=== PATIENT | male | born 1950 | race Caucasian/White ===

== ENCOUNTER 2019-09-23 06:00 | Outpatient (CLI) | payer MEDICARE, OTHER, SELFPAY ==
--- NOTE | 2019-09-23 | MR_ITS ---
WS: [id number] MRI LEFT SHOULDER NONCONTRAST TECHNIQUE: Sagittal T2, coronal T1, T2 and proton density imaging. Axial gradient PDE imaging. CLINICAL INFORMATION: CHRONIC PAIN, TENDONITIS OF BOTH SHOULDERS COMPARISON: None. FINDINGS: Moderate degenerative arthritis at the AC joint with moderate downsloping of the acromion. Loss of th e subacromial space with chronic thinning of the supraspinatus. Small amount of subacromial/subdeltoi d fluid. Edema at the AC joint. Near full-thickness tear of the supraspinatus measuring 1.5 cm. This is approximately 1.8 cm from the insertion. Chronic appearing atrophy of the supraspinatus muscle be lly. Tendinopathy in the infraspinatus which is otherwise intact. Normal teres minor. Chronic thinning of the subscapularis tendon with a small intrasubstance tear. Chronic diffuse thinni ng of the subscapularis tendon distally which appears intact. Small amount of fluid in the subcoracoi d bursa. Atrophic biceps tendon in the bicipital groove. Diffuse thinning of the intra-articular belen ps tendon. Chronic appearing diffuse irregularity involving the glenoid labrum. Suspected chronic wilder earing SLAP tear. Degenerative narrowing of the glenohumeral joint. MR/MR shoulder LT wo con* [id number] IMPRESSION: 1. Near full-thickness tear involving the supraspinatus measuring 1.5 cm with diffuse thinning of the tendon distally. Tear is 1.8 cm from insertion. 2. Moderate degenerative arthritis at the AC joint with downsloping of the acr omium and loss of the subacromial space. Edema at the AC joint with a small yue unt of subacromial/subdeltoid fluid.. 3. Chronic thinning of the subscapularis tendon distally with a small intrasub stance tear. 4. Diffuse thinning and atrophy long head of the biceps tendon in the bicipita l groove. Chronic appearing diffuse thinning of the intra-articular portion of the biceps tendon. 5. Degenerative fraying with chronic appearing SLAP tear involving the glenoid labrum.
== END 2019-09-23 06:01 | disposition home or self-care (01) ==
LOC: MRI 09-24 08:22
PROVIDERS: Family Provider Family Medicine; PCP Family Medicine; Visit Provider Specialist
DX: S43.432A Superior glenoid labrum lesion of left shoulder, initial encounter (principal); M77.8 Other enthesopathies, not elsewhere classified; M25.512 Pain in left shoulder; G89.29 Other chronic pain; M19.012 Primary osteoarthritis, left shoulder; M19.011 Primary osteoarthritis, right shoulder; X58.XXXA Exposure to other specified factors, initial encounter
CPT/HCPCS: 73221

== ENCOUNTER → 2019-09-30 09:51 | Outpatient (BNVA) | payer MEDICARE, OTHER, SELFPAY | PROVIDERS: Family Provider Family Medicine; PCP Family Medicine; Referring Provider Family Medicine; Visit Provider Internal Medicine Rheumatology | DX: M35.3 Polymyalgia rheumatica (principal); Z79.899 Other long term (current) drug therapy; M17.11 Unilateral primary osteoarthritis, right knee; M19.041 Primary osteoarthritis, right hand; M19.042 Primary osteoarthritis, left hand; Z79.52 Long term (current) use of systemic steroids | CPT/HCPCS: 99214 ==

== ENCOUNTER → 2019-10-04 10:56 | Outpatient (BNVA) | payer MEDICARE, OTHER, SELFPAY | PROVIDERS: Family Provider Family Medicine; PCP Family Medicine; Referring Provider Specialist; Visit Provider Psychiatry & Neurology Neurology | DX: G56.02 Carpal tunnel syndrome, left upper limb (principal); Z87.891 Personal history of nicotine dependence | CPT/HCPCS: 95886; 95908 ==

== ENCOUNTER 2019-10-29 06:46 | Day surgery (SDC) | payer MEDICARE, OTHER, SELFPAY ==
[2019-10-28 10:44] VITALS: BMI 29.0
[2019-10-29 07:07] VITALS: BP 161/85; PULSE 75; RESP 16; TEMP 36.3; O2SAT 97
--- NOTE | 2019-10-29 07:13 | ANES.PREANE2 ---
Pre-Anesthetic Assessment Pre-Anesthetic Assessment: Height/Weight: Height 1.88 m Weight 102.512 kg Temp Pulse Resp BP Pulse Ox 97.4 F L 75 16 161/85 97 10/29/19 07:07 10/29/19 07:07 10/29/19 07:07 10/29/19 07:07 10/29/19 07:07 Preop Diagnosis: Left carpal tunnel syndrome Proposed Procedure: Operation Date: 10/29/19 08:30 Proposed Procedures p Carpal Tunnel Release 64052 G56.02(Left) - Catie Pritchett MD Last intake: Intake Last Liquid Date 10/29/19 Last Liquid Time 06:45 Last Solid Date 10/28/19 Last Solid Time 19:00 Social: Social History: Alcohol (daily) and Tobacco (quit 2017) Exam: Pre-Anes Outpt Exam: alert, oriented x 3, clear to auscultation bilaterally and regular rate & rhythm Airway: Submandibular: WNL Cervical ROM: WNL MP: 1 Dentition: Other (teeth ok) Pulmonary: Pulmonary: None reported CV/HEM: CV/HEM: CAD and HTN Comments: H/O CABG 2017 : : None reported Hepatic: Hepatic: None reported GI: GI: GERD Metabolic: Metabolic: DM (diet controlled) and Hyperlipidemia Musc/skel: Musc/skel: OA/DJD Neuropsych: Neuropsych: None reported Anesthetic Plan: ASA status: 3 Anesthesia: Anesthesia Evaluation and Regional (specify below) (Stefani valentin) Risk of > 500 ml blood loss (7ml/kg in children): No PFSH Anesthesia PFSH: Medical History (Updated 10/29/19 @ 07:15 by Tomasz Yeboah MD) Accelerated essential hypertension Arthritis of both hands Arthritis of both knees Coronary artery disease FH: CABG (coronary artery bypass surgery) High risk medication use Hypercholesteremia 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
[2019-10-29 07:17] LABS: Glucose Point of Care 104 mg/dL (70-110)
[2019-10-29] MEDS: sodium chloride 0.9% 1,000 ML 30 ML IV (07:18)
--- NOTE | 2019-10-29 08:29 | PM.HPUD ---
H&P update H&P Update: DATE OF SURGERY/PROCEDURE: 10/29/19 DATE H&P PERFORMED: 10/13/19 H&P UPDATE INFORMATION: No changes to prior documentation and H&P is in [facility] EMR on date indicated PREOP DIAGNOSIS: Left carpal tunnel syndrome PRIMARY INDICATION FOR PROCEDURE: Carpal Tunnel Symptoms PLANNED PROCEDURE: Operation Date: 10/29/19 08:30 Proposed Procedures p Carpal Tunnel Release 70286 G56.02(Left) - Catie Pritchett MD Full H&P Medications/Allergies: Current Medications: Current Medications Generic Name Dose Route Start Last Admin Trade Name Freq PRN Reason Stop Dose Admin Sodium Chloride 1,000 mls @ 30 ml s/hr 10/29/19 06:15 10/29/19 07:18 Sodium Chloride 0.9% IV 10/30/19 06:14 30 mls/hr .Q24H JOVI Administration Perinent History: Medical/Surgical History: Medical History (Updated 10/29/19 @ 07:15 by Tomasz Yeboah MD) Accelerated essential hypertension Arthritis of both hands Arthritis of both knees Coronary artery disease FH: CABG (coronary artery bypass surgery) High risk medication use Hypercholesteremia 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
[2019-10-29 09:37] VITALS: BP 157/95; PULSE 67; RESP 16; TEMP 36.1; O2SAT 96
[2019-10-29 09:52] VITALS: BP 147/81; PULSE 64; RESP 16; TEMP 36.6; O2SAT 98
--- NOTE | 2019-10-29 10:04 | PM.OP ---
Operative Report Date of procedure: October 29, 2019 Pre-op Diagnosis: Left carpal tunnel syndrome Post-op diagnosis: same Post-op Findings: Compressed median nerve Procedure Done: Left carpal tunnel release Pathology: none sent Surgeon: Catie Pritchett Anesthesia: Other (Stefani block) Estimated blood loss (mL): 2 Tourniquet time (min): 37 IV fluids (mL): 600 Urine output: 0 cc, no Castaneda Complications: None Condition: stable Disposition: same day Brief History: This 69-year-old gentleman presented with complaints of numbness in the fingers consistent with carpal tunnel syndrome. After discussion, he wished to proceed with carpal tunnel release. Risks and complications were discussed with him and consents were signed. Questions were answered. Procedure: The patient was brought to the operating theater. The patient had a [place] block with MAC. The tourniquet was elevated to 250 mmHg for a total tourniquet time of 37 minutes. The patient was also given Ancef 2 g preoperatively. The arm was then prepped and draped with DuraPrep in usual fashion with the arm draped free. A surgical pause was performed. At the time, the surgical pause, we confirmed the site and side of surgery. We also confirmed the patient's identity, appropriate and timely administration of preoperative antibiotics and preoperative surgical markings. An incision was then made along the thenar crease. The incision crossed the wrist joint in a curvilinear fashion. Dissection continued through skin and soft tissues using a scalpel. The palmaris longus was identified along with the transverse carpal ligament. Each of these was released carefully to avoid injury to the median nerve. We were able to dissect gently into the carpal canal which was noted to be quite tight with significant compression across the median nerve. The nerve was visualized and was an hourglass shape. The canal was subsequently palpated to assure there was no bony encroachment upon the canal. There was a quite thickened fibrous tissue within the canal, and this was opened longitudinally as well. The canal was then palpated distally and proximally to assure that my small finger was passed easily without impingement. Finding this to be so, attention was directed to closure. The wound was irrigated with ropivacaine plain. It was then closed with 3-0 nylon in an interrupted mattress fashion. The skin was further injected with ropivacaine plain. Sterile dressing was then placed consisting of Xeroform gauze, fluffed fluffs, sterile soft roll, a volar splint, and an Michael wrap. The tourniquet was released after 37 minutes. There were no complications. There were no specimens. The procedure was well tolerated. Plan is the patient will be discharged home.
== END 2019-10-29 10:25 | disposition home or self-care (01) ==
PROVIDERS: Family Provider Family Medicine; PCP Family Medicine; Visit Provider Specialist
PROC: (CPT 64721; principal; 2019-10-29 08:30)
DX: G56.02 Carpal tunnel syndrome, left upper limb (principal); I10 Essential (primary) hypertension; I25.10 Atherosclerotic heart disease of native coronary artery without angina pectoris; Z95.1 Presence of aortocoronary bypass graft; E78.00 Pure hypercholesterolemia, unspecified; Z87.891 Personal history of nicotine dependence; K21.9 Gastro-esophageal reflux disease without esophagitis; E11.9 Type 2 diabetes mellitus without complications; Z79.52 Long term (current) use of systemic steroids; M17.10 Unilateral primary osteoarthritis, unspecified knee
CPT/HCPCS: 64721; 12345; 36416; 82962; J0690; J2704; J3490; J7030

== ENCOUNTER → 2019-12-20 09:49 | Outpatient (BNVA) | payer MEDICARE, OTHER, SELFPAY | PROVIDERS: Family Provider Family Medicine; PCP Family Medicine; Visit Provider Internal Medicine Rheumatology | DX: M35.3 Polymyalgia rheumatica (principal); Z79.899 Other long term (current) drug therapy | CPT/HCPCS: 36415; 80076; 82565; 85025; 85651; 86140 ==

== ENCOUNTER → 2019-12-20 09:57 | Outpatient (BNVA) | payer MEDICARE, OTHER, SELFPAY | PROVIDERS: Family Provider Family Medicine; PCP Family Medicine; Visit Provider Internal Medicine Rheumatology | DX: Z79.899 Other long term (current) drug therapy (principal) | CPT/HCPCS: 85025 ==

== ENCOUNTER → 2019-12-20 10:00 | Outpatient (BNVA) | payer MEDICARE, OTHER, SELFPAY | PROVIDERS: Family Provider Family Medicine; PCP Family Medicine; Visit Provider Internal Medicine Rheumatology | DX: Z79.899 Other long term (current) drug therapy (principal) | CPT/HCPCS: 85025 ==

== ENCOUNTER 2020-02-21 07:55 | Outpatient (CLI) | payer MEDICARE, OTHER, SELFPAY ==
--- NOTE | 2020-02-21 08:16 | ECG_ITS ---
NAME OF STUDY: LEXISCAN SESTAMIBI STRESS TEST INDICATION: CAD/FATIGUE, LEXISCAN STRESS TEST ORDERING PHYSICIAN: Brenden CLINICAL INFORMATION: Chest pain INTERPRETATION: 1. The patient was brought to the laboratory where Lexiscan was infused over 20 seconds. The resting blood pressure was 154/82. Maximum blood pressure was 154/82. The resting heart rate was 60 beats per minute. The maximum heart rate is 71 beats per minute. 2. The baseline electrocardiogram reveals sinus rhythm with occasional PACs and a right bundle branch block and possible old anterior wall myocardial infarction 3. With Lexiscan infusion, there were no ST segment changes to suggest ischemia. 4. The patient experienced no symptoms or arrhythmias during the examination. CONCLUSION: 1. Unremarkable Lexiscan infusion. 2. Nuclear imaging to follow. Electronically Signed On 02-22-2020 8:36:37 CDT by Leonid Wilcox M.D. [id number]
--- NOTE | 2020-02-21 08:17 | NMCV_ITS ---
NM karol perf SPECT r/s* [id number] Jose Cooley Age: 69 Gender: M : 1950 Exam Date: 02/21/2020 09:01 Ordering Phys: Leonid Wilcox MD ([email or web address]) Technologist: LUKE Damon Exam Location: [facility] Indications: CAD, fatigue STRESS TEST Please see separate stress test report in [facility] for full findings IMAGE PROTOCOL Rest/Stress 1 Lexiscan Day Radiopharmaceutical Dose (mCi) Administration Site Administered by Rest: Tc-99m 11.0 IV LUKE Almeida Sestamibi Stress:Tc-99m 32.6 IV LUKE Damon Sestamieverett Rest: 21-Feb-2020 60 Discovery 630 Stress: 21-Feb-2020 45 Discovery 630 0.4mg Lexiscan. Images obtained in supine and prone position. SPECT RESULTS Technical Quality: Good Raw Data Analysis: Normal Image Corrections: No attenuation or motion correction applied Summed Stress Score: 3 Summed Rest Score: 0 Summed Difference Score: 3 PERFUSION FINDINGS Small area of patchy decreased tracer uptake suggestive of reversibility noted in basal inferior and apical region of the left ventricle suggestive of small area of ischemia in RCA territory however in the absence of wall motion abnormality it could be artifact. EKG segment will be documented separately, clinical correlation advised. FUNCTIONAL RESULTS (calculated via Gated SPECT) Stress Image LV EF (%): 49 Stress EDV (mL):105 TID: 1.03 Stress ESV (mL):54 Rest Image LV EF (%): 49 FUNCTIONAL FINDINGS: There is normal left ventricular systolic function. IMPRESSIONS Small area of patchy decreased tracer uptake suggestive of reversibility noted in basal inferior and apical region of the left ventricle suspicious for small area of ischemia in RCA territory however in the absence of wall motion abnormality it could be artifact. EKG segment will be documented separately, clinical correlation advised. Kirk Morris MD (Electronically Signed) Final Date: 21 February 2020 13:17 S
[2020-02-21 08:18] VITALS: BMI 29.5
[2020-02-21] MEDS: regadenoson 0.4 Mg/5 ml Syringe IVP (09:40)
[2020-02-21 09:58] VITALS: BP 144/73; PULSE 71
== END 2020-02-21 07:56 | disposition home or self-care (01) ==
PROVIDERS: Family Provider Family Medicine; PCP Family Medicine; Visit Provider Internal Medicine Cardiovascular Disease
DX: I25.10 Atherosclerotic heart disease of native coronary artery without angina pectoris (principal)
CPT/HCPCS: 78452; 93017; A9500; J2785

== ENCOUNTER → 2020-03-02 11:04 | Outpatient (BNVA) | payer MEDICARE, OTHER, SELFPAY | PROVIDERS: Family Provider Family Medicine; PCP Family Medicine; Visit Provider Internal Medicine Rheumatology | DX: M17.11 Unilateral primary osteoarthritis, right knee (principal); Z79.899 Other long term (current) drug therapy | CPT/HCPCS: 36415; 80076; 82565; 85025; 85651; 86140 ==

== ENCOUNTER → 2020-03-28 15:46 | Outpatient (BNVA) | payer MEDICARE, OTHER, SELFPAY | PROVIDERS: Family Provider Family Medicine; PCP Family Medicine; Visit Provider Internal Medicine Rheumatology | DX: M35.3 Polymyalgia rheumatica (principal); M05.9 Rheumatoid arthritis with rheumatoid factor, unspecified; M17.11 Unilateral primary osteoarthritis, right knee; Z71.89 Other specified counseling; Z79.899 Other long term (current) drug therapy | CPT/HCPCS: 99214 ==

== ENCOUNTER 2020-04-16 07:11 | Emergency (ER) | payer MEDICARE, OTHER, SELFPAY ==
[2020-04-16 07:14] VITALS: BP 198/97; PULSE 70; RESP 16; TEMP 36.6; O2SAT 98; BMI 28.1
--- NOTE | 2020-04-16 07:20 | ED_ITS ---
HPI - Extremity Problem General: Chief complaint: Extremity Problem,Nontraumatic Stated complaint: R shoulder/arm pain Time Seen by Provider: 04/16/20 07:13 Source: patient Mode of arrival: ambulatory Limitations: no limitations History of Present Illness: HPI Narrative: Patient is a 69-year-old male who presents to ED today with a complaint of back and right shoulder pain. Patient tells me he was trying to get out of bed this morning and pushed his neck up against his pillow in order to lean forward and states he immediately felt something in his right posterior back. He states the pain seems to be to the right of his thoracic midline and radiates into his right shoulder. Patient does have a history of chronic shoulder pain-has had MRI on this shoulder recently. Patient tells me pain seems to be worse with range of motion of the right shoulder and range of motion of his neck. He is not having any chest pain or difficulty breathing. He states pain feels like a spasm. Reports he has had similar pains previously but nothing this bad. Reports doing a lot of power washing over the past few days. He states he is having some tingling to his R hand MD Complaint: extremity pain Pain Consistency: constant Location: right and upper extremity Exacerbating factors: range of motion Associated symptoms: Reports no associated symptoms; Deny chest pain Review of Systems Eyes: Denies: change in vision ENMT: Denies: throat pain or odynophagia Card: Denies: chest pain, palpitations, lightheadedness or pre-syncope Resp: Denies: dyspnea GI: Denies: abdominal pain Musc: Reports: back pain and extremity pain; Denies: extremity swelling or joint swelling Neuro: Denies: headache(s), weakness in extremities or sensory changes (R hand) PFS ED PFSH: Medical History (Updated 04/16/20 @ 09:12 by BERTHA Tran) Accelerated essential hypertension Arthritis of both hands Arthritis of both knees Beta-dwain intolerance Chronic steroid use Coronary artery disease Diabetes Elevated PSA r/t acute prostatitis. 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 Polymyalgia rheumatica Surgical History (Updated 03/28/20 @ 20:25 by Ayad Marks MD) History of coronary artery bypass graft x 3 Hx of appendectomy Hx of cholecystectomy S/P carpal tunnel release Family History Denies family history of Systemic lupus erythematosus, unspecified Rheumatoid arthritis Diabetes Stroke Social History (Updated 04/16/20 @ 07:20 by Ildefonso David RN) Smoking and tobacco status: former smoker Alcohol intake: current Alcohol intake frequency: 0-2 Drinks per Day Substance/Drug Use: never Adopted: No Caregiver/support person: No Lives independently: No Household members: spouse Marital status: Current occupational status: retired History of recent travel: No Current gender identity: Male Physical Exam Const: COMMON NORMALS: no acute distress, patient oriented x3, no limitations and alert Neck/C-Spine: COMMON NORMALS: full ROM CERVICAL SPINE: Yes cervical ROM normal, No Cervical spine tenderness and No Paracervical muscle tenderness OTHER: pain to R mid-back with full neck flexion Back/Pelvis: THORACIC SPINE/UPPER BACK: No thoracic spinal tenderness LUMBAR SPINE/LOWER BACK: No lumbar spinal tenderness OTHER: pt has TTP between medial scapula border and R thoracic paraspinal musculature BACK IMAGE (MALE): 1. TTP; palpation and neck flexion reproduces pain Extremity: COMMON NORMALS: normal to inspection and full ROM GENERAL: Yes normal exam except as noted Neuro: COMMON NORMALS: patient oriented x3, moves all extremities, no focal motor deficits and no sensory deficits noted SENSORIUM/ORIENTATION: Yes alert MOTOR EXAM: 5/5 motor strength present throughout Skin: COMMON NORMALS: no rashes or lesions noted GENERAL SKIN EXAM: no rashes or lesions noted Course Vital Signs: Vital signs: Vital Signs Temperature 97.9 F 04/16/20 07:14 Pulse Rate 70 04/16/20 07:14 Respiratory Rate 18 04/16/20 08:36 Blood Pressure 198/97 04/16/20 07:14 Pulse Oximetry 98 04/16/20 07:14 MDM - Extremity (Nontraumatic) MDM Narrative: Medical decision making narrative: Patient's history and physical exam is consistent with a musculoskeletal strain. We will treat him with muscle relaxers at home in addition to anti-inflammatories. Patient states he does have some leftover pain medications he may use. 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 Recommend he follow-up with PCP early next week for reevaluation. Return to ED precautions given. Discharge Plan Discharge Patient Disposition: Home Clinical Impression: Strain of right trapezius muscle Qualifiers: Encounter type: initial encounter Qualified Code(s): S46.811A - Strain of other muscles, fascia and tendons at shoulder and upper arm level, right arm, initial encounter Condition: Stable Prescriptions: New Valium 5 mg tablet 5 mg PO Q6H PRN (Reason: muscle spasm) Qty: 20 RF: 0 No Action aspirin [Aspir-81] 81 mg tablet,delayed release (DR/EC) 81 mg PO DAILY RF: 0 potassium chloride 10 mEq tablet extended release 10 meq PO DAILY RF: 0 benazepril 20 mg tablet 40 mg PO DAILY RF: 0 amlodipine 10 mg tablet 10 mg PO ONCE RF: 0 atorvastatin [Lipitor] 40 mg tablet 40 mg PO DAILY RF: 0 fluticasone propionate 50 mcg/actuation spray,suspension 1 spray INTRANASAL Q12H RF: 0 hydrochlorothiazide 25 mg tablet 25 mg PO QAM RF: 0 sildenafil [Viagra] 25 mg tablet 25 mg PO ONCE RF: 0 cholecalciferol (vitamin D3) 25 mcg (1,000 unit) capsule 1,000 unit PO DAILY Qty: 30 RF: 3 omeprazole 40 mg capsule,delayed release(DR/EC) 40 mg PO DAILY Qty: 30 RF: 3 prednisone 2.5 mg tablet See Rx Instructions PO .COMPLEX Qty: 120 RF: 3 Discharge Orders: Discharge Order (Routine); Ordered 04/16/20 Ordered By: Tamika Schneider Referrals: Triston Casiano DO [Primary Care Provider] - Patient Instructions: Muscle Strain (ED) Activity Restrictions/Additional Instructions: As discussed you may take your home pain medications as directed. You may in addition take 600-800 mg of ibuprofen every 6-8 hours OR an Aleve every 12 hours for pain. You may try ice, heat, massage therapy. Please follow-up with primary care next week for reevaluation. He may return to the emergency de partment for any worsening pain or any other concerns you may have. Coding Level of Care Code ED Surveyor Helper Rod for Bobbi Ma Exam Detailed
[2020-04-16] MEDS: ketorolac 30 mg/mL INJ IM (07:40)
[2020-04-16 07:41] VITALS: RESP 18
[2020-04-16] MEDS: morphine 4 mg/mL SDV 1 mL IM (07:41)
[2020-04-16] MEDS: orphenadrine 30 mg/mL Inj 2 mL 60 MG IM (07:42)
--- NOTE | 2020-04-16 07:55 | PC.NURSE ---
Patient reports that his pain is worse and that his right hand is numb
--- NOTE | 2020-04-16 08:18 | PC.NURSE ---
Rounded on patient. Patient reports the pain has eased up. Patient states that he is still having numbness in his right hand. Physician notified about patients symptoms.
[2020-04-16] MEDS: dexamethasone 10 mg/mL INJ 6 MG IM (08:35)
[2020-04-16 08:36] VITALS: RESP 18
[2020-04-16] MEDS: HYDROmorphone 1 mg/mL INJ 1 mL SUBCUT (08:36)
[2020-04-16 09:48] VITALS: BP 161/72; PULSE 52; RESP 16; O2SAT 95
== END 2020-04-16 09:48 | disposition home or self-care (01) ==
PROVIDERS: Emergency Provider Physician Assistant; PCP Family Medicine
DX: S46.811A Strain of other muscles, fascia and tendons at shoulder and upper arm level, right arm, initial encounter (principal); Z79.82 Long term (current) use of aspirin; X50.9XXA Other and unspecified overexertion or strenuous movements or postures, initial encounter; I10 Essential (primary) hypertension; I25.10 Atherosclerotic heart disease of native coronary artery without angina pectoris; E11.9 Type 2 diabetes mellitus without complications; Z95.1 Presence of aortocoronary bypass graft; Z87.891 Personal history of nicotine dependence
CPT/HCPCS: 12345; 96372; 99282; 99283; J1100; J1170; J1885; J2270; J2360

== ENCOUNTER → 2020-05-11 08:35 | Outpatient (BNVA) | payer MEDICARE, OTHER, SELFPAY | PROVIDERS: PCP Family Medicine; Visit Provider Specialist | DX: M79.641 Pain in right hand (principal) | CPT/HCPCS: 73130 ==

== ENCOUNTER 2020-05-20 09:59 | Inpatient (IN) | payer MEDICARE, OTHER, SELFPAY ==
[2020-05-20] VITALS (13 sets, daily range): BP systolic 95–145; BP diastolic 54–95; PULSE 71–93; RESP 3–21; TEMP 36.6–37.2; O2SAT 91–98; BMI 28.1
--- NOTE | 2020-05-20 10:25 | XRR_ITS ---
PROCEDURE INFORMATION: Exam: XR Chest, 1 View Exam date and time: 05/20/2020 10:38 AM Age: 69 years old Clinical indication: Cough TECHNIQUE: Imaging protocol: XR of the chest Views: 1 view. COMPARISON: No relevant prior studies available. FINDINGS: Lungs: No CHF or consolidation. Suboptimal visualization of the left lung base. Pleural space: Unremarkable. No pleural effusion. No pneumothorax. Heart/Mediastinum: Unremarkable. No cardiomegaly. Bones/joints: No acute findings. Sternotomy. XR/XR chest 1V portable [id number] IMPRESSION: No acute findings.
--- NOTE | 2020-05-20 10:26 | ECG_ITS ---
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 Measurements Intervals [place] Rate: 78 P: -12 NV: 126 QRS: 17 QRSD: 138 T: 30 QT: 392 QTc: 447 Interpretive Statements SINUS RHYTHM WITH OCCASIONAL SUPRAVENTRICULAR PREMATURE COMPLEXES RIGHT BUNDLE BRANCH BLOCK [120+ ms QRS DURATION, UPRIGHT V1, 40+ ms S IN I/aVL/V4/V5/V6] No previous ECG available for comparison Electronically Signed On 05-20-2020 13:14:47 CDT by Ludy Lopez M.D. [id number]
--- NOTE | 2020-05-20 10:29 | ED_ITS ---
HPI - General Adult General: Chief complaint: General Medical Stated complaint: MCNEAL/D/FEVER RECENT Time Seen by Provider: 05/20/20 10:18 Source: patient Mode of arrival: ambulatory Limitations: no limitations History of Present Illness: HPI narrative: Jose is a nice 69-year-old male who comes in complaining of generalized weakness, abdominal pain and fatigue. States that symptoms began about an hour last night after mowing. He has a mild headache when he bends over but otherwise he has no headache at rest. He denies any neck pain or stiffness. He denies sore throat, loss of sense of taste or loss of sense of smell. Denies any chest pain. His belly pain is described more as a nauseous sensation. Patient does have dysuria and has had a history of prostrate problems according to him. Patient does state that he takes prednisone daily for arthritis. Patient did have a fever last night of 101.8. At this time he states he otherwise feels okay as long as he is resting. Associated symptoms: Reports malaise and nausea; Deny chest pain, confusion, diaphoresis, dyspnea, rash, palpitations, syncope or vomiting Review of Systems Const: Reports: fever(s), chills, body aches, fatigue and malaise; Denies: diaphoresis Eyes: Denies: change in vision, blurry vision, photophobia, eye discomfort, eye discharge or eye redness ENMT: Denies: throat pain, odynophagia, hoarseness, swelling of lips/tongue, ear or mastoid pain, ear discharge, change in hearing or nasal discharge Card: Denies: chest pain, palpitations, irregular heart rhythm, edema, lightheadedness, syncope, pre-syncope, dyspnea on exertion or orthopnea Resp: Denies: dyspnea, productive cough, non-productive cough, wheezing, hemoptysis or chest congestion GI: Reports: abdominal pain and nausea; Denies: vomiting, hematemesis, coffee ground emesis, heartburn, diarrhea, constipation, GI cramping, hematochezia or melena : Reports: difficulty urinating; Denies: flank pain, dysuria, urinary frequency, urinary urgency or hematuria Musc: Denies: neck pain, back pain, extremity pain, extremity swelling, joint pain, joint swelling, joint redness, joint warmth or joint stiffness Skin/Breast: Denies: rash, pruritus, erythema or skin tenderness Neuro: Denies: numbness in extremities, weakness in extremities, sensory changes, lack of coordination, difficulty walking, dizziness, vertigo, confusion, Slurred speech present or seizure-like activity Edgar/Lymph: Denies: easy bruising, easy bleeding, petechiae, purpura or enlarged lymph nodes All/Imm: Denies: urticaria, throat swelling, tongue swelling, facial swelling or acute wheezing PFSH ED PFSH: Medical History Accelerated essential hypertension Arthritis of both hands Arthritis of both knees Beta-dwain intolerance Chronic steroid use Coronary artery disease Diabetes Elevated PSA r/t acute prostatitis. High risk medication use Hypercholesteremia Immunization counseling Other shelter (current) drug therapy Polymyalgia rheumatica Surgical History History of coronary artery bypass graft x 3 Hx of appendectomy Hx of cholecystectomy S/P carpal tunnel release Family History Denies family history of Systemic lupus erythematosus, unspecified Rheumatoid arthritis Diabetes Stroke Social History Smoking and tobacco status: former smoker Alcohol intake: current Alcohol intake frequency: 0-2 Drinks per Day Adopted: No Caregiver/support person: No Lives independently: No Household members: spouse Marital status: Current occupational status: retired History of recent travel: No Current gender identity: Male Physical Exam Const: COMMON NORMALS: no acute distress, patient oriented x3, no limitations, healthy appearing and well nourished GENERAL APPEARANCE: cooperative, well kempt and well developed HENMT: COMMON NORMALS: normocephalic, atraumatic, external ears normal, EAC's normal and Normal external nose present HEAD & SCALP: normal to inspection, normocephalic and atraumatic FACE & SINUS: normal facial exam and face symmetric NOSE: Normal external nose present and Normal nares present EXTERNAL EAR: Yes external ears normal EXTERNAL AUDITORY CANAL: EAC's normal MOUTH: Normal oral and palatal mucosa present, lip normal and tongue normal Eye: COMMON NORMALS: Equal, round and reactive pupils present and conjunctivae normal GENERAL EYE: appearance normal, both eyes and all related structures ALIGNMENT: Yes alignment normal PERIORBITAL: periorbital findings normal EYELID: eyelids normal CONJUNCTIVA: Yes conjunctivae normal SCLERA: sclerae normal PUPIL: Yes Equal, round and reactive pupils present Neck/C-Spine: COMMON NORMALS: full ROM, no lymphadenopathy, supple, no meningeal signs and no JVD GENERAL: Yes normal visual inspection and Yes trachea midline Chest: COMMONS NORMALS: normal inspection of the chest and normal palpation of entire chest wall Resp: COMMON NORMALS: normal respiratory effort, No retractions, No use of accessory muscles and clear to auscultation bilaterally EFFORT & INSPECTION: Yes able to speak in complete sentences and Yes symmetric chest movement AUSCULTATION: clear to auscultation bilaterally, no crackles, no rales, no rhonchi and no wheezes Cardio: COMMON NORMALS: no JVD, regular rate, regular rhythm, S1 normal heart sound present and S2 normal heart sound present RATE: regular rate RHYTHM: regular rhythm HEART SOUNDS: S1 normal heart sound present, S2 normal heart sound present, no click, no gallops, no murmurs, no rubs and abnormal split S2 GI: COMMON NORMALS: Soft to palpation and No hepatosplenomegaly present PALPATION: Yes Soft to palpation, No Tenderness to palpation present (GI), No Guarding due to palpation present (GI), No Rigid due to palpation, Yes No hepatosplenomegaly present, No Hernia present, No Palpable mass present and No Pulsatile mass present : COMMON NORMALS: Yes no CVA tenderness BLADDER/KIDNEY EXAM: Yes no CVA tenderness Back/Pelvis: COMMON NORMALS: no CVA tenderness, thoracic and lumbar spine normal to inspection, no thoracic nor lumbar tenderness and thoraco-lumbar ROM normal Extremity: COMMON NORMALS: normal to inspection, full ROM, capillary refill normal, no joint enlargement, no clubbing, cyanosis or edema and no calf tenderness Neuro: COMMON NORMALS: patient oriented x3, CN's II-XII intact bilaterally, moves all extremities, no focal motor deficits and no sensory deficits noted MENINGEAL SIGNS: Yes no meningeal signs SPEECH: speech normal Psych: COMMON NORMALS: mental status grossly normal, Normal thought process present, cooperative, normal affect, speech normal and activity/motor behavior normal APPEARANCE: Yes well kempt SPEECH: Yes normal speech THOUGHT PROCESS: Normal thought process present Skin: COMMON NORMALS: no rashes or lesions noted, turgor normal, no jaundice, no petechiae and no mottling GENERAL SKIN EXAM: no rashes or lesions noted and turgor normal Course ED course: 1140 -Case, EKG and labs reviewed with Dr. Tao, he does not believe the EKG meets STEMI criteria. He agrees that the findings are likely secondary to the right bundle branch block. With the patient not having chest pain or shortness of breath he concurs with hydrating, treating for sepsis and following EKGs and cardiac enzymes. Vital Signs: Vital signs: Vital Signs Temperature 98.3 F 05/20/20 10:22 Pulse Rate 77 05/20/20 15:45 Respiratory Rate 17 05/20/20 15:45 Blood Pressure 110/81 05/20/20 15:45 Pulse Oximetry 96 05/20/20 15:45 MDM - General Adult MDM Narrative: Medical decision making narrative: Mr. Cooley is a nice 69-year-old male who comes in complaining generalized weakness and fatigue after working in his yard yesterday. Patient appears to be in acute renal failure and has had some low blood pressures. His lactate is elevated but appears to be responding to septic shock treatment. I did give him 100 mg hydrocortisone empirically secondary his immune suppression with prednisone. Patient is had antibiotics, IV fluids and is feeling better and his blood pressure is back to normal. He is had minimal if any urine output up to this point with approximately 75 to 100 ccs out total. We will continue IV fluids and he will be admitted to the ICU for precautions as he was hypertensive here briefly. Lab Data: Labs: Lab Results 05/20/20 05/20/20 05/20/20 Range/Units 10:35 10:35 10:35 WBC 24.8 H (4.0-10.0) 10^3/ uL RBC 4.49 (4.1-5.3) 10^6/u L Hgb 15.3 (11.7-16.6) g/dL Hct 44.9 (42.0-52.0) % MCV 100.0 H (80-94) fL MCH 34.1 H (28.0-34.0) pg MCHC 34.1 (30.0-36.0) g/dL RDW 13.0 (12.1-15.1) % Plt Count 160 (130-400) 10^3/c mm MPV 10.5 H (7.4-10.4) fL Neut % (Auto) 91.8 % Lymph % (Auto) 1.5 % [place] % (Auto) 2.8 % Eos % (Auto) 0.0 % Baso % (Auto) 0.3 % Neut # (Auto) 22.76 H (1.8-7.7) 10^3/u L Lymph # (Auto) 0.4 L (0.8-4.8) 10^3/u L [place] # (Auto) 0.7 (0.2-0.9) 10^3/u L Eos # (Auto) 0.0 (0.0-0.8) 10^3/u L Baso # (Auto) 0.1 (0.0-0.1) 10^3/u L Nucleated RBC % (a uto) 0 % Nucleated RBCs # 0.0 /100WBC PT (12.1-14.9) SECO NDS INR (0.8-1.2) Sodium 130 L (136-145) mmol/L Potassium 4.2 (3.5-5.1) mmol/L Chloride 90 L (98-107) mmol/L Carbon Dioxide 23 (22-29) mmol/L Anion Gap 21.2 H (5-19) BUN 33 H (8-23) mg/dL Creatinine 3.7 H (0.7-1.2) mg/dL GFR Calculation Not Reportable Glucose 149 H (65-115) mg/dL Calculated Osmolal ity 270 L (285-295) mOsm/k g Lactic Acid 5.0 H* (0.5-2.2) mmol/L Lactic Acid (Sepsi s) (0.5-2.2) mmol/L Calcium 9.6 (8.5-10.5) mg/dL Magnesium 1.6 L (1.7-2.3) mg/dL Total Bilirubin 0.9 (0.15-1.2) mg/dL AST 40 (0-40) U/L ALT 36 (0-41) U/L Alkaline Phosphata se 54 (40-130) IU/L Creatine Kinase 413 H* (39-308) U/L Troponin T Baselin e (0-15) ng/L Troponin T 120 Min [place] (0-15) ng/L Delta Troponin T (0-10) ABS# Total Protein 6.3 L (6.6-8.7) g/dL Albumin 3.8 (3.5-5.2) g/dL Globulin 2.5 (1.3-4.6) g/dL Lipase 40 (13-60) U/L TSH 3.05 (0.27-4.20) uIU/ mL Urine Color (Yellow) Urine Appearance (CLEAR) Urine pH (5-7) Ur Specific Gravit y (1.005-1.030) Urine Protein (Negative) Urine Glucose (UA) (Normal) Urine Ketones (Negative) Urine Blood (Negative) Urine Nitrate (Negative) Urine Bilirubin (NEGATIVE) Urine Urobilinogen (Negative) mg/dL Ur Leukocyte Gayla ase (Negative) Urine RBC (0-2) /hpf Urine WBC (0-5) /hpf Ur Squamous Epith Cells (0-5) Amorphous Sediment Urine Bacteria (NONE) Urine Mucus Serum Ketones Negative (Negative) SARS-CoV-2 Ag (Rap id) (Negative) 05/20/20 05/20/20 05/20/20 Range/Units 10:35 10:35 11:54 WBC (4.0-10.0) 10^3/ uL RBC (4.1-5.3) 10^6/u L Hgb (11.7-16.6) g/dL Hct (42.0-52.0) % MCV (80-94) fL MCH (28.0-34.0) pg MCHC (30.0-36.0) g/dL RDW (12.1-15.1) % Plt Count (130-400) 10^3/c mm MPV (7.4-10.4) fL Neut % (Auto) % Lymph % (Auto) % [place] % (Auto) % Eos % (Auto) % Baso % (Auto) % Neut # (Auto) (1.8-7.7) 10^3/u L Lymph # (Auto) (0.8-4.8) 10^3/u L [place] # (Auto) (0.2-0.9) 10^3/u L Eos # (Auto) (0.0-0.8) 10^3/u L Baso # (Auto) (0.0-0.1) 10^3/u L Nucleated RBC % (a uto) % Nucleated RBCs # /100WBC PT 14.30 (12.1-14.9) SECO NDS INR 1.08 (0.8-1.2) Sodium (136-145) mmol/L Potassium (3.5-5.1) mmol/L Chloride (98-107) mmol/L Carbon Dioxide (22-29) mmol/L Anion Gap (5-19) BUN (8-23) mg/dL Creatinine (0.7-1.2) mg/dL GFR Calculation Glucose (65-115) mg/dL Calculated Osmolal ity (285-295) mOsm/k g Lactic Acid (0.5-2.2) mmol/L Lactic Acid (Sepsi s) (0.5-2.2) mmol/L Calcium (8.5-10.5) mg/dL Magnesium (1.7-2.3) mg/dL Total Bilirubin (0.15-1.2) mg/dL AST (0-40) U/L ALT (0-41) U/L Alkaline Phosphata se (40-130) IU/L Creatine Kinase (39-308) U/L Troponin T Baselin e 124 H* (0-15) ng/L Troponin T 120 Min [place] (0-15) ng/L Delta Troponin T (0-10) ABS# Total Protein (6.6-8.7) g/dL Albumin (3.5-5.2) g/dL Globulin (1.3-4.6) g/dL Lipase (13-60) U/L TSH (0.27-4.20) uIU/ mL Urine Color (Yellow) Urine Appearance (CLEAR) Urine pH (5-7) Ur Specific Gravit y (1.005-1.030) Urine Protein (Negative) Urine Glucose (UA) (Normal) Urine Ketones (Negative) Urine Blood (Negative) Urine Nitrate (Negative) Urine Bilirubin (NEGATIVE) Urine Urobilinogen (Negative) mg/dL Ur Leukocyte Gayla ase (Negative) Urine RBC (0-2) /hpf Urine WBC (0-5) /hpf Ur Squamous Epith Cells (0-5) Amorphous Sediment Urine Bacteria (NONE) Urine Mucus Serum Ketones (Negative) SARS-CoV-2 Ag (Rap id) Negative (Negative) 05/20/20 05/20/20 05/20/20 Range/Units 12:54 12:54 12:55 WBC (4.0-10.0) 10^3/ uL RBC (4.1-5.3) 10^6/u L Hgb (11.7-16.6) g/dL Hct (42.0-52.0) % MCV (80-94) fL MCH (28.0-34.0) pg MCHC (30.0-36.0) g/dL RDW (12.1-15.1) % Plt Count (130-400) 10^3/c mm MPV (7.4-10.4) fL Neut % (Auto) % Lymph % (Auto) % [place] % (Auto) % Eos % (Auto) % Baso % (Auto) % Neut # (Auto) (1.8-7.7) 10^3/u L Lymph # (Auto) (0.8-4.8) 10^3/u L [place] # (Auto) (0.2-0.9) 10^3/u L Eos # (Auto) (0.0-0.8) 10^3/u L Baso # (Auto) (0.0-0.1) 10^3/u L Nucleated RBC % (a uto) % Nucleated RBCs # /100WBC PT (12.1-14.9) SECO NDS INR (0.8-1.2) Sodium (136-145) mmol/L Potassium (3.5-5.1) mmol/L Chloride (98-107) mmol/L Carbon Dioxide (22-29) mmol/L Anion Gap (5-19) BUN (8-23) mg/dL Creatinine (0.7-1.2) mg/dL GFR Calculation Glucose (65-115) mg/dL Calculated Osmolal ity (285-295) mOsm/k g Lactic Acid (0.5-2.2) mmol/L Lactic Acid (Sepsi s) 2.8 H (0.5-2.2) mmol/L Calcium (8.5-10.5) mg/dL Magnesium (1.7-2.3) mg/dL Total Bilirubin (0.15-1.2) mg/dL AST (0-40) U/L ALT (0-41) U/L Alkaline Phosphata se (40-130) IU/L Creatine Kinase (39-308) U/L Troponin T Baselin e (0-15) ng/L Troponin T 120 Min [place] 82.38 H (0-15) ng/L Delta Troponin T -41.62 L (0-10) ABS# Total Protein (6.6-8.7) g/dL Albumin (3.5-5.2) g/dL Globulin (1.3-4.6) g/dL Lipase (13-60) U/L TSH (0.27-4.20) uIU/ mL Urine Color Yellow (Yellow) Urine Appearance Cloudy (CLEAR) Urine pH 5 (5-7) Ur Specific Gravit y 1.020 (1.005-1.030) Urine Protein 3+ H (Negative) Urine Glucose (UA) Norm (Normal) Urine Ketones 1+ H (Negative) Urine Blood 2+ H (Negative) Urine Nitrate Negative (Negative) Urine Bilirubin 1+ H (NEGATIVE) Urine Urobilinogen 1 H (Negative) mg/dL Ur Leukocyte Gayla ase 2+ H (Negative) Urine RBC 15-25 H (0-2) /hpf Urine WBC Too numerous to c nt H (0-5) /hpf Ur Squamous Epith Cells 0-4 H (0-5) Amorphous Sediment Not Reportable Urine Bacteria 2+ H (NONE) Urine Mucus 2+ Serum Ketones (Negative) SARS-CoV-2 Ag (Rap id) (Negative) Imaging Data^: CXR: Attestation: I personally reviewed and interpreted this imaging study as follows: My impression: Possible left lower lobe infiltrate CT Abd/Pel: Radiologist's impression: [address] [address] [address] Scan Report Signed Patient: Jose Cooley Unit #: [id number] : 1950 Age/Sex: 69 / M ADM Date: 05/20/20 Loc: ER Room/Bed: Attending Dr: Ordering Provider/Ordering MD: Letha Montemayor DO Date of Service: 05/20/20 Procedure(s): CT abdomen pelvis wo con [id number] Accession Number(s): [id number] Report Number: [id number] PROCEDURE INFORMATION: Exam: CT Abdomen And Pelvis Without Contrast Exam date and time: 05/20/2020 11:47 AM Age: 69 years old Clinical indication: Abdominal pain; Generalized; Additional info: Abdominal pain, weakness, decreased renal function TECHNIQUE: Imaging protocol: Computed tomography of the abdomen and pelvis without contrast. Radiation optimization: All CT scans at this facility use at least one of these dose optimization techniques: automated exposure control; mA and/or kV adjustment per patient size (includes targeted exams where dose is matched to clinical indication); or iterative reconstruction. COMPARISON: US gall bladder [id number] 03/09/2018 2:51 AM RADIATION DOSE METRICS: Total DLP (mGy-cm): 1469.28 FINDINGS: Liver: No mass. Gallbladder and bile ducts: Cholecystectomy. Pancreas: Normal. No ductal dilation. Spleen: Normal. No splenomegaly. Adrenals: Normal. No mass. Kidneys and ureters: Small bilateral renal calculi, no hydronephrosis of either kidney. Multiple simple cysts, largest approximately 7.5 cm. Small left renal hyperdense lesion estimated at 1 cm consistent with hemorrhagic cyst. Indeterminate partially exophytic right lower pole renal lesion estimated at 4 cm. Stomach and bowel: No acute findings. No obstruction. No mucosal thickening. Appendix: No evidence of appendicitis. Intraperitoneal space: Unremarkable. No free air. No significant fluid collection. Vasculature: No abdominal aortic aneurysm. Lymph nodes: No significant adenopathy. Bladder: Unremarkable as visualized. Reproductive: Prostate enlargement. Bones/joints: Lumbar degenerative change, no acute fracture. Soft tissues: Unremarkable. CT/CT abdomen pelvis con [id number] IMPRESSION: Bilateral renal calculi, no hydronephrosis. Indeterminate 4 cm right renal lesion, recommend follow-up multiphasic contrast enhanced CT including delayed images or MRI for further evaluation. Radiation Dose CTDIVOL = (mGy): DLP = 1469.28 (mGy-cm) Dictated By: Aguila Schuster MD Signed By: Aguila Schuster MD Signed Date/Time: 05/20/20 1222 DD/ 1221 EKG Data^: EKG 1: Attestation: I personally reviewed and interpreted this EKG as follows: EKG interpretation date: 05/20/20 EKG interpretation time: 10:49 Interpretation: Normal sinus rhythm at 78 beats a minute, right bundle branch block, normal axis, nonspecific ST and T wave changes. Confirm with Dr. Tao. Computer generated interpretation: Chest X-Ray 05/20/20 10:25 IMPRESSION: No acute findings. Abdomen/Pelvis CT 05/20/20 10:58 IMPRESSION: Bilateral renal calculi, no hydronephrosis. Indeterminate 4 cm right renal lesion, recommend follow-up multiphasic contrast enhanced CT including delayed images or MRI for further evaluation. Radiation Dose CTDIVOL = (mGy): DLP = 1469.28 (mGy-cm) EKG 2: Attestation: I personally reviewed and interpreted this EKG as follows: EKG interpretation date: 05/20/20 EKG interpretation time: 12:36 Interpretation: Normal sinus rhythm at 71 beats a minute, right bundle branch block, intervals, no acute ST or T wave changes. Computer generated interpretation: Chest X-Ray 05/20/20 10:25 IMPRESSION: No acute findings. Abdomen/Pelvis CT 05/20/20 10:58 IMPRESSION: Bilateral renal calculi, no hydronephrosis. Indeterminate 4 cm right renal lesion, recommend follow-up multiphasic contrast enhanced CT including delayed images or MRI for further evaluation. Radiation Dose CTDIVOL = (mGy): DLP = 1469.28 (mGy-cm) Discharge Plan Discharge Patient Disposition: Admitted As Inpatient Admit Provider: Marly Barr Clinical Impression: Acute UTI, Elevation of cardiac enzymes Sepsis Qualifiers: Sepsis type: sepsis due to unspecified organism Sepsis acute organ dysfunction status: with acute organ dysfunction Severe sepsis acute organ dysfunction type: acute renal failure Acute renal failure type: unspecified Severe sepsis shock status: without septic shock Qualified Code(s): A41.9 - Sepsis, unspecified organism Acute renal failure Qualifiers: Acute renal failure type: unspecified Qualified Code(s): N17.9 - Acute kidney failure, unspecified Condition: Stable Referrals: Triston Casiano DO [Primary Care Provider] - Discharge Date/Time: 05/20/20 13:45 Coding Level of Care Code ED [employer] for Chg Fwd Exam Comprehensive
[2020-05-20] MEDS: sodium chloride 0.9% 1,000 ML 999 ML IV ×3 (10:43→13:00)
[2020-05-20] MEDS: hydrocortisone 100 mg/2 mL SDV IVP (10:44)
[2020-05-20] MEDS: ondansetron 2 mg/ML SDV 2 mL 4 MG IVP (10:44)
[2020-05-20 10:50] LABS: Basophils # 0.1 10^3/uL (0.0-0.1); Basophils % 0.3 %; Hematocrit 44.9 % (42.0-52.0); Hemoglobin 15.3 g/dL (11.7-16.6); Lymphocytes # 0.4 10^3/uL (0.8-4.8); Lymphocytes % 1.5 %; Mean Corpuscular HGB Conc 34.1 g/dL (30.0-36.0); Mean Corpuscular Hemoglobin 34.1 pg (28.0-34.0); Mean Platelet Volume 10.5 fL (7.4-10.4); Monocytes # 0.7 10^3/uL (0.2-0.9); Monocytes % 2.8 %; Neutrophils # 22.76 10^3/uL (1.8-7.7); Neutrophils % 91.8 %; Nucleated Red Blood Cells % 0 %; Platelet Count 160 10^3/cmm (130-400); Red Blood Count 4.49 10^6/uL (4.1-5.3); White Blood Count 24.8 10^3/uL (4.0-10.0)
[2020-05-20 10:55] LABS: INR 1.08 (0.8-1.2)
--- NOTE | 2020-05-20 10:58 | CTR_ITS ---
PROCEDURE INFORMATION: Exam: CT Abdomen And Pelvis Without Contrast Exam date and time: 05/20/2020 11:47 AM Age: 69 years old Clinical indication: Abdominal pain; Generalized; Additional info: Abdominal pain, weakness, decreased renal function TECHNIQUE: Imaging protocol: Computed tomography of the abdomen and pelvis without contrast. Radiation optimization: All CT scans at this facility use at least one of these dose optimization techniques: automated exposure control; mA and/or kV adjustment per patient size (includes targeted exams where dose is matched to clinical indication); or iterative reconstruction. COMPARISON: US gall bladder [id number] 03/09/2018 2:51 AM RADIATION DOSE METRICS: Total DLP (mGy-cm): 1469.28 FINDINGS: Liver: No mass. Gallbladder and bile ducts: Cholecystectomy. Pancreas: Normal. No ductal dilation. Spleen: Normal. No splenomegaly. Adrenals: Normal. No mass. Kidneys and ureters: Small bilateral renal calculi, no hydronephrosis of either kidney. Multiple simple cysts, largest approximately 7.5 cm. Small left renal hyperdense lesion estimated at 1 cm consistent with hemorrhagic cyst. Indeterminate partially exophytic right lower pole renal lesion estimated at 4 cm. Stomach and bowel: No acute findings. No obstruction. No mucosal thickening. Appendix: No evidence of appendicitis. Intraperitoneal space: Unremarkable. No free air. No significant fluid collection. Vasculature: No abdominal aortic aneurysm. Lymph nodes: No significant adenopathy. Bladder: Unremarkable as visualized. Reproductive: Prostate enlargement. Bones/joints: Lumbar degenerative change, no acute fracture. Soft tissues: Unremarkable. CT/CT abdomen pelvis wo con [id number] IMPRESSION: Bilateral renal calculi, no hydronephrosis. Indeterminate 4 cm right renal lesion, recommend follow-up multiphasic contrast enhanced CT including delayed images or MRI for further evaluation. Radiation Dose CTDIVOL = (mGy): DLP = 1469.28 (mGy-cm)
[2020-05-20 11:02] LABS: Ketone (Acetest) Serum Negative (Negative)
[2020-05-20 11:17] LABS: Alanine Aminotransferase 36 U/L (0-41); Albumin Level 3.8 g/dL (3.5-5.2); Alkaline Phosphatase 54 IU/L (40-130); Anion Gap 21.2 (5-19); Aspartate Amino Transferase 40 U/L (0-40); Blood Urea Nitrogen 33 mg/dL (8-23); Calcium 9.6 mg/dL (8.5-10.5); Carbon Dioxide 23 mmol/L (22-29); Chloride 90 mmol/L (98-107); Globulin 2.5 g/dL (1.3-4.6); Glucose 149 mg/dL (65-115); Lipase 40 U/L (13-60); Magnesium 1.6 mg/dL (1.7-2.3); Osmolality Calculated 270 mOsm/kg (285-295); Potassium 4.2 mmol/L (3.5-5.1); Sodium 130 mmol/L (136-145); Thyroid Stimulating Hormone 3.05 uIU/mL (0.27-4.20); Total Bilirubin 0.9 mg/dL (0.15-1.2); Total Protein 6.3 g/dL (6.6-8.7)
[2020-05-20 11:18] LABS: Troponin(5th) Baseline 124 ng/L (0-15)
[2020-05-20 11:19] LABS: Creatine Phosphokinase 413 U/L (39-308)
--- NOTE | 2020-05-20 11:58 | PC.NURSE ---
Patient updated on POC, rapid COVID obtained. Patient educated on labs and orders to placed catheter. NO needs address. Transported to CT
[2020-05-20 12:00] LABS: Reflex Lactate Order REFLEX LACTIC ORDERD
--- NOTE | 2020-05-20 12:26 | ECG_ITS ---
[facility] Test Date: 2020-05-20 Pat Name: Jose Cooley Department: Room: Gender: Male Certified Ophthalmic Technician: : 1950 Requested By: Letha Warner Order Number: [id number] Zaragoza MD: Ludy Lopez M.D. Measurements Intervals [place] Rate: 71 P: 51 ME: 162 QRS: 27 QRSD: 143 T: 37 QT: 414 QTc: 450 Interpretive Statements SINUS RHYTHM WITH SINUS ARRHYTHMIA RIGHT BUNDLE BRANCH BLOCK [120+ ms QRS DURATION, UPRIGHT V1, 40+ ms S IN I/aVL/V4/V5/V6] Compared to ECG 05/20/2020 10:49:46 No significant changes Electronically Signed On 05-22-2020 8:33:23 CDT by Ludy Lopez M.D. [id number]
[2020-05-20 12:54] LABS: SARS Covid-2 Antigen Negative (Negative)
[2020-05-20] MEDS: piperacillin-tazobactam 3.375 GM in sodium chloride 0.9% (plus) 50 ML IV (13:02)
[2020-05-20 13:29] LABS: Blood Urine 2+ (Negative); Glucose Urine UA Norm (Normal); Ketones Urine 1+ (Negative); Nitrate Urine Negative (Negative); Protein Urine 3+ (Negative); Urine Appearance Cloudy (CLEAR); Urine Color Yellow (Yellow); pH Urine 5 (5-7)
[2020-05-20 13:30] LABS: Bilirubin Urine 1+ (NEGATIVE); Leukocyte Esterase Urine 2+ (Negative); RBC Urine 15-25 /hpf (0-2); Urobilinogen Urine 1 mg/dL (Negative)
[2020-05-20 13:31] LABS: Add Urine Culture? Yes; Bacteria Urine 2+; Mucus Urine 2+; Squamous Epithelial Cell Urine 0-4 (0-5); WBC Urine TOO NUMEROUS TO CNT /hpf (0-5)
[2020-05-20 13:37] LABS: Lactic Acid level (Lactate) 2.8 mmol/L (0.5-2.2)
[2020-05-20 13:38] LABS: Troponin 5 2HR 82.38 ng/L (0-15)
[2020-05-20] MEDS: sodium chloride 0.9% 1,000 ML 150 ML IV ×3 (13:57→21:12)
[2020-05-20] MEDS: cefTRIAXone 1,000 MG in sodium chloride 0.9% (plus) 50 ML 100 MG IV (13:58)
--- NOTE | 2020-05-20 15:11 | PM.HP ---
Providers/Chief Complaint Admitting Physician: Marly Barr MD Primary Care Provider: Triston Casiano DO Chief Complaint: MCNEAL/D/FEVER RECENT History of Present Illness Jose Cooley is a 69 year old male with PMHx noted below presents with complaints of generally feeling unwell, generalized weakness, dizziness, dysuria, fever/chills since yesterday. He spent some time outside mowing the lawn for approximately 2 hours during which time he felt fine then later in the afternoon started to feel unwell. This continued throughout the night and on checking his temperature he had a fever of 101.8F. He felt quite weak, dizzy particularly when he did attempt to stand up or sit up, had noted dysuria, minimal appetite and has had little in the way of oral intake. As of this morning he has had difficulty urinating. He denies having any cough, chest pain, shortness of breath, sick contacts, rash, recent fall. Prior to the onset of his symptoms he was otherwise in his usual state of health. Denies exposure to any known COVID-19 individuals. Somewhat ill-appearing on his arrival to the ER, noted to be somewhat confused though during my assessment in the ER he was able to give me a good history. Work-up so far shows leukocytosis with a white count of 24.3, hemoglobin of 15.3, hyponatremia with a sodium of 130, BUN of 33, creatinine of 3.7, anion gap of 21.2, lactate of 5.0 with repeat at 2.8, magnesium of 1.6, CPK of 413, elevated troponins with a delta of 41, urinalysis that is indicative of infection, chest x-ray that is unremarkable, rapid COVID-19 test that is negative, CT scan of the abdomen and pelvis showing bilateral renal cysts. Castaneda catheter has been placed due to concern for urinary retention with minimal urine output though this seems to be improving with IV fluid hydration. He is in the process of receiving the 3 L normal saline sepsis bolus. Vital signs seem to be improving particularly blood pressure with hydration. He is currently afebrile. He will require continued IV fluid hydration, close monitoring of hemodynamic status, treatment of UTI with associated sepsis so need for admission. Will admit to ICU for close monitoring. Review of Systems Const: Reports: fever(s), chills, change in appetite (decreased appetite), fatigue and malaise Eyes: Denies: change in vision ENMT: Reports: dry mouth Card: Denies: chest pain, swelling of feet/ankles, lightheadedness or dyspnea on exertion Resp: Denies: dyspnea, productive cough or non-productive cough GI: Denies: abdominal pain, nausea, vomiting, hematemesis or hematochezia : Reports: difficulty urinating and dysuria Musc: Denies: back pain Skin/Breast: Denies: rash Neuro: Reports: weakness in extremities; Denies: numbness in extremities Psych: Denies: anxiety Medications/Allergies Home Medications Medication Instructions Recorded Confirmed Last Taken Type amlodipine 10 mg tablet 10 mg PO DAILY 09/23/19 05/20/20 10/29/19 06:45 History atorvastatin 40 mg tablet 40 mg PO DAILY 09/23/19 05/20/20 10/28/19 History fluticasone propionate 50 1 spray INTRANASAL Q12H 09/23/19 05/20/20 10/28/19 History mcg/actuation nasal spray,suspension hydrochlorothiazide 25 mg tablet 25 mg PO QAM 09/23/19 05/20/20 10/29/19 06:45 History sildenafil 25 mg tablet 25 mg PO ONCE 09/23/19 05/20/20 Unknown History benazepril 20 mg tablet 40 mg PO DAILY tab 12/13/19 05/20/20 Unknown History potassium chloride 10 mEq 10 meq PO DAILY 12/13/19 05/20/20 Unknown History tablet,extended release aspirin 81 mg tablet,delayed 81 mg PO DAILY 02/03/20 05/20/20 Unknown History release cholecalciferol (vitamin D3) 25 1,000 unit PO DAILY #30 cap 03/28/20 05/20/20 Unknown Rx mcg (1,000 unit) capsule omeprazole 40 mg capsule,delayed 40 mg PO DAILY #30 cap 03/28/20 05/20/20 Unknown Rx release diazepam [Valium] 5 mg PO Q6H PRN #20 tab 04/16/20 05/20/20 Unknown Rx prednisone 10 mg PO DAILY 05/20/20 05/20/20 05/19/20 History Allergies Allergy/AdvReac Type Severity Reaction Status Date / Time No Known Allergies Allergy Verified 05/20/20 10:27 PFSH Acute PFSH: Medical History Accelerated essential hypertension Arthritis of both hands Arthritis of both knees Beta-dwain intolerance Chronic steroid use Coronary artery disease Diabetes Elevated PSA r/t acute prostatitis. 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 Polymyalgia rheumatica Surgical History History of coronary artery bypass graft x 3 Hx of appendectomy Hx of cholecystectomy S/P carpal tunnel release Family History Denies family history of Systemic lupus erythematosus, unspecified Rheumatoid arthritis Diabetes Stroke Social History Smoking and tobacco status: former smoker Alcohol intake: current Alcohol intake frequency: 0-2 Drinks per Day Adopted: No Caregiver/support person: No Lives independently: No Household members: spouse Marital status: Current occupational status: retired History of recent travel: No Current gender identity: Male Vitals/I&O/Wt Last Vital Signs Temp 98.3 F 05/20/20 10:22 Pulse 72 05/20/20 14:07 Resp 17 05/20/20 14:07 BP 108/54 05/20/20 13:43 Pulse Ox 97 05/20/20 14:07 05/20/20 05/20/20 05/20/20 06:59 14:59 22:59 Intake Total 1000 / 1000 Balance 1000 / 1000 Weight last 48 hrs Weight 102.058 kg Physical Exam Const: COMMON NORMALS: no acute distress, patient oriented x3 and alert GENERAL APPEARANCE: cooperative, comfortable and ill appearing ORIENTATION/CONSCIOUSNESS: Yes awake OTHER: -Appears somewhat flushed HENMT: COMMON NORMALS: normocephalic, atraumatic and hearing grossly normal bilaterally HEAD & SCALP: normocephalic and atraumatic MOUTH: moist mucous membranes abnormal Details: parched Eye: COMMON NORMALS: Equal, round and reactive pupils present, EOMs intact bilaterally and conjunctivae normal CONJUNCTIVA: Yes conjunctivae normal PUPIL: Yes Equal, round and reactive pupils present Neck/C-Spine: COMMON NORMALS: full ROM GENERAL: Yes normal visual inspection and Yes trachea midline Resp: COMMON NORMALS: normal respiratory effort, No retractions, No use of accessory muscles and clear to auscultation bilaterally EFFORT & INSPECTION: Yes able to speak in complete sentences, Yes symmetric chest movement and No tachypneic AUSCULTATION: clear to auscultation bilaterally Cardio: COMMON NORMALS: regular rate, regular rhythm, S1 normal heart sound present, S2 normal heart sound present and No murmurs present (Cardio) RATE: regular rate RHYTHM: regular rhythm HEART SOUNDS: S1 normal heart sound present and S2 normal heart sound present GI: COMMON NORMALS: Normal to inspection, nondistended, normoactive bowel sounds present and Soft to palpation INSPECTION: Yes central obesity PALPATION: Yes Soft to palpation, Yes Tenderness to palpation present (GI) Details: RLQ, No Guarding due to palpation present (GI) and No Rigid due to palpation : BLADDER/KIDNEY EXAM: Yes catheter in place Extremity: COMMON NORMALS: normal to inspection, full ROM and no clubbing, cyanosis or edema; negative for no pedal edema Neuro: COMMON NORMALS: patient oriented x3, moves all extremities, no focal motor deficits and no sensory deficits noted Psych: COMMON NORMALS: mental status grossly normal, Normal thought process present, cooperative, normal affect and speech normal SPEECH: Yes normal speech THOUGHT PROCESS: Normal thought process present Skin: COMMON NORMALS: no rashes or lesions noted, no jaundice, no petechiae and no mottling GENERAL SKIN EXAM: no rashes or lesions noted Urinary Catheter Management^: Coude: Cath Placed During This Visit: yes Urinary Catheter Date of Insertion: 05/20/20 Urinary Catheter Time of Insertion: 12:55 Sepsis: Is patient septic: Yes Focused sepsis exam performed: Yes Date exam was performed: 05/20/20 Time exam was performed: 15:30 Data : 05/20/20 10:35 05/20/20 10:35 Micro: Microbiology 05/20/20 11:51 Blood Culture - Preliminary Blood SPECIMEN COLLECTED 05/20/20 10:35 Blood Culture - Preliminary Blood SPECIMEN COLLECTED A&P Assessment and plan (1) Sepsis: -Sepsis as indicated by significant leukocytosis, tachypnea, fever, lactic acidosis with evidence of acute renal failure -Received 3 L normal saline bolus in ER per sepsis protocol -Castaneda catheter placed in ER secondary to concern for urinary retention, continue to monitor urine output -UA indicative of infection, patient symptomatic with noted dysuria -f/u urine and blood cx -CXR unremarkable -CT A/P: bilateral renal cysts -received Zosyn, Ceftriaxone, continue ceftriaxone for now -continue IVF hydration -close monitoring of vital signs -also noted diarrhea, order stool studies -received dose of hydrocortisone in ED as is on chronic prednisone therapy -rapid COVID-19 test negative Status: Acute Qualifiers: Acute renal failure type: unspecified Sepsis acute organ dysfunction status: with acute organ dysfunction Sepsis type: sepsis due to unspecified organism Severe sepsis acute organ dysfunction type: acute renal failure Severe sepsis shock status: without septic shock Qualified Code(s): A41.9 - Sepsis, unspecified organism; R65.20 - Severe sepsis without septic shock; N17.9 - Acute kidney failure, unspecified (2) Acute UTI: -UA indicative of infection, patient symptomatic with noted dysuria -f/u urine and blood cx -continue Ceftriaxone Status: Acute (3) Elevation of cardiac enzymes: -noted elevated troponins, trending down, significant delta -likely type II secondary to demand ischemia from acute infection -telemetry monitoring -order Echo, last one done in 2014 showed EF=68%, G1DD, no RWMA, mild IA -no chest pain, RBBB on ECGs -negative nuclear stress testing in 02/2020 Status: Acute (4) Acute renal failure: -renal impairment noted with elevated Cr -continue to monitor renal function -avoid nephrotoxins, renally dose meds -has Castaneda catheter in place, monitor urine output -renal cyts on imaging -IVF hydration -noted CPK elevation-413 -hold diuretics Status: Acute Qualifiers: Acute renal failure type: unspecified Qualified Code(s): N17.9 - Acute kidney failure, unspecified (5) Coronary artery disease: -s/p CABG x 3 -hold ASA, statin -hold amlodipine due to concern for hypotension Status: Chronic Qualifiers: Associated angina: angina presence unspecified Coronary Disease-Associated Artery/Lesion type: [place] artery [place] vs. transplanted heart: [place] heart Qualified Code(s): I25.10 - Atherosclerotic heart disease of [place] coronary artery without angina pectoris Additional A&P Information -Dyslipidemia; hold statin due to CPK elevation -HTN: hold oral antihypertensives to avoid hypotension, monitor vital signs -hx of polymyalgia rheumatica; on oral steroids, f/u with Dr. Marks -hx of OA; pain control as needed -known RUE numbness, pending EMG -Hypomagnesemia; replaced, repeat in AM -Dehydration, noted increased anion gap, hyponatremia: on IVF -cardiac diet as tolerated -GI ppx with PPI -DVT ppx with heparin -Dispo: home -Code status: FULL code -ICU admission due to sepsis, high risk for decompensation Attestations Medical Necessity Statement*: Jose Cooley's hospital stay will require greater than 2 midnights for management of sepsis secondary to complicated UTI, acute renal failure, dehydration, requiring aggressive IV fluid hydration, IV antibiotics and close monitoring of hemodynamic status. Time Spent in Patient Care: Greater than 35 minutes (>than 50% of time spent in counselling and/or direct pt care on unit). Coding Level of Care Code Acute [employer] for Chg Fwd Exam Comprehensive Diagnoses Sepsis A41.9; R65.20; N17.9 Acute renal failure type: unspecified Sepsis acute organ dysfunction status: with acute organ dysfunction Sepsis type: sepsis due to unspecified organism Severe sepsis acute organ dysfunction type: acute renal failure Severe sepsis shock status: without septic shock Acute UTI N39.0 Elevation of cardiac enzymes R74.8 Acute renal failure N17.9 Acute renal failure type: unspecified Coronary artery disease I25.10 Associated angina: angina presence unspecified Coronary Disease-Associated Artery/Lesion type: [place] artery [place] vs. transplanted heart: [place] heart Sepsis Event Note Evaluation Current stage of sepsis: sepsis Possible source: GI tract/intra-abdominal and genitourinary Focused Exam Vital Signs Temp Pulse Pulse Resp BP BP Pulse Ox 05/20/20 18:00 84 20 H 135/70 96 05/20/20 17:00 98.9 F 83 21 H 145/95 97 05/20/20 16:19 91 21 H 91 05/20/20 15:45 77 17 110/81 96 05/20/20 14:07 72 17 97 05/20/20 13:43 76 16 108/54 94 05/20/20 13:07 82 15 111/64 97 05/20/20 10:22 98.3 F 93 18 95/56 98 Respiratory exam: Present CTAB Cardiovascular exam: Present RRR, S1 and S2 Date exam was performed: 05/20/20 Time exam was performed: 20:01 Bedside Monitoring Fluid responsiveness: Fluid Responsive Date bedside monitoring was performed: 05/20/20 Time bedside monitoring was performed: 20:03 Problem List (1) Sepsis: Status: Acute (2) Acute UTI: Status: Acute (3) Elevation of cardiac enzymes: Status: Acute (4) Acute renal failure: Status: Acute (5) Coronary artery disease: Status: Chronic
--- NOTE | 2020-05-20 16:26 | ECG_ITS ---
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 Measurements Intervals [place] Rate: 80 P: 2 ID: [id number] QRS: 34 QRSD: 142 T: 28 QT: 398 QTc: 459 Interpretive Statements SINUS RHYTHM WITH SINUS ARRHYTHMIA POSSIBLE LEFT ATRIAL ENLARGEMENT [-0.1mV P WAVE IN V1/V2] RIGHT BUNDLE BRANCH BLOCK POSSIBLE LATERAL MYOCARDIAL INFARCTION [30 ms Q WAVE IN I/aVL/V5/V6], PROBABLY OLD Compared to ECG 05/20/2020 12:36:58 Myocardial infarct finding now present Electronically Signed On 05-22-2020 8:30:58 CDT by Ludy Lopez M.D. [id number]
[2020-05-20] MEDS: magnesium sulfate premix 2 GM/50 ML PIGGYBACK IV (16:53)
[2020-05-20] MEDS: heparin 5,000 unit/mL INJ 1 mL 5000 UNIT SUBCUT (16:57)
[2020-05-20] MEDS: acetaminophen 325 mg Tablet 650 MG PO (17:46)
[2020-05-21] VITALS (20 sets, daily range): BP systolic 98–160; BP diastolic 48–101; PULSE 55–95; RESP 12–24; TEMP 36.4–37.1; O2SAT 93–100
[2020-05-21] MEDS: heparin 5,000 unit/mL INJ 1 mL 5000 UNIT SUBCUT ×2 (03:52→16:15)
[2020-05-21] MEDS: sodium chloride 0.9% 1,000 ML 150 ML IV ×2 (03:52→09:38)
[2020-05-21 04:45] LABS: Hemoglobin 12.4 g/dL (11.7-16.6); Mean Corpuscular HGB Conc 33.5 g/dL (30.0-36.0); Mean Corpuscular Hemoglobin 33.5 pg (28.0-34.0); Platelet Count 101 10^3/cmm (130-400); Red Cell Distribution Width 13.1 % (12.1-15.1); White Blood Count 18.9 10^3/uL (4.0-10.0)
[2020-05-21 05:06] LABS: Anion Gap 11.9 (5-19); Blood Urea Nitrogen 36 mg/dL (8-23); Calcium 8.5 mg/dL (8.5-10.5); Carbon Dioxide 24 mmol/L (22-29); Chloride 102 mmol/L (98-107); Creatine Phosphokinase 270 U/L (39-308); Glucose 123 mg/dL (65-115); Osmolality Calculated 277 mOsm/kg (285-295); Potassium 3.9 mmol/L (3.5-5.1); Sodium 134 mmol/L (136-145)
[2020-05-21 06:08] LABS: Slide Review Slide Review Perform
[2020-05-21 06:09] LABS: Absolute Eosinophils 0.1 10^3/cmm (0.0-0.7); Absolute Segmented Neutrophil 10.4 10/cmm (1.6-7.1); Band Neutrophils Absolute 6.6 10^3/cmm (0.0-1.2); Eosinophils 1 %; Lymphocytes 3 %; Monocytes Absolute 0.6 10^3/cmm (0.1-0.6); Segmented Neutrophils 55 %; Total Cells Counted 100 (0-100)
[2020-05-21 06:10] LABS: Platelet Estimate Decreased (Normal); Poikilocytosis Trace; Polychromasia Trace
--- NOTE | 2020-05-21 08:33 | P.PN_ITS ---
Subjective Subjective: Interval history: Improved urine output overnight with 1200 mL output, hemodynamic status more stable, afebrile, noted decreasing leukocytosis with white count down to 18.9, stable hemoglobin, mild thrombocytopenia with a platelet count of 101, improved creatinine from 3.7->2.8. CPK down to 270, magnesium normalized, blood culture and stool studies pending though C. diff icile negative. Overall appears better, clear mentation, easier to engage in conversation. Medications: Reviewed: Yes Medication Review Details: Active Medications Generic Name Dose Route Start Last Admin Trade Name Freq PRN Reason Stop Dose Admin Acetaminophen 650 mg 05/20/20 15:05 05/20/20 17:46 Tylenol PO 650 mg Q6H PRN Administration Mild/Mod Pain Or Temp >/= 101 Diazepam 5 mg 05/20/20 15:41 Valium PO Q6H PRN muscle spasm Fluticasone Propio randolph 1 spray 05/21/20 09:00 Flonase INTRANASAL Q12H JOVI Heparin Sodium (Be ef Lung) 5,000 unit 05/20/20 16:00 05/21/20 03:52 Heparin SUBCUT 5,000 unit Q12H JOVI Administration Ceftriaxone Sodium 1,000 mg/ 50 mls @ 100 mls/ hr 05/21/20 13:00 Sodium Chloride IV Q24H JOVI Protocol Sodium Chloride 1,000 mls @ 150 m ls/hr 05/20/20 15:41 05/21/20 03:52 Sodium Chloride 0.9% IV 150 mls/hr .Q6H40M JOVI Administration Morphine Sulfate 2 mg 05/20/20 15:41 Morphine IVP Q4H PRN SEVERE PAIN Ondansetron HCl 4 mg 05/20/20 15:05 Zofran IVP Q6H PRN NAUSEA AND VOMITI NG Pantoprazole Sodiu m 40 mg 05/21/20 09:00 Protonix PO DAILY JOVI Vitamin D 1,000 unit 05/21/20 09:00 Vitamin D3 PO DAILY [facility] No Known Allergies Allergy (Verified 05/20/20 10:27) Vitals/I&O/Wt Last Vital Signs Temp 97.6 F 05/21/20 04:00 Pulse 60 05/21/20 06:00 Resp 19 H 05/21/20 06:00 BP 129/69 05/21/20 06:00 Pulse Ox 99 05/21/20 06:00 05/20/20 05/21/20 05/21/20 22:59 06:59 14:59 Intake Total 3540 / 4540 1000 / 5540 Output Total 575 / 575 1200 / 1775 Balance 2965 / 3965 -200 / 3765 Weight last 48 hrs Weight 102.058 kg Physical Exam Const: COMMON NORMALS: no acute distress, patient oriented x3 and alert GENERAL APPEARANCE: cooperative and comfortable ORIENTATION/CONSCIOUSNESS: Yes awake HENMT: COMMON NORMALS: normocephalic, atraumatic and hearing grossly normal bilaterally HEAD & SCALP: normocephalic and atraumatic MOUTH: moist mucous membranes abnormal Details: parched Eye: COMMON NORMALS: Equal, round and reactive pupils present, EOMs intact bilaterally and conjunctivae normal CONJUNCTIVA: Yes conjunctivae normal PUPIL: Yes Equal, round and reactive pupils present Neck/C-Spine: COMMON NORMALS: full ROM GENERAL: Yes normal visual inspection and Yes trachea midline Resp: COMMON NORMALS: normal respiratory effort, No retractions, No use of accessory muscles and clear to auscultation bilaterally EFFORT & INSPECTION: Yes able to speak in complete sentences, Yes symmetric chest movement and No ta chypneic AUSCULTATION: clear to auscultation bilaterally Cardio: COMMON NORMALS: regular rate, regular rhythm, S1 normal heart sound present, S2 normal heart sound present and No murmurs present (Cardio) RATE: regular rate RHYTHM: regular rhythm HEART SOUNDS: S1 normal heart sound present and S2 normal heart sound present GI: COMMON NORMALS: Normal to inspection, nondistended, normoactive bowel sounds present and Soft to palpation INSPECTION: Yes central obesity PALPATION: Yes Soft to palpation, No Guarding due to palpation present (GI) and No Rigid due to palpation : BLADDER/KIDNEY EXAM: Yes catheter in place Extremity: COMMON NORMALS: normal to inspection, full ROM and no clubbing, cyanosis or edema; negative for no pedal edema Neuro: COMMON NORMALS: patient oriented x3, moves all extremities, no focal motor deficits and no sensory deficits noted SENSORIUM/ORIENTATION: Yes alert Psych: COMMON NORMALS: mental status grossly normal, Normal thought process present, cooperative, normal affect and speech normal SPEECH: Yes normal speech THOUGHT PROCESS: Normal thought process present Skin: COMMON NORMALS: no rashes or lesions noted, no jaundice, no petechiae and no mottling GENERAL SKIN EXAM: no rashes or lesions noted Urinary Catheter Management^: Coude: Cath Placed During This Visit: yes Reason for Continuing Indwelling Catheter: Accurate Measurement of Urinary Output in Critically Ill Patients Urinary Catheter Date of Insertion: 05/20/20 Urinary Catheter Time of Insertion: 12:55 Data : 05/21/20 04:26 05/21/20 04:26 Micro: Microbiology 05/20/20 20:35 C.difficile Toxin B Gene (PCR) - Final Stool Routine Collection 05/20/20 11:51 Blood Culture - Preliminary Blood SPECIMEN COLLECTED 05/20/20 10:35 Blood Culture - Preliminary Blood SPECIMEN COLLECTED A&P Assessment and plan (1) Sepsis: -Sepsis as indicated by significant leukocytosis, tachypnea, fever, lactic acidosis with evidence of acute renal failure -Received 3 L normal saline bolus in ER per sepsis protocol -Castaneda catheter placed in ER secondary to concern for urinary retention, continue to monitor urine output, improving output with hydration -UA indicative of infection, patient symptomatic with noted dysuria -urine cx: GNRs, pending ID & sensitivity -blood cx: 1/4 bottles positive for GNRs, repeat set ordered -CXR unremarkable -CT A/P: bilateral renal cysts -continue ceftriaxone for now -continue IVF hydration; decrease with improved oral intake -close monitoring of vital signs -also noted diarrhea, stool studies pending, C.difficile negative -received dose of hydrocortisone in ED as is on chronic prednisone therapy; resume oral steroids -rapid COVID-19 test negative Status: Acute Qualifiers: Acute renal failure type: unspecified Sepsis acute organ dysfunction status: with acute organ dysfunction Sepsis type: sepsis due to unspecified organism Severe sepsis acute organ dysfunction type: acute renal failure Severe sepsis shock status: without septic shock Qualified Code(s): A41.9 - Sepsis, unspecified organism; R65.20 - Severe sepsis without septic shock; N17.9 - Acute kidney failure, unspecified (2) Acute UTI: -UA indicative of infection, patient symptomatic with noted dysuria -urine cx: GNRs, pending ID & sensitivity -blood cx: 1/4 bottles positive for GNRs, repeat set ordered -continue Ceftriaxone Status: Acute (3) Elevation of cardiac enzymes: -noted elevated troponins, trending down, significant delta -likely type II secondary to demand ischemia from acute infection -telemetry monitoring -Echo pending, last one done in 2014 showed EF=68%, G1DD, no RWMA, mild IA -no chest pain, RBBB on ECGs -negative nuclear stress testing in 02/2020 Status: Acute (4) Acute renal failure: -renal impairment noted with elevated Cr -continue to monitor renal function; improving with hydration -avoid nephrotoxins, renally dose meds -has Castaneda catheter in place, continue to monitor urine output -renal cyts on imaging -IVF hydration -noted CPK elevation-413 now normalized (270) -continue to hold diuretics, ACEi Status: Acute Qualifiers: Acute renal failure type: unspecified Qualified Code(s): N17.9 - Acute kidney failure, unspecified (5) Coronary artery disease: -s/p CABG x 3 -continue to hold ASA, resume statin -resume amlodipine Status: Chronic Qualifiers: Associated angina: angina presence unspecified Coronary Disease- Associated Artery/Lesion type: [place] artery [place] vs. transplanted heart: [place] heart Qualified Code(s): I25.10 - Atherosclerotic heart disease of [place] coronary artery without angina pectoris Additional A&P Information -Dyslipidemia; resume statin, CPK normalized -HTN: resume amlodipine, continue to hold ACEi due to renal impairment, continue to monitor vital signs -hx of polymyalgia rheumatica; on oral steroids, f/u with Dr. Marks -hx of OA; pain control as needed -known RUE numbness, pending EMG -Hypomagnesemia; replaced, normalized -Dehydration, noted increased anion gap, hyponatremia: on IVF. Improving fluid status and hyponatremia, AG closed -cardiac diet as tolerated -GI ppx with PPI -DVT ppx with heparin -Dispo: home -Code status: FULL code -transfer to floor for continued care Attestations Medical Necessity Statement*: Patient requires hospitalization for continued treatment of complicated UTI with associated sepsis, on IV antibiotics pending culture results, continued hemodynamic status monitoring, continued management of acute renal impairment. Time Spent in Patient Care: 16 - 35 minutes (>than 50% of time spent in counselling and/or direct pt care on unit) . Coding Level of Care Code Acute V[employer] for g Fwd Exam Comprehensive Diagnoses Sepsis A41.9; R65.20; N17.9 Acute renal failure type: unspecified Sepsis acute organ dysfunction status: with acute organ dysfunction Sepsis type: sepsis due to unspecified organism Severe sepsis acute organ dysfunction type: acute renal failure Severe sepsis shock status: without septic shock Acute UTI N39.0 Elevation of cardiac enzymes R74.8 Acute renal failure N17.9 Acute renal failure type: unspecified Coronary artery disease I25.10 Associated angina: angina presence unspecified Coronary Disease-Associated Artery/Lesion type: [place] artery [place] vs. transplanted heart: [place] heart
[2020-05-21] MEDS: fluticasone nasal spray 16gm Btl 1 SPRAY INTRANASAL ×2 (09:37→21:51)
[2020-05-21] MEDS: acetaminophen 325 mg Tablet 650 MG PO ×2 (09:38→16:30)
[2020-05-21] MEDS: cholecalciferol (vitamin D3) 1,000 unit Tablet 1000 UNIT PO (09:38)
[2020-05-21] MEDS: pantoprazole DR 40 mg Tablet PO (09:38)
[2020-05-21] MEDS: predniSONE 10 mg Tablet PO (09:41)
[2020-05-21] MEDS: amlodipine 10 mg Tablet PO (09:41)
--- NOTE | 2020-05-21 09:56 | PC.CHAP ---
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 [] Patient/Family/Request visit [] Outpatient visit [] Follow-up visit [] Physician referral [] Code/Alert [] Routine visit [] Staff referral [] Actively dying [] Patient sleeping [] Family support [] [] Out of room [] Palliative care [] [xx] Receiving care in room [] Pre-surgical visit [] Trauma [] Long length of stay [] ICU visit [] Other: Relational/Emotional Strength [] Patient feels connected with others/family/visitors/staff [] Distress [] Loneliness/isolation [] Abandonment Spirituality of Patient [] Person of Rosalinda [] Attends Druze of their Rosalinda [] Believes in Prayer [] Reads Bible or Denominational materials [] There are Spiritual issues to be addressed Reinforcing Bar Setter Interventions [] Prayer [] Active listening [] Non-anxious presence [] Spiritual/emotional support [] Crisis/trauma care [] Spiritual counseling [] Bereavement support [] Provided bereavement packet [] Provided Bible/devotional materials [] Provided toy/stuffed animal, coloring book to patient or family member [] Provided Communion [] Anointing/[place] [] Salvation [] Completed spiritual assessment [] Other: Impact on Illness or Injury [] Angry [] Fearful [] Anxious [] Often cries [] Exhaustion [] Unable to work [] Unable to attend mu-ism [] Unable to walk/stand [] Unable to read [] Unable to drive [] Unable to eat/drink [] Unable to sleep [] Unable to be with family [] Patient intubated [] Other: Summary Time spent with patient
[2020-05-21] MEDS: cefTRIAXone 1,000 MG in sodium chloride 0.9% (plus) 50 ML 100 MG IV (12:10)
[2020-05-21] MEDS: sodium chloride 0.9% 1,000 ML 100 ML IV (17:47)
[2020-05-21] MEDS: artificial tears Op Soln 15 mL Btl 1 DROP EYE-BOTH (17:47)
--- NOTE | 2020-05-21 18:21 | PC.NURSE ---
PATIENT CHEERFUL AND COOPERATIVE. MORENO DRAINING WELL WITH 2500 OUT THIS SHIFT. PATIENT ATE BETTER WITH AT BEDSIDE. ORAL CARE AND WIPE DOWN PERFORMED DURING SHIFT. FAMILY AWARE OF LABS AND HIS CREATININE BEING ELEVATED STILL. DID WILL WITH PT, 2 LAPS OF UNIT.
--- NOTE | 2020-05-21 19:47 | USCV_ITS ---
Jose Cooley Age: 69 Gender: M : 1950 Exam Date: 05/21/2020 08:38 Ordering Phys: Marly Barr MD Technologist: Rosa Carson Exam Location: [facility] – [place] Indication: NSTEMI BP: 129 / 69 HR: 71 Rhythm: Sinus Technical Quality: Fair MEASUREMENTS (Male / Female) Normal Values 2D ECHO LV Diastolic Diameter PLAX 5.0 cm 4.2 - 5.9 / 3.9 - 5.3 cm LV Systolic Diameter PLAX 3.6 cm LV Chamber Size 3.7 cm IVS Diastolic Thickness 1.2 cm 0.6 - 1.0 / 0.6 - 0.9 cm IVS Systolic Thickness 1.9 cm LVPW Diastolic Thickness 1.1 cm 0.6 - 1.0 / 0.6 - 0.9 cm LVPW Systolic Thickness 1.5 cm RV Chamber Size 2.9 cm LVOT Diameter 2.1 cm LV Ejection Fraction 2D Teich 53.5 % LA Diameter 5.2 cm LA Width 3.0 cm LA Height 5.5 cm RA Width 2.9 cm RA Height 5.0 cm Aorta at Sinotubular Diameter 2.2 cm M-MODE LV Diastolic Diameter MM 5.3 cm 4.2 - 5.9 / 3.9 - 5.3 cm LV Systolic Diameter MM 2.9 cm LV Ejection Fraction MM Teich 76.3 % IVS Diastolic Thickness MM 1.5 cm 0.6 - 1.0 / 0.6 - 0.9 cm IVS Systolic Thickness MM 2.4 cm LVPW Diastolic Thickness MM 1.2 cm 0.6 - 1.0 / 0.6 - 0.9 cm LVPW Systolic Thickness MM 2.0 cm RV Diastolic Diameter MM 4.2 cm Aortic Annulus Diameter 3.7 cm LA Ao Ratio MM 1.4 MV E Point Septal Separation 0.6 cm DOPPLER AV Peak Velocity 110.0 cm/s LVOT Peak Velocity 98.0 cm/s AV Area Cont Eq vti 3.1 cm squared AV Area Cont Eq pk 3.1 cm squared MV Area PHT 3.5 cm squared Mitral E to A Ratio 1.8 MV E' Velocity 20.0 cm/s Mitral E to MV E' Ratio 7.3 Mitral E to LV E' Lateral Ratio 5.3 Mitral E to LV E' Septal Ratio 11.5 TR Peak Velocity 223.0 cm/s TR Peak Gradient 19.9 mmHg TV Peak E Velocity 60.0 cm/s Right Atrial Pressure 3.0 mmHg Pulmonary Artery Systolic Pressu 22.9 mmHg PV Peak Velocity 81.0 cm/s RV Acceleration Time 0.1 s RV Ejection Time 0.3 s RV AcT/ET 0.4 FINDINGS Left Ventricle Normal left ventricular cavity size. Normal left ventricular systolic function. Left ventricular ejection fraction is estimated at 60-65 %. Although no diagnostic regional wall motion abnormality could be identified, this possibility cannot be completely excluded based on the study. Abnormal septal motion consistent with conduction abnormality. Right Ventricle Right ventricle not well visualized. Right Atrium Normal right atrial size. Right atrial pressure estimated at 3 mmHg. Left Atrium Probably upper normal left atrial size. Mitral Valve Mildly thickened mitral valve. Trace mitral valve regurgitation. Aortic Valve Mildly thickened trileaflet aortic valve. No aortic valve stenosis. No aortic valve regurgitation. Tricuspid Valve Structurally normal tricuspid valve. Trace to mild tricuspid valve regurgitation. Pulmonic Valve Structurally normal pulmonic valve. No pulmonary valve stenosis. Moderate pulmonary valve regurgitation. Pericardium No pericardial effusion. Aorta Normal size aortic root and proximal ascending aorta. Normal- sized inferior vena cava. CONCLUSIONS 1. This is a technically difficult study. 2. Normal left ventricular cavity size and systolic function. Left ventricular ejection fraction is estimated at 60-65 %. Although no diagnostic regional wall motion abnormality could be identified, this possibility cannot be completely excluded based on the study. 3. Right atrial pressure estimated at 3 mmHg. 4. Moderate pulmonary valve regurgitation. 5. When compared to previous echocardiogram report dated 03/29/2015, there may not have been any significant change. Frequent ectopy noted throughout the study. Ludy Lopez MD (Electronically Signed) Final Date: 21 May 2020 15:56 S
[2020-05-21] MEDS: atorvastatin 40 mg Tablet PO (21:50)
[2020-05-22] VITALS (7 sets, daily range): BP systolic 128–170; BP diastolic 68–93; PULSE 55–72; RESP 16–19; TEMP 36.3–37.1; O2SAT 93–100
[2020-05-22] MEDS: morphine 4 mg/mL SDV 1 mL 2 MG IVP (01:28)
[2020-05-22] MEDS: heparin 5,000 unit/mL INJ 1 mL 5000 UNIT SUBCUT ×2 (04:43→16:01)
[2020-05-22] MEDS: sodium chloride 0.9% 1,000 ML 100 ML IV (04:43)
[2020-05-22 05:38] LABS: Basophils % 0.1 %; Eosinophils % 0.2 %; Hematocrit 37.2 % (42.0-52.0); Hemoglobin 12.9 g/dL (11.7-16.6); Lymphocytes # 0.3 10^3/uL (0.8-4.8); Lymphocytes % 2.2 %; Mean Corpuscular HGB Conc 34.7 g/dL (30.0-36.0); Mean Corpuscular Hemoglobin 33.8 pg (28.0-34.0); Mean Corpuscular Volume 97.4 fL (80-94); Mean Platelet Volume 11.4 fL (7.4-10.4); Monocytes # 0.5 10^3/uL (0.2-0.9); Monocytes % 3.5 %; Neutrophils # 13.77 10^3/uL (1.8-7.7); Neutrophils % 90.5 %; Nucleated Red Blood Cells % 0 %; Platelet Count 105 10^3/cmm (130-400); Red Blood Count 3.82 10^6/uL (4.1-5.3); Red Cell Distribution Width 12.8 % (12.1-15.1); White Blood Count 15.2 10^3/uL (4.0-10.0)
[2020-05-22 05:59] LABS: Alanine Aminotransferase 29 U/L (0-41); Albumin Level 3.2 g/dL (3.5-5.2); Alkaline Phosphatase 63 IU/L (40-130); Anion Gap 11.4 (5-19); Aspartate Amino Transferase 34 U/L (0-40); Blood Urea Nitrogen 27 mg/dL (8-23); Calcium 9.3 mg/dL (8.5-10.5); Carbon Dioxide 24 mmol/L (22-29); Chloride 101 mmol/L (98-107); Globulin 2.7 g/dL (1.3-4.6); Glucose 131 mg/dL (65-115); Osmolality Calculated 275 mOsm/kg (285-295); Potassium 3.4 mmol/L (3.5-5.1); Sodium 133 mmol/L (136-145); Total Bilirubin 0.3 mg/dL (0.15-1.2); Total Protein 5.9 g/dL (6.6-8.7)
[2020-05-22] MEDS: predniSONE 10 mg Tablet PO (08:19)
[2020-05-22] MEDS: amlodipine 10 mg Tablet PO (08:20)
[2020-05-22] MEDS: fluticasone nasal spray 16gm Btl 1 SPRAY INTRANASAL ×2 (08:20→20:45)
[2020-05-22] MEDS: pantoprazole DR 40 mg Tablet PO (08:20)
[2020-05-22] MEDS: cholecalciferol (vitamin D3) 1,000 unit Tablet 1000 UNIT PO (08:20)
[2020-05-22] MEDS: cefTRIAXone 1,000 MG in sodium chloride 0.9% (plus) 50 ML 100 MG IV (12:17)
--- NOTE | 2020-05-22 18:08 | PM.PN ---
Subjective Subjective: Interval history: No acute event overnight.He has remained aferbrile and hemodynamically stable.WBC Trending down so is Serum creatinine.Passed voiding trail and sarabia catheter has been removed.I.V Fluids discontinued and patient has been encouraged to take po intake.stool studies No Shigella/E.coli (EIEC) DNA Detected.No Shiga Toxin I/II Genes Detected. No Campylobacter DNA Detected.No Salmonella DNA Detected. Clostridioides Difficile PCR No Clostridioides difficile toxin B gene DNA detected. Urine culture:E.Coli:Sensitive to ceftriaxone. Vitals/I&O/Wt Last Vital Signs Temp 97.4 F L 05/22/20 15:40 Pulse 72 05/22/20 15:40 Resp 16 05/22/20 15:40 BP 170/93 05/22/20 15:40 Pulse Ox 100 05/22/20 15:40 05/22/20 05/22/20 05/22/20 06:59 14:59 22:59 Intake Total 1000 / 4115 930 / 930 400 / 1330 Output Total 1900 / 4400 1800 / 1800 600 / 2400 Balance -900 / -285 -870 / -870 -200 / -1070 Physical Exam Const: COMMON NORMALS: patient oriented x3 HENMT: COMMON NORMALS: normocephalic, atraumatic, hearing grossly normal bilaterally and external ears normal HEAD & SCALP: normocephalic and atraumatic EXTERNAL EAR: Yes external ears normal Eye: COMMON NORMALS: no scleral icterus GENERAL EYE: appearance normal, both eyes and all related structures Chest: COMMONS NORMALS: normal inspection of the chest and normal palpation of entire chest wall CHEST: Yes Symmetrical chest wall rise Resp: COMMON NORMALS: normal respiratory effort, No retractions, No use of accessory muscles and clear to auscultation bilaterally EFFORT & INSPECTION: Yes symmetric chest movement AUSCULTATION: clear to auscultation bilaterally Cardio: COMMON NORMALS: regular rate, regular rhythm, S1 normal heart sound present, S2 normal heart sound present, No gallops present (Cardio), No murmurs present (Cardio), No rub (Cardio) and Peripheral pulses 2+ throughout RATE: regular rate RHYTHM: regular rhythm HEART SOUNDS: S1 normal heart sound present and S2 normal heart sound present PERIPHERAL PULSES: Peripheral pulses 2+ throughout GI: COMMON NORMALS: Normal to inspection, nondistended, normoactive bowel sounds present, Soft to palpation, non-tender, No hepatosplenomegaly present and no masses AUSCULTATION: Yes normoactive bowel sounds PALPATION: Yes Soft to palpation and Yes No hepatosplenomegaly present RECTAL EXAM: Yes deferred : COMMON NORMALS: Yes no CVA tenderness BLADDER/KIDNEY EXAM: Yes no CVA tenderness Back/Pelvis: COMMON NORMALS: no CVA tenderness Extremity: COMMON NORMALS: no clubbing, cyanosis or edema and no pedal edema Neuro: COMMON NORMALS: patient oriented x3 Urinary Catheter Management^: Coude: Cath Placed During This Visit: yes, but has since been removed by the nurse Reason for Continuing Indwelling Catheter: Decision to DC Catheter Urinary Catheter Date of Insertion: 05/20/20 Urinary Catheter Time of Insertion: 12:55 Date Urinary Catheter Removed: 05/22/20 Time Urinary Catheter Discontinued: 12:29 Data : 05/22/20 04:58 05/22/20 04:58 Micro: Microbiology 05/21/20 12:03 Blood Culture - Preliminary Blood NEGATIVE TO DATE 05/21/20 11:58 Blood Culture - Preliminary Blood NEGATIVE TO DATE 05/20/20 12:55 Urine Culture - Final Urine,Clean Catch Escherichia coli A&P Assessment and plan (1) Sepsis: Sepsis as indicated by significant leukocytosis, tachypnea, fever, lactic acidosis with evidence of acute renal failure -Received 3 L normal saline bolus in ER per sepsis protocol -Sarabia catheter placed in ER secondary to concern for urinary retention, continue to monitor urine output, improving output with hydration -UA indicative of infection, patient symptomatic with noted dysuria -urine cx: Urine culture:E.Coli:Sensitive to ceftriaxone -blood cx: 09/18 bottles positive for GNRs, repeat set ordered -CXR unremarkable -CT A/P: bilateral renal cysts -continue ceftriaxone for now -close monitoring of vital signs -also noted diarrhea, stool studies pending, C.difficile negative -received dose of hydrocortisone in ED as is on chronic prednisone therapy; resume oral steroids -rapid COVID-19 test negative Status: Acute Qualifiers: Acute renal failure type: unspecified Sepsis acute organ dysfunction status: with acute organ dysfunction Sepsis type: sepsis due to unspecified organism Severe sepsis acute organ dysfunction type: acute renal failure Severe sepsis shock status: without septic shock Qualified Code(s): A41.9 - Sepsis, unspecified organism; R65.20 - Severe sepsis without septic shock; N17.9 - Acute kidney failure, unspecified (2) Acute UTI: Currently on I.V Ceftriaxone. Urine culture:E.Coli:Sensitive to ceftriaxone. -blood cx: 09/18 bottles positive for GNRs, repeat set ordered -continue Ceftriaxone Status: Acute (3) Elevation of cardiac enzymes: Elevation of cardiac enzymes: noted elevated troponins, trending down, significant delta -likely type II secondary to demand ischemia from acute infection -telemetry monitoring -Echo :Normal left ventricular cavity size and systolic function. Left ventricular ejection fraction is estimated at 60-65 %. Although no diagnostic regional wall motion abnormality could be identified, this possibility cannot be completely excluded based on the study.. Right atrial pressure estimated at 3 mmHg. Moderate pulmonary valve regurgitation. -no chest pain, RBBB on ECGs -negative nuclear stress testing in 02/2020 Status: Acute (4) Acute renal failure: Acute renal failure: -renal impairment noted with elevated Cr -continue to monitor renal function; improving with hydration -avoid nephrotoxins, renally dose meds -continue to hold diuretics, ACEi Status: Acute Qualifiers: Acute renal failure type: unspecified Qualified Code(s): N17.9 - Acute kidney failure, unspecified (5) History of coronary artery bypass graft x 3: No acute Intervention Status: Acute Additional A&P Information -HTN: resume amlodipine, continue to hold ACEi due to renal impairment, continue to monitor vital signs -hx of polymyalgia rheumatica; on oral steroids, f/u with Dr. Marks -hx of OA; pain control as needed -known RUE numbness, pending EMG Attestations Medical Necessity Statement*: needs hospital stay for continued sepsis and ARF management. 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
[2020-05-22] MEDS: atorvastatin 40 mg Tablet PO (20:46)
[2020-05-23] VITALS (7 sets, daily range): BP systolic 148–189; BP diastolic 71–97; PULSE 58–64; RESP 16–19; TEMP 36.6–36.9; O2SAT 95–98
[2020-05-23] MEDS: heparin 5,000 unit/mL INJ 1 mL 5000 UNIT SUBCUT ×2 (04:25→15:22)
[2020-05-23 05:09] LABS: Basophils % 0.2 %; Eosinophils % 0.3 %; Hemoglobin 12.3 g/dL (11.7-16.6); Lymphocytes # 0.5 10^3/uL (0.8-4.8); Lymphocytes % 4.3 %; Mean Corpuscular HGB Conc 34.2 g/dL (30.0-36.0); Mean Corpuscular Hemoglobin 33.3 pg (28.0-34.0); Mean Corpuscular Volume 97.6 fL (80-94); Mean Platelet Volume 11.2 fL (7.4-10.4); Monocytes # 0.5 10^3/uL (0.2-0.9); Monocytes % 4.6 %; Neutrophils # 10.26 10^3/uL (1.8-7.7); Neutrophils % 89.9 %; Nucleated Red Blood Cells % 0 %; Platelet Count 109 10^3/cmm (130-400); Red Blood Count 3.69 10^6/uL (4.1-5.3); Red Cell Distribution Width 12.7 % (12.1-15.1); White Blood Count 11.4 10^3/uL (4.0-10.0)
[2020-05-23 05:28] LABS: Anion Gap 11.3 (5-19); Blood Urea Nitrogen 21 mg/dL (8-23); Calcium 9.4 mg/dL (8.5-10.5); Carbon Dioxide 25 mmol/L (22-29); Chloride 103 mmol/L (98-107); Glucose 115 mg/dL (65-115); Osmolality Calculated 280 mOsm/kg (285-295); Potassium 3.3 mmol/L (3.5-5.1); Sodium 136 mmol/L (136-145)
[2020-05-23] MEDS: pantoprazole DR 40 mg Tablet PO (08:25)
[2020-05-23] MEDS: cholecalciferol (vitamin D3) 1,000 unit Tablet 1000 UNIT PO (08:25)
[2020-05-23] MEDS: predniSONE 10 mg Tablet PO (08:25)
[2020-05-23] MEDS: amlodipine 10 mg Tablet PO (08:25)
--- NOTE | 2020-05-23 09:20 | PC.SOCIAL ---
IMM Update Pg. 2 of IMM updated and copy provided to patient.
--- NOTE | 2020-05-23 11:05 | PM.PN ---
Subjective Subjective: Interval history: No acute event overnight.He has remained aferbrile and hemodynamically stable.WBC Trending down so is Serum creatinine.Passed voiding trail and sarabia catheter has been removed.I.V Fluids discontinued and patient has been encouraged to take po intake.stool studies No Shigella/E.coli (EIEC) DNA Detected.No Shiga Toxin I/II Genes Detected. No Campylobacter DNA Detected.No Salmonella DNA Detected. Clostridioides Difficile PCR No Clostridioides difficile toxin B gene DNA detected. Urine culture:E.Coli:Sensitive to ceftriaxone. Medications: Reviewed: Yes Medication Review Details: Active Medications Generic Name Dose Route Start Last Admin Trade Name Freq PRN Reason Stop Dose Admin Acetaminophen 650 mg 05/20/20 15:05 05/20/20 17:46 Tylenol PO 650 mg Q6H PRN Administration Mild/Mod Pain Or Temp >/= 101 Diazepam 5 mg 05/20/20 15:41 Valium PO Q6H PRN muscle spasm Fluticasone Propio randolph 1 spray 05/21/20 09:00 Flonase INTRANASAL Q12H [facility] Heparin Sodium (Be ef Lung) 5,000 unit 05/20/20 16:00 05/21/20 03:52 Heparin SUBCUT 5,000 unit Q12H JOVI Administration Ceftriaxone Sodium 1,000 mg/ 50 mls @ 100 mls/ hr 05/21/20 13:00 Sodium Chloride IV Q24H JOVI Protocol Sodium Chloride 1,000 mls @ 150 m ls/hr 05/20/20 15:41 05/21/20 03:52 Sodium Chloride 0.9% IV 150 mls/hr .Q6H40M JOVI Administration Morphine Sulfate 2 mg 05/20/20 15:41 Morphine IVP Q4H PRN SEVERE PAIN Ondansetron HCl 4 mg 05/20/20 15:05 Zofran IVP Q6H PRN NAUSEA AND VOMITI NG Pantoprazole Sodiu m 40 mg 05/21/20 09:00 Protonix PO DAILY [facility] Vitamin D 1,000 unit 05/21/20 09:00 Vitamin D3 PO DAILY [facility] No Known Allergies Allergy (Verified 05/20/20 10:27) Vitals/I&O/Wt Last Vital Signs Temp 97.8 F 05/23/20 07:23 Pulse 62 05/23/20 07:23 Resp 18 05/23/20 07:23 BP 189/92 05/23/20 07:23 Pulse Ox 98 05/23/20 07:23 05/22/20 05/23/20 05/23/20 22:59 06:59 14:59 Intake Total 800 / 1730 Output Total 600 / 2400 1350 / 3750 Balance 200 / -670 -1350 / -2020 Physical Exam Const: COMMON NORMALS: patient oriented x3 HENMT: COMMON NORMALS: normocephalic, atraumatic, hearing grossly normal bilaterally and external ears normal HEAD & SCALP: normocephalic and atraumatic EXTERNAL EAR: Yes external ears normal Eye: COMMON NORMALS: no scleral icterus GENERAL EYE: appearance normal, both eyes and all related structures Chest: COMMONS NORMALS: normal inspection of the chest and normal palpation of entire chest wall CHEST: Yes Symmetrical chest wall rise Resp: COMMON NORMALS: normal respiratory effort, No retractions, No use of accessory muscles and clear to auscultation bilaterally EFFORT & INSPECTION: Yes symmetric chest movement AUSCULTATION: clear to auscultation bilaterally Cardio: COMMON NORMALS: regular rate, regular rhythm, S1 normal heart sound present, S2 normal heart sound present, No gallops present (Cardio), No murmurs present (Cardio), No rub (Cardio) and Peripheral pulses 2+ throughout RATE: regular rate RHYTHM: regular rhythm HEART SOUNDS: S1 normal heart sound present and S2 normal heart sound present PERIPHERAL PULSES: Peripheral pulses 2+ throughout GI: COMMON NORMALS: Normal to inspection, nondistended, normoactive bowel sounds present, Soft to palpation, non-tender, No hepatosplenomegaly present and no masses AUSCULTATION: Yes normoactive bowel sounds PALPATION: Yes Soft to palpation and Yes No hepatosplenomegaly present RECTAL EXAM: Yes deferred : COMMON NORMALS: Yes no CVA tenderness BLADDER/KIDNEY EXAM: Yes no CVA tenderness Back/Pelvis: COMMON NORMALS: no CVA tenderness Extremity: COMMON NORMALS: no clubbing, cyanosis or edema and no pedal edema Neuro: COMMON NORMALS: patient oriented x3 Urinary Catheter Management^: Coude: Cath Placed During This Visit: yes, but has since been removed by the nurse Reason for Continuing Indwelling Catheter: Decision to DC Catheter Urinary Catheter Date of Insertion: 05/20/20 Urinary Catheter Time of Insertion: 12:55 Date Urinary Catheter Removed: 05/22/20 Time Urinary Catheter Discontinued: 12:29 Data : 05/23/20 04:20 05/23/20 04:20 Micro: Microbiology 05/21/20 12:03 Blood Culture - Preliminary Blood NEGATIVE TO DATE 05/21/20 11:58 Blood Culture - Preliminary Blood NEGATIVE TO DATE 05/20/20 12:55 Urine Culture - Final Urine,Clean Catch Escherichia coli A&P Assessment and plan (1) Sepsis: Sepsis as indicated by significant leukocytosis, tachypnea, fever, lactic acidosis with evidence of acute renal failure -Received 3 L normal saline bolus in ER per sepsis protocol. -UA indicative of infection, patient was symptomatic with noted dysuria -urine cx: Urine culture:E.Coli:Sensitive to ceftriaxone -blood cx: 09/18 bottles positive for GNRs.Repeat Blood culture no growth so far. -CXR unremarkable -CT A/P: bilateral renal cysts -continue ceftriaxone for now -close monitoring of vital signs -also noted diarrhea, stool studies pending, C.difficile negative -received dose of hydrocortisone in ED as is on chronic prednisone therapy; resume oral steroids -rapid COVID-19 test negative Status: Acute Qualifiers: Acute renal failure type: unspecified Sepsis acute organ dysfunction status: with acute organ dysfunction Sepsis type: sepsis due to unspecified organism Severe sepsis acute organ dysfunction type: acute renal failure Severe sepsis shock status: without septic shock Qualified Code(s): A41.9 - Sepsis, unspecified organism; R65.20 - Severe sepsis without septic shock; N17.9 - Acute kidney failure, unspecified (2) Acute UTI: Currently on I.V Ceftriaxone. Urine culture:E.Coli:Sensitive to ceftriaxone Status: Acute (3) Elevation of cardiac enzymes: Elevation of cardiac enzymes: noted elevated troponins, trending down, significant delta -likely type II secondary to demand ischemia from acute infection -telemetry monitoring -Echo :Normal left ventricular cavity size and systolic function. Left ventricular ejection fraction is estimated at 60-65 %. Although no diagnostic regional wall motion abnormality could be identified, this possibility cannot be completely excluded based on the study.. Right atrial pressure estimated at 3 mmHg. Moderate pulmonary valve regurgitation. -no chest pain, RBBB on ECGs -negative nuclear stress testing in 02/2020 Status: Acute (4) Acute renal failure: Acute renal failure: -renal impairment noted with elevated Cr.Currently SCR has trended down to baseline. -continue to monitor renal function; improving with hydration -avoid nephrotoxins, renally dose meds -continue to hold diuretics, ACEi Status: Acute Qualifiers: Acute renal failure type: unspecified Qualified Code(s): N17.9 - Acute kidney failure, unspecified (5) History of coronary artery bypass graft x 3: No acute Intervention Status: Acute Additional A&P Information -HTN: resume amlodipine, continue to hold ACEi due to renal impairment, continue to monitor vital signs -hx of polymyalgia rheumatica; on oral steroids, f/u with Dr. Marks -hx of OA; pain control as needed -known RUE numbness, pending EMG Attestations Medical Necessity Statement*: Patient need management of Sepsis 2/2 to UTI. 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
[2020-05-23] MEDS: lisinopril 20 mg Tablet 40 MG PO (13:08)
[2020-05-23] MEDS: cefTRIAXone 1,000 MG in sodium chloride 0.9% (plus) 50 ML 100 MG IV (13:24)
[2020-05-23] MEDS: sodium chloride 0.9% 1,000 ML 100 ML IV (18:32)
[2020-05-23] MEDS: fluticasone nasal spray 16gm Btl 1 SPRAY INTRANASAL (20:23)
[2020-05-23] MEDS: atorvastatin 40 mg Tablet PO (20:24)
[2020-05-23] MEDS: acetaminophen 325 mg Tablet 650 MG PO (20:34)
[2020-05-23] MEDS: hydroCHLOROthiazide 25 mg Tablet PO (20:38)
[2020-05-24] VITALS: BP 160/81; PULSE 76; RESP 18; TEMP 37.1; O2SAT 96
[2020-05-24 04:00] VITALS: BP 166/82; PULSE 58; RESP 18; TEMP 36.5; O2SAT 97
[2020-05-24] MEDS: sodium chloride 0.9% 1,000 ML 100 ML IV (04:37)
[2020-05-24] MEDS: heparin 5,000 unit/mL INJ 1 mL 5000 UNIT SUBCUT (04:37)
[2020-05-24 06:00] LABS: Basophils % 0.3 %; Eosinophils # 0.1 10^3/uL (0.0-0.8); Eosinophils % 0.8 %; Hematocrit 41.5 % (42.0-52.0); Hemoglobin 14.2 g/dL (11.7-16.6); Mean Corpuscular HGB Conc 34.2 g/dL (30.0-36.0); Mean Corpuscular Hemoglobin 33.3 pg (28.0-34.0); Mean Corpuscular Volume 97.4 fL (80-94); Mean Platelet Volume 11.2 fL (7.4-10.4); Neutrophils % 77.7 %; Nucleated Red Blood Cells % 0 %; Platelet Count 146 10^3/cmm (130-400); Red Blood Count 4.26 10^6/uL (4.1-5.3); Red Cell Distribution Width 12.6 % (12.1-15.1); White Blood Count 10.1 10^3/uL (4.0-10.0)
[2020-05-24 06:30] LABS: Blood Urea Nitrogen 17 mg/dL (8-23); Calcium 9.8 mg/dL (8.5-10.5); Carbon Dioxide 27 mmol/L (22-29); Chloride 100 mmol/L (98-107); Glucose 94 mg/dL (65-115); Osmolality Calculated 282 mOsm/kg (285-295); Sodium 138 mmol/L (136-145)
[2020-05-24 08:00] VITALS: BP 136/80; PULSE 78; RESP 16; TEMP 36.6; O2SAT 97
[2020-05-24] MEDS: fluticasone nasal spray 16gm Btl 1 SPRAY INTRANASAL (08:08)
[2020-05-24] MEDS: amlodipine 10 mg Tablet PO (08:08)
[2020-05-24] MEDS: hydroCHLOROthiazide 25 mg Tablet PO (08:08)
[2020-05-24] MEDS: lisinopril 20 mg Tablet 40 MG PO (08:08)
[2020-05-24] MEDS: pantoprazole DR 40 mg Tablet PO (08:08)
[2020-05-24] MEDS: predniSONE 10 mg Tablet PO (08:08)
[2020-05-24] MEDS: cholecalciferol (vitamin D3) 1,000 unit Tablet 1000 UNIT PO (08:08)
[2020-05-24 08:44] VITALS: PULSE 74; O2SAT 94
--- NOTE | 2020-05-24 10:18 | P.DS_ITS ---
Discharge Providers Date of Admission: 05/20/20 14:15 Date of Discharge: May 24, 2020 Attending Provider at Admission: Marly Barr MD Attending Provider at Discharge: Alexandr Dumont MD Primary Care Provider: Triston Casiano DO Diagnoses at Discharge Discharge Diagnosis (1) Sepsis: Status: Acute Problem details: 1/4 bottles E. coli. Repeat blood culture 05/21-. Discharged on 10 days of antibiotics to complete 14 days total treatment from negative culture. Qualifiers: Acute renal failure type: unspecified Sepsis acute organ dysfunction status: with acute organ dysfunction Sepsis type: sepsis due to unspecified organism Severe sepsis acute organ dysfunction type: acute renal failure Severe sepsis shock status: without septic shock Qualified Code(s): A41.9 - Sepsis, unspecified organism; R65.20 - Severe sepsis without septic shock; N17.9 - Acute kidney failure, unspecified (2) Acute UTI: Status: Acute Problem details: E. coli, pansensitive (3) Elevation of cardiac enzymes: Status: Acute (4) Acute renal failure: Status: Acute Problem details: Resolved Qualifiers: Acute renal failure type: unspecified Qualified Code(s): N17.9 - Acute kidney failure, unspecified (5) History of coronary artery bypass graft x 3: Status: Acute Reason for Visit Reason for Visit: MCNEAL/D/FEVER RECENT Hospital Course Hospital Course: Is a 69-year-old white male who presented to the hospital with generalized weakness, fever. He is found of UTI. Blood culture ultimately demonstrated 1/4 bottles E. coli consistent with his urine infection of E. coli. During his hospital stay he received Rocephin. Repeat blood cultures were negative drawn from May 21 at discharge. He had been afebrile for greater than 48 hours. Secondary to UTI and bacteremia he will be discharged on Flomax as well. Mild decrease in potassium was noted at discharge and supplemented. Physical Exam Narrative: EXAM NARRATIVE: General exam no apparent distress Cardiovascular regular in rhythm without murmur, occasional premature beat Lungs clear Abdomen is soft with positive bowel sounds Extremities no cyanosis clubbing or edema Urinary Catheter Management^: Coude: Cath Placed During This Visit: yes, but has since been removed by the nurse Reason for Continuing Indwelling Catheter: Decision to DC Catheter Urinary Catheter Date of Insertion: 05/20/20 Urinary Catheter Time of Insertion: 12:55 Date Urinary Catheter Removed: 05/22/20 Time Urinary Catheter Discontinued: 12:29 Discharge Data Data Completed and Pending: Completed Studies During Hospitalization Category Date Time Status CT abdomen pelvis wo con [id number] Stat Cat Scan 05/20/20 10:58 Completed XR chest 1V elizabeth ble [id number] Stat Exams 05/20/20 10:25 Completed CV echo complete* [id number] Routine Ultrasound 05/21/20 19:47 Completed Pending at discharge Category Date Time Status BMP [Basic Metabo lic Panel] AM LABS Lab 05/25/20 04:00 Ordered Blood Culture Sta t Lab 05/20/20 11:51 Results Blood Culture Sta t Lab 05/21/20 11:58 Results CBC Auto Diff [Co mplete Blood Count w/Auto] AM LABS Lab 05/25/20 04:00 Ordered Labs from last 24 hours 05/24/20 05/24/20 04:49 04:49 WBC 10.1 H RBC 4.26 Hgb 14.2 Hct 41.5 L MCV 97.4 H MCH 33.3 MCHC 34.2 RDW 12.6 Plt Count 146 MPV 11.2 H Neut % (Auto) 77.7 Lymph % (Auto) 10.0 Atkinson % (Auto) 10.0 Eos % (Auto) 0.8 Baso % (Auto) 0.3 Neut # (Auto) 7.80 H Lymph # (Auto) 1.0 Atkinson # (Auto) 1.0 H Eos # (Auto) 0.1 Baso # (Auto) 0.0 Nucleated RBC % (a uto) 0 Nucleated RBCs # 0.0 Sodium 138 Potassium 3.0 L Chloride 100 Carbon Dioxide 27 Anion Gap 14.0 BUN 17 Creatinine 1.0 GFR Calculation Not Reportable Glucose 94 Calculated Osmolal ity 282 L Calcium 9.8 Vitals: Last Vital Signs Temp 97.8 F 05/24/20 08:00 Pulse 74 05/24/20 08:44 Resp 16 05/24/20 08:00 BP 136/80 05/24/20 08:00 Pulse Ox 94 05/24/20 08:44 Discharge Plan Discharge Patient Disposition: Home Condition: Stable Prescriptions: New cefdinir 300 mg capsule 300 mg PO BID 10 Days Qty: 20 RF: 0 Flomax 0.4 mg capsule 0.4 mg PO DAILY Qty: 30 RF: 0 Continued aspirin [Aspir-81] 81 mg tablet,delayed release (DR/EC) 81 mg PO DAILY RF: 0 potassium chloride 10 mEq tablet extended release 10 meq PO DAILY RF: 0 benazepril 20 mg tablet 40 mg PO DAILY RF: 0 amlodipine 10 mg tablet 10 mg PO DAILY RF: 0 atorvastatin [Lipitor] 40 mg tablet 40 mg PO DAILY RF: 0 fluticasone propionate 50 mcg/actuation spray,suspension 1 spray INTRANASAL Q12H RF: 0 hydrochlorothiazide 25 mg tablet 25 mg PO QAM RF: 0 cholecalciferol (vitamin D3) 25 mcg (1,000 unit) capsule 1,000 unit PO DAILY Qty: 30 RF: 3 omeprazole 40 mg capsule,delayed release(DR/EC) 40 mg PO DAILY Qty: 30 RF: 3 diazepam [Valium] 5 mg tablet 5 mg PO Q6H PRN (Reason: muscle spasm) Qty: 20 RF: 0 prednisone 2.5 mg tablet 10 mg PO DAILY RF: 0 Discontinued sildenafil [Viagra] 25 mg tablet 25 mg PO ONCE RF: 0 Discharge Orders: Discharge Order (Routine); Ordered 05/24/20 Ordered By: Alexandr Dumont Referrals: Asim Vines MD [Physician] - 7-10 days (Dr. Vines's office will call back with appt.) Triston Casiano DO [Primary Care Provider] - 4-7 days Discharge Diet: Cardiac Discharge Activity: Increase activity as tolerated Activity Restrictions/Additional Instructions: Take all medicine as prescribed Follow-up with your primary care provider in neurology Return for any concerns. Discharge Attestations Time Spent in Discharge Care*: greater than 30 min Quality Metrics Clinical Quality Measures During this hospital stay, did patient experience: None Coding Level of Care Code Acute Tester Waste Disposal Leakage for g Fwd Diagnoses Sepsis A41.9; R65.20; N17.9 Acute renal failure type: unspecified Sepsis acute organ dysfunction status: with acute organ dysfunction Sepsis type: sepsis due to unspecified organism Severe sepsis acute organ dysfunction type: acute renal failure Severe sepsis shock status: without septic shock Acute UTI N39.0 Elevation of cardiac enzymes R74.8 Acute renal failure N17.9 Acute renal failure type: unspecified History of coronary artery bypass graft x 3 Z95.1
[2020-05-24 11:02] VITALS: BP 143/83; PULSE 94; RESP 18; TEMP 36.9; O2SAT 95
[2020-05-24] MEDS: potassium chloride ER 10 mEq Tablet 40 MEQ PO (11:07)
[2020-05-24 12:36] VITALS: BP 143/83; PULSE 94; RESP 18; TEMP 36.9; O2SAT 95
--- NOTE | 2020-05-24 12:37 | PC.NURSE ---
Reviewed patient's discharge with patient including follow up doctor appointments and medications which were brought to patient by [facility]. Patient verbalized understanding of discharge instructions and medications. IV removed intact. Patient is A&Ox3. Respirations even and non-labored on room air. Patient wheel chaired to private car.
== END 2020-05-24 12:30 | disposition home or self-care (01) | DRG 872 ==
LOC: ER 14:23 → ICU 14:35 → MEDSURG 05-21 18:40
PROVIDERS: Emergency Medicine; Internal Medicine; Admitting Provider Family Medicine; PCP Family Medicine; Visit Provider Internal Medicine
DX: A41.9 Sepsis, unspecified organism (principal); N39.0 Urinary tract infection, site not specified; E87.2 Acidosis; N17.9 Acute kidney failure, unspecified; I24.8 Other forms of acute ischemic heart disease; E87.1 Hypo-osmolality and hyponatremia; R65.20 Severe sepsis without septic shock; I10 Essential (primary) hypertension; M19.042 Primary osteoarthritis, left hand; M19.041 Primary osteoarthritis, right hand; M17.0 Bilateral primary osteoarthritis of knee; Z79.52 Long term (current) use of systemic steroids; I25.10 Atherosclerotic heart disease of native coronary artery without angina pectoris; E11.9 Type 2 diabetes mellitus without complications; E78.00 Pure hypercholesterolemia, unspecified; Z79.899 Other long term (current) drug therapy; M35.3 Polymyalgia rheumatica; Z95.1 Presence of aortocoronary bypass graft; Z87.891 Personal history of nicotine dependence; E78.5 Hyperlipidemia, unspecified; E83.42 Hypomagnesemia; Z79.82 Long term (current) use of aspirin; I37.1 Nonrheumatic pulmonary valve insufficiency; B96.20 Unspecified Escherichia coli [E. coli] as the cause of diseases classified elsewhere; D69.6 Thrombocytopenia, unspecified; E86.0 Dehydration
CPT/HCPCS: 12345; 36415; 51702; 71045; 74176; 80048; 80053; 81001; 82009; 82550; 83605; 83690; 83735; 84443; 84484; 85007; 85025; 85610; 87040; 87077; 87086; 87186; 87205; 87426; 87493; 87506; 93005; 93306; 96372; 96375; 97161; 97530; 99284; J0696; J1644; J1720; J2270; J2405; J2543; J3475; J7030; J7512

== ENCOUNTER → 2020-06-01 08:18 | Outpatient (BNVA) | payer MEDICARE, OTHER, SELFPAY | PROVIDERS: PCP Family Medicine; Visit Provider Nurse Practitioner Family | DX: N39.0 Urinary tract infection, site not specified (principal) | CPT/HCPCS: 81001 ==

== ENCOUNTER → 2020-06-05 14:59 | Outpatient (BNVA) | payer MEDICARE, OTHER, SELFPAY | PROVIDERS: PCP Family Medicine; Visit Provider Internal Medicine Rheumatology | DX: M35.3 Polymyalgia rheumatica (principal); Z79.899 Other long term (current) drug therapy; M17.11 Unilateral primary osteoarthritis, right knee; G56.02 Carpal tunnel syndrome, left upper limb; Z79.52 Long term (current) use of systemic steroids | CPT/HCPCS: 99214 ==

== ENCOUNTER → 2020-06-19 14:47 | Outpatient (BNVA) | payer MEDICARE, OTHER, SELFPAY | PROVIDERS: PCP Family Medicine; Visit Provider Urology | DX: N39.0 Urinary tract infection, site not specified (principal) | CPT/HCPCS: 80053; 81001 ==

== ENCOUNTER 2020-07-17 12:00 | Outpatient (CLI) | payer MEDICARE, OTHER, SELFPAY | END 2020-07-17 12:01 | disposition home or self-care (01) | LOC: SLEEP 07-20 08:54 | PROVIDERS: PCP Family Medicine; Visit Provider Family Medicine | DX: G47.33 Obstructive sleep apnea (adult) (pediatric) (principal); R53.83 Other fatigue; R42 Dizziness and giddiness | CPT/HCPCS: G0399 ==

== ENCOUNTER → 2020-07-24 09:05 | Outpatient (BNVA) | payer MEDICARE, OTHER, SELFPAY | PROVIDERS: PCP Family Medicine; Visit Provider Urology | DX: R97.20 Elevated prostate specific antigen [PSA] (principal); N40.1 Benign prostatic hyperplasia with lower urinary tract symptoms; N52.9 Male erectile dysfunction, unspecified | CPT/HCPCS: 81003; 84153 ==

== ENCOUNTER → 2020-08-07 09:46 | Outpatient (BNVA) | payer MEDICARE, OTHER, SELFPAY | PROVIDERS: PCP Family Medicine; Referring Provider Specialist; Visit Provider Specialist | DX: R20.0 Anesthesia of skin (principal); R20.2 Paresthesia of skin; G56.01 Carpal tunnel syndrome, right upper limb; Z87.891 Personal history of nicotine dependence | CPT/HCPCS: 95885; 95908; G0463 ==

== ENCOUNTER → 2020-08-29 13:50 | Outpatient (BNVA) | payer MEDICARE, OTHER, SELFPAY | PROVIDERS: PCP Family Medicine; Visit Provider Internal Medicine Rheumatology | DX: Z79.899 Other long term (current) drug therapy (principal) | CPT/HCPCS: 36415; 80076; 82565; 85025; 85651; 86140 ==

== ENCOUNTER → 2020-08-31 10:16 | Outpatient (BNVA) | payer MEDICARE, OTHER, SELFPAY | PROVIDERS: PCP Family Medicine; Visit Provider Nurse Practitioner Family | DX: N39.0 Urinary tract infection, site not specified (principal) | CPT/HCPCS: 81003; 87086 ==

== ENCOUNTER → 2020-09-17 12:17 | Outpatient (BNVA) | payer MEDICARE, OTHER, SELFPAY | PROVIDERS: PCP Family Medicine; Visit Provider Specialist | DX: Z20.828 Contact with and (suspected) exposure to other viral communicable diseases (principal); G56.01 Carpal tunnel syndrome, right upper limb | CPT/HCPCS: 87635 ==

== ENCOUNTER → 2020-09-18 14:07 | Outpatient (BNVA) | payer MEDICARE, OTHER, SELFPAY | PROVIDERS: PCP Family Medicine; Visit Provider Internal Medicine Rheumatology | DX: M35.3 Polymyalgia rheumatica (principal); Z79.899 Other long term (current) drug therapy; Z79.52 Long term (current) use of systemic steroids; M15.9 Polyosteoarthritis, unspecified; G56.01 Carpal tunnel syndrome, right upper limb; Z87.891 Personal history of nicotine dependence | CPT/HCPCS: 99214 ==

== ENCOUNTER 2020-09-22 06:44 | Day surgery (SDC) | payer MEDICARE, OTHER, SELFPAY ==
[2020-09-21 13:47] VITALS: BMI 28.7
--- NOTE | 2020-09-22 06:57 | W.PM.OPSUD ---
Surgery/Procedure H&P Update DATE OF PROCEDURE: September 22, 2020 DATE H&P PERFORMED: 08/30/20 H&P UPDATE INFORMATION: I have reviewed H&P completed within last 30 days, I have examined patient prior to procedure, Changes to prior documentation as noted here (Increase in Methotrexate dose) and H&P is in [facility] E[facility] on date indicated PREOP DIAGNOSIS: Right carpal tunnel syndrome PLANNED PROCEDURE: Operation Date: 09/22/20 08:20 Proposed Procedures p Carpal Tunnel Release 22164 G56.01(Right) - Catie Pritchett MD Related Problem List Diagnoses (1) Right carpal tunnel syndrome:
--- NOTE | 2020-09-22 07:11 | ECG_ITS ---
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 Measurements Intervals [place] Rate: 67 P: 40 MD: 170 QRS: 8 QRSD: 156 T: 9 QT: 450 QTc: 475 Interpretive Statements SINUS RHYTHM WITH OCCASIONAL SUPRAVENTRICULAR PREMATURE COMPLEXES RIGHT BUNDLE BRANCH BLOCK [120+ ms QRS DURATION, UPRIGHT V1, 40+ ms S IN I/aVL/V4/V5/V6] Compared to ECG 05/20/2020 16:30:02 Sinus arrhythmia no longer present Myocardial infarct finding no longer present Electronically Signed On 09-22-2020 17:21:36 TIME STUDY OBSERVER by Tariq Tao M.D. [email or web address] care [email or web address]-[id number]
[2020-09-22 07:15] VITALS: BP 179/97; PULSE 72; RESP 18; TEMP 36.4; O2SAT 98
--- NOTE | 2020-09-22 07:28 | ANES.PREANE2 ---
Pre-Anesthetic Assessment Pre-Anesthetic Assessment: Height/Weight: Height 1.91 m Weight 104.326 kg Temp Pulse Resp BP Pulse Ox 97.5 F L 72 18 179/97 98 09/22/20 07:15 09/22/20 07:15 09/22/20 07:15 09/22/20 07:15 09/22/20 07:15 Preop Diagnosis: Right carpal tunnel syndrome Proposed Procedure: Operation Date: 09/22/20 08:20 Proposed Procedures p Carpal Tunnel Release 18944 G56.01(Right) - Catie Pritchett MD Familial anesthetic complications: None Was Beta Donna taken within 24 hours: N/A Last intake: Intake Last Liquid Date 09/21/20 Last Liquid Time 19:00 Last Solid Date 09/21/20 Last Solid Time 19:00 Social: Social History: Alcohol and No tobacco Comment: 6 oz whiskey daily Exam: Pre-Anes Outpt Exam: alert, oriented x 3, clear to auscultation bilaterally and regular rate & rhythm Additional Exam Findings (including area of procedure): sinus arrhthmia Airway: MP: 3 Dentition: Other (missing) Additional comments: casanova CV/HEM: CV/HEM: CAD and HTN Comments: s/p CABG Sees cardiology, negative stress test 6 months ago Excellent functional status, very active, golf water aerobics Metabolic: Metabolic: Hyperlipidemia Anesthetic Plan: ASA status: 3 Anesthesia: MAC and Regional (specify below) Risk of > 500 ml blood loss (7ml/kg in children): No PFSH Anesthesia PFSH: Medical History (Updated 09/18/20 @ 15:21 by Ayad Marks MD) Accelerated essential hypertension Arthritis of both hands Arthritis of both knees Beta-donna intolerance BPH loc w urin obs/LUTS Chronic steroid use Coronary artery disease Diabetes Elevated PSA r/t acute prostatitis. 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 Polymyalgia rheumatica Surgical History History of coronary artery bypass graft x 3 Hx of appendectomy Hx of cholecystectomy S/P carpal tunnel release Family History Denies family history of Systemic lupus erythematosus, unspecified Rheumatoid arthritis Diabetes Stroke Social History Smoking and tobacco status: former smoker Alcohol intake: current Alcohol intake frequency: 0-2 Drinks per Day Adopted: No Caregiver/support person: No Lives independently: No Household members: spouse Marital status: Current occupational status: retired History of recent travel: No Current gender identity: Male Data Anesthesia Cardiac Studies: No Data to Display
[2020-09-22] MEDS: CELEcoxib 200 mg Capsule 400 MG PO (07:41)
[2020-09-22] MEDS: sodium chloride 0.9% 1,000 ML 30 ML IV (07:58)
--- NOTE | 2020-09-22 09:32 | ANE.PACU2 ---
Inpatient post-anesthesia follow up: Airway intact: Yes Vital signs: Temperature 97.5 F Pulse Rate 72 Respiratory Rate 18 Blood Pressure 179/97 Pulse Oximetry 98 Oxygen Delivery Me thod Room Air Oxygen Flow Rate Fraction of Inspir ed Oxygen Hydration adequate: Yes Nausea and vomiting: No Pain level: 1 Mental status: Baseline
[2020-09-22 09:36] VITALS: BP 124/64; PULSE 57; RESP 18; TEMP 36.4; O2SAT 98
[2020-09-22 09:56] VITALS: BP 118/66; PULSE 52; RESP 18; O2SAT 96
--- NOTE | 2020-09-22 09:58 | P.OP_ITS ---
Operative Report Date of procedure: September 22, 2020 Pre-op Diagnosis: Right carpal tunnel syndrome Post-op diagnosis: same Procedure Done: Right carpal tunnel release Implants: None Pathology: none sent Surgeon: Catie Pritchett Research Test Engine Evaluator: [facility] OR technicians Anesthesia: MAC (With Stefani block) Estimated blood loss (mL): 10 Tourniquet time (min): 36 Tourniquet time: At 250 mmHg IV fluids (mL): 250 Urine output (mL): 0 Urine output: No Castaneda Complications: None Condition: stable Disposition: same day (Then discharge to home) Brief History: This 70-year-old man presented with complaints of severe right carpal tunnel symptoms. He was unresponsive to conservative measures and wished to proceed with surgical intervention. Risks and complications were discussed with him. The surgical procedure was scheduled and questions were answered. Consents were signed. Procedure: The patient was brought to the operating theater. The patient had a Stefani block with MAC. The tourniquet was elevated to 250 mmHg for a total tourniquet time of 26 minutes. The patient was also given Ancef 2 g preoperatively. The arm was then prepped and draped with DuraPrep in usual fashion with the arm draped free. A surgical pause was performed. At the time, the surgical pause, we confirmed the site and side of surgery. We also confirmed the patient's identity, appropriate and timely administration of preoperative antibiotics and preoperative surgical markings. An incision was then made along the thenar crease. The incision crossed the wrist joint in a curvilinear fashion. Dissection continued through skin and soft tissues using a scalpel. The palmaris longus was identified along with the transverse carpal ligament. Each of these was released carefully to avoid injury to the median nerve. We were able to dissect gently into the carpal canal which was noted to be quite tight with significant compression across the median nerve. The nerve was visualized and was an hourglass shape. The canal was subsequently palpated to assure there was no bony encroachment upon the canal. There was a quite thickened fibrous tissue within the canal which was adherent to the nerve, and this was opened longitudinally as well. The canal was then palpated distally and proximally to assure that my small finger was passed easily without impingement. Finding this to be so, attention was directed to closure. The wound was irrigated with ropivacaine plain. It was then closed with 3-0 nylon in an interrupted mattress fashion. Sterile dressing was then placed consisting of Xeroform gauze, fluffed fluffs, sterile soft roll, a volar splint, and an Michael wrap. The tourniquet was released after 36 minutes. There were no complications. There were no specimens. The procedure was well tolerated. Plan is the patient will be discharged home. Associated Problem List Diagnoses (1) Right carpal tunnel syndrome:
[2020-09-22 10:05] VITALS: BP 136/87; PULSE 50; RESP 18; TEMP 36.7; O2SAT 98
== END 2020-09-22 10:22 | disposition home or self-care (01) ==
PROVIDERS: PCP Family Medicine; Visit Provider Specialist
PROC: (CPT 64721; principal; 2020-09-22 08:10)
DX: G56.01 Carpal tunnel syndrome, right upper limb (principal); I25.10 Atherosclerotic heart disease of native coronary artery without angina pectoris; I10 Essential (primary) hypertension; Z95.1 Presence of aortocoronary bypass graft; E78.5 Hyperlipidemia, unspecified; N40.1 Benign prostatic hyperplasia with lower urinary tract symptoms; N13.8 Other obstructive and reflux uropathy; E11.9 Type 2 diabetes mellitus without complications; Z87.891 Personal history of nicotine dependence
CPT/HCPCS: 64721; 12345; 93005; 96365; J0131; J0690; J2704; J3010; J3490; J7030

== ENCOUNTER 2020-10-11 11:51 | Outpatient (RCR) | payer MEDICARE, OTHER, SELFPAY | END 2020-10-15 23:59 | disposition home or self-care (01) | LOC: SOT 11:51 | PROVIDERS: PCP Family Medicine; Referring Provider Specialist; Visit Provider Specialist | DX: Z47.89 Encounter for other orthopedic aftercare (principal) | CPT/HCPCS: 97166 ==

== ENCOUNTER 2020-10-16 06:00 | Outpatient (RCR) | payer MEDICARE, OTHER, SELFPAY | END 2020-11-12 23:59 | disposition home or self-care (01) | LOC: SOT 06:00 | PROVIDERS: PCP Family Medicine; Referring Provider Specialist; Visit Provider Specialist | DX: Z47.89 Encounter for other orthopedic aftercare (principal) | CPT/HCPCS: 73030; 97018; 97035; 97110 ==

== ENCOUNTER 2020-10-18 06:00 | Outpatient (RCR) | payer MEDICARE, OTHER, SELFPAY | END 2020-11-12 23:59 | disposition home or self-care (01) | LOC: SPT 06:00 | PROVIDERS: PCP Family Medicine; Referring Provider Specialist; Visit Provider Specialist | DX: M19.012 Primary osteoarthritis, left shoulder (principal) | CPT/HCPCS: 97110; 97161 ==

== ENCOUNTER → 2020-10-26 07:56 | Outpatient (BNVA) | payer MEDICARE, OTHER, SELFPAY | PROVIDERS: PCP Family Medicine; Visit Provider Urology | DX: N40.1 Benign prostatic hyperplasia with lower urinary tract symptoms (principal); R97.20 Elevated prostate specific antigen [PSA]; N52.1 Erectile dysfunction due to diseases classified elsewhere; I25.10 Atherosclerotic heart disease of native coronary artery without angina pectoris | CPT/HCPCS: 81003 ==

== ENCOUNTER 2020-11-13 06:00 | Outpatient (RCR) | payer MEDICARE, OTHER, SELFPAY | END 2020-12-13 23:59 | disposition home or self-care (01) | LOC: SPT 06:00 | PROVIDERS: PCP Family Medicine; Referring Provider Specialist; Visit Provider Specialist | DX: M25.512 Pain in left shoulder (principal) | CPT/HCPCS: 97110 ==

== ENCOUNTER 2020-11-13 06:00 | Outpatient (RCR) | payer MEDICARE, OTHER, SELFPAY | END 2020-12-13 23:59 | disposition home or self-care (01) | LOC: SOT 06:00 | PROVIDERS: PCP Family Medicine; Referring Provider Specialist; Visit Provider Specialist | DX: M19.012 Primary osteoarthritis, left shoulder (principal) | CPT/HCPCS: 97018; 97035; 97110; 97140; 97530; L3924 ==

== ENCOUNTER → 2020-11-27 13:58 | Outpatient (BNVA) | payer MEDICARE, OTHER, SELFPAY | PROVIDERS: PCP Family Medicine; Visit Provider Specialist | DX: M19.012 Primary osteoarthritis, left shoulder (principal) | CPT/HCPCS: 73030 ==

== ENCOUNTER 2020-12-14 06:00 | Outpatient (RCR) | payer MEDICARE, OTHER, SELFPAY | END 2021-01-12 23:59 | disposition home or self-care (01) | LOC: SPT 06:00 | PROVIDERS: PCP Family Medicine; Referring Provider Specialist; Visit Provider Specialist | DX: M25.512 Pain in left shoulder (principal) | CPT/HCPCS: 97110 ==

== ENCOUNTER 2021-01-13 06:00 | Outpatient (RCR) | payer MEDICARE, OTHER, SELFPAY | END 2021-02-12 23:59 | disposition home or self-care (01) | LOC: SPT 06:00 | PROVIDERS: PCP Family Medicine; Referring Provider Specialist; Visit Provider Specialist | DX: M25.512 Pain in left shoulder (principal) | CPT/HCPCS: 97110 ==

== ENCOUNTER 2021-01-29 16:19 | Outpatient (CLI) | payer MEDICARE, OTHER, SELFPAY | END 2021-01-29 16:20 | disposition home or self-care (01) | LOC: SPT 16:20 | PROVIDERS: PCP Family Medicine; Visit Provider Specialist | DX: Z46.89 Encounter for fitting and adjustment of other specified devices (principal); M17.11 Unilateral primary osteoarthritis, right knee | CPT/HCPCS: 97760; L1812 ==

== ENCOUNTER → 2021-02-08 08:01 | Outpatient (BNVA) | payer MEDICARE, OTHER, SELFPAY | PROVIDERS: PCP Family Medicine; Visit Provider Urology | DX: N40.1 Benign prostatic hyperplasia with lower urinary tract symptoms (principal); N52.9 Male erectile dysfunction, unspecified; N52.1 Erectile dysfunction due to diseases classified elsewhere; R97.20 Elevated prostate specific antigen [PSA] | CPT/HCPCS: 81003 ==

== ENCOUNTER → 2021-05-14 09:17 | Outpatient (BNVA) | payer MEDICARE, OTHER, SELFPAY | PROVIDERS: PCP Family Medicine; Visit Provider Urology | DX: R97.20 Elevated prostate specific antigen [PSA] (principal); N40.1 Benign prostatic hyperplasia with lower urinary tract symptoms; N20.1 Calculus of ureter | CPT/HCPCS: 81003; 84153 ==

== ENCOUNTER → 2021-07-03 15:20 | Outpatient (BNVA) | payer MEDICARE, OTHER, SELFPAY | PROVIDERS: PCP Family Medicine; Visit Provider Nurse Practitioner Family | DX: Z20.822 Contact with and (suspected) exposure to COVID-19 (principal); J06.9 Acute upper respiratory infection, unspecified | CPT/HCPCS: 87635 ==

== ENCOUNTER 2021-10-02 08:42 | Outpatient (CLI) | payer MEDICARE, OTHER, SELFPAY ==
--- NOTE | 2021-10-02 09:04 | XR_ITS ---
WS: [id number] SCREENING DEXA SCAN [employer] CLINICAL INFORMATION: CHRONIC STEROID USE COMPARISON: None. FINDINGS: The L1-L4 bone mineral density measures 2.021 g/cm2. This corresponds to a T score score of 6.7 and Z score of 6.5. Left femoral neck bone mineral density measures 1.320 g/cm2. This corresponds to a T score of 1.5 and Z score of 1.9. Right femoral neck bone mineral density measures 1.356 g/cm2. This corresponds to a T score 1.8of and Z score of 2.1. Mean femoral neck bone mineral density measures 1.338 g/cm2. This corresponds to a T score of 1.6 and Z score of 2.0. XR/XR DEXA axial skeleton* [id number] IMPRESSION: Normal bone mineralization. Patient's FRAX calculated 10 year probability for major osteoporotic fracture i s 7.2 % and osteoporotic hip fracture is 1.8%.
== END 2021-10-02 08:43 | disposition home or self-care (01) ==
PROVIDERS: PCP Family Medicine; Visit Provider Family Medicine
DX: Z79.52 Long term (current) use of systemic steroids (principal); Z01.89 Encounter for other specified special examinations
CPT/HCPCS: 77080

== ENCOUNTER 2021-12-18 06:00 | Outpatient (RCR) | payer MEDICARE, OTHER, SELFPAY | END 2022-01-11 15:24 | disposition home or self-care (01) | LOC: SPT 06:00 | PROVIDERS: PCP Family Medicine; Referring Provider Registered Nurse; Visit Provider Registered Nurse | DX: M47.812 Spondylosis without myelopathy or radiculopathy, cervical region (principal) | CPT/HCPCS: 97110; 97140; 97161 ==

== ENCOUNTER → 2022-01-15 12:39 | Outpatient (BNVA) | payer MEDICARE, OTHER, SELFPAY | PROVIDERS: PCP Family Medicine; Visit Provider Internal Medicine Cardiovascular Disease | DX: I25.10 Atherosclerotic heart disease of native coronary artery without angina pectoris (principal); I10 Essential (primary) hypertension; E78.00 Pure hypercholesterolemia, unspecified; E11.9 Type 2 diabetes mellitus without complications; Z95.1 Presence of aortocoronary bypass graft; F17.290 Nicotine dependence, other tobacco product, uncomplicated | CPT/HCPCS: 99213; 99214 ==

== ENCOUNTER 2022-03-20 15:13 | Outpatient (CLI) | payer MEDICARE, OTHER, SELFPAY | END 2022-03-20 15:14 | disposition home or self-care (01) | LOC: LAB 15:16 | PROVIDERS: PCP Family Medicine; Visit Provider Urology | DX: R97.20 Elevated prostate specific antigen [PSA] (principal) | CPT/HCPCS: 36415; 84153 ==

== ENCOUNTER → 2022-03-21 08:05 | Outpatient (BNVA) | payer MEDICARE, OTHER, SELFPAY | PROVIDERS: PCP Family Medicine; Visit Provider Urology | DX: N40.1 Benign prostatic hyperplasia with lower urinary tract symptoms (principal); R97.20 Elevated prostate specific antigen [PSA]; N52.1 Erectile dysfunction due to diseases classified elsewhere | CPT/HCPCS: 51741; 51798; 81003; 99214 ==

== ENCOUNTER → 2022-07-08 08:26 | Outpatient (BNVA) | payer MEDICARE, OTHER, SELFPAY | PROVIDERS: PCP Family Medicine; Visit Provider Internal Medicine Cardiovascular Disease | DX: I25.10 Atherosclerotic heart disease of native coronary artery without angina pectoris (principal); I10 Essential (primary) hypertension; E78.00 Pure hypercholesterolemia, unspecified; Z95.1 Presence of aortocoronary bypass graft; Z78.9 Other specified health status; E11.9 Type 2 diabetes mellitus without complications; F17.200 Nicotine dependence, unspecified, uncomplicated | CPT/HCPCS: 99214 ==

== ENCOUNTER 2022-07-15 06:00 | Outpatient (RCR) | payer MEDICARE, OTHER, SELFPAY | END 2022-07-15 23:55 | disposition home or self-care (01) | LOC: SPT 06:00 | PROVIDERS: PCP Family Medicine; Visit Provider Student in an Organized Health Care Education/Training Program | DX: M17.11 Unilateral primary osteoarthritis, right knee (principal) | CPT/HCPCS: 97110; 97161 ==

== ENCOUNTER 2022-07-16 06:00 | Outpatient (RCR) | payer MEDICARE, OTHER, SELFPAY | END 2022-08-14 23:59 | disposition home or self-care (01) | LOC: SPT 06:00 | PROVIDERS: PCP Family Medicine; Visit Provider Student in an Organized Health Care Education/Training Program | DX: Z96.651 Presence of right artificial knee joint (principal) | CPT/HCPCS: 97110 ==

== ENCOUNTER 2022-08-15 06:00 | Outpatient (RCR) | payer MEDICARE, OTHER, SELFPAY | END 2022-09-14 23:59 | disposition home or self-care (01) | LOC: SPT 06:00 | PROVIDERS: PCP Family Medicine; Visit Provider Student in an Organized Health Care Education/Training Program | DX: Z96.651 Presence of right artificial knee joint (principal); M25.561 Pain in right knee; M25.661 Stiffness of right knee, not elsewhere classified; R26.89 Other abnormalities of gait and mobility; R53.1 Weakness | CPT/HCPCS: 97110; 97140 ==

== ENCOUNTER → 2022-08-19 11:19 | Outpatient (BNVA) | payer MEDICARE, OTHER, SELFPAY | PROVIDERS: PCP Family Medicine; Visit Provider Internal Medicine Cardiovascular Disease | DX: I10 Essential (primary) hypertension (principal); F17.200 Nicotine dependence, unspecified, uncomplicated; E78.00 Pure hypercholesterolemia, unspecified; I25.10 Atherosclerotic heart disease of native coronary artery without angina pectoris; M35.3 Polymyalgia rheumatica; Z95.1 Presence of aortocoronary bypass graft; Z78.9 Other specified health status; E11.9 Type 2 diabetes mellitus without complications; Z79.84 Long term (current) use of oral hypoglycemic drugs; I45.10 Unspecified right bundle-branch block; M17.0 Bilateral primary osteoarthritis of knee | CPT/HCPCS: 99213 ==

== ENCOUNTER 2022-09-15 06:00 | Outpatient (RCR) | payer MEDICARE, OTHER, SELFPAY | END 2022-09-19 23:59 | disposition home or self-care (01) | LOC: SPT 06:00 | PROVIDERS: PCP Family Medicine; Visit Provider Student in an Organized Health Care Education/Training Program | DX: Z96.651 Presence of right artificial knee joint (principal); M47.26 Other spondylosis with radiculopathy, lumbar region | CPT/HCPCS: 97110 ==

== ENCOUNTER → 2022-09-24 08:01 | Outpatient (BNVA) | payer MEDICARE, OTHER, SELFPAY | PROVIDERS: PCP Family Medicine; Visit Provider Urology | DX: N40.1 Benign prostatic hyperplasia with lower urinary tract symptoms (principal); R97.20 Elevated prostate specific antigen [PSA]; N52.1 Erectile dysfunction due to diseases classified elsewhere | CPT/HCPCS: 51798; 81003; 99214 ==

== ENCOUNTER 2022-10-04 06:00 | Outpatient (RCR) | payer MEDICARE, OTHER, SELFPAY | END 2022-10-15 23:59 | disposition home or self-care (01) | LOC: SPT 06:00 | PROVIDERS: PCP Family Medicine; Visit Provider Physician Assistant | DX: M47.26 Other spondylosis with radiculopathy, lumbar region (principal); Z96.651 Presence of right artificial knee joint | CPT/HCPCS: 97110; 97162 ==

== ENCOUNTER 2022-10-16 06:00 | Outpatient (RCR) | payer MEDICARE, OTHER, SELFPAY | END 2022-10-30 23:59 | disposition home or self-care (01) | LOC: SPT 06:00 | PROVIDERS: PCP Family Medicine; Visit Provider Physician Assistant | DX: Z47.1 Aftercare following joint replacement surgery (principal); Z96.651 Presence of right artificial knee joint | CPT/HCPCS: 97110 ==

== ENCOUNTER 2022-10-25 03:26 | Inpatient (IN) | payer MEDICARE, OTHER, SELFPAY ==
[2022-10-25] VITALS (14 sets, daily range): BP systolic 112–196; BP diastolic 63–99; PULSE 61–105; RESP 17–23; TEMP 36.6–37.6; O2SAT 93–97; BMI 28.8
--- NOTE | 2022-10-25 03:39 | CTR_ITS ---
PROCEDURE INFORMATION: Exam: CT Abdomen And Pelvis With Contrast Exam date and time: 10/25/2022 4:57 AM Age: 72 years old Clinical indication: Fever and nausea; Prior surgery; Surgery type: Cabg. Gb. Appy. Saleem. Patient HX: Fever with nausea and hematuria. TECHNIQUE: Imaging protocol: Computed tomography of the abdomen and pelvis with contrast. Radiation optimization: All CT scans at this facility use at least one of these dose optimization techniques: automated exposure control; mA and/or kV adjustment per patient size (includes targeted exams where dose is matched to clinical indication); or iterative reconstruction. Contrast material: OMNI 350; Contrast volume: 100 ml; Contrast route: INTRAVENOUS (IV); Other protocol: This patient has received 0 known CTs and 0 known cardiac nuclear medicine studies in the 12 months prior to the current study. COMPARISON: CT abdomen pelvis wo con [id number] 05/20/2020 11:54 AM RADIATION DOSE METRICS: Total DLP (mGy-cm): 989.33 FINDINGS: Lungs: Minimal lung base atelectasis or scarring. Heart: The heart is mildly enlarged with CABG. Liver: A few minute hepatic cystic foci are too small to characterize. Hepatic steatosis. No enhancing liver mass is noted. Gallbladder and bile ducts: Absent gallbladder. Pancreas: Unremarkable with no suspicious mass. No ductal dilation. Spleen: The spleen is not enlarged. No suspicious enhancing mass is noted. Adrenal glands: Normal. No mass. Kidneys and ureters: Numerous bilateral renal cysts measure up to about 8.7 cm. Few tiny hemorrhagic left renal cysts as well. No enhancing renal mass or hydronephrosis. Minimal right nephrolithiasis. Stomach and bowel: The colon is moderately fecal filled. Moderate sigmoid diverticulosis. No small bowel obstruction, abscess or free air. A few left-sided small bowel loops measure up to 3.5 cm. Appendix: No evidence of appendicitis. Intraperitoneal space: No abscess or free air. Vasculature: Advanced diffuse vascular calcification noted. Lymph nodes: Scattered small bilateral iliac chain nodes are mildly progressive from 05/20/2020 and measure up to about 1.5 cm. Urinary bladder: Bladder is collapsed with moderate wall thickening. Reproductive: Markedly enlarged prostate. Bones/joints: Right hip arthroplasty. Moderate spine DJD. Severe L3-S1 DDD. Diffuse osteopenia. Soft tissues: Small fat umbilical hernia. CT/CT abdomen pelvis w con* [id number] IMPRESSION: 1. No small bowel obstruction, abscess or free air. 2. Mild small bowel ileus. 3. Markedly enlarged prostate with mild pelvic/iliac chain lymphadenopathy. Advise correlation. 4. Possible cystitis. 5. Fecal filled colon, colonic diverticulosis, numerous bilateral renal cysts, and other chronic findings. COMMENTS: Consistent with the [employer]'s Incidental Findings Committee white paper (J Am Sin Radiol 2018): Any incidental renal lesion less than 1 cm or classified as too small to characterize, or any incidental cystic renal lesion characterized as simple-appearing, is likely benign. No follow-up imaging is recommended for these lesions per consensus recommendations based on imaging criteria.
--- NOTE | 2022-10-25 03:39 | XRR_ITS ---
PROCEDURE INFORMATION: Exam: XR Chest Exam date and time: 10/25/2022 3:53 AM Age: 72 years old Clinical indication: Fever; Prior surgery; Surgery type: Cabg. Gb TECHNIQUE: Imaging protocol: Radiologic exam of the chest. Views: 1 view. COMPARISON: CR XR chest 1V portable [id number] 05/20/2020 10:29 AM FINDINGS: Lungs: Ebrf-rwpanac-fbdx-right lung base atelectasis or scarring. No consolidation. Pleural spaces: No pneumothorax. Heart/Mediastinum: Heart remains enlarged with CABG. Advanced diffuse vascular calcification noted. Bones/joints: Unremarkable. XR/XR chest 1V portable [id number] IMPRESSION: 1. Stable chest. No acute finding. 2. Xngi-oswoxtj-qamh-right lung base atelectasis or scarring again noted.
--- NOTE | 2022-10-25 03:40 | ECG_ITS ---
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 Measurements Intervals [place] Rate: 99 P: 35 VT: 152 QRS: 17 QRSD: 149 T: 27 QT: 360 QTc: 463 Interpretive Statements SINUS RHYTHM WITH OCCASIONAL VENTRICULAR PREMATURE COMPLEXES WITH OCCASIONAL SUPRAVENTRICULAR PREMATURE COMPLExes Right bundle branch block Compared to ECG 09/22/2020 07:26:13 Ventricular premature complex(es) now present Electronically Signed On 10-25-2022 16:19:09 MACHINE WOOD SANDER by Leonid Wilcox M.D. [email or web address] Tårtawalthall county general hospitalImago Scientific Instrumentscleveland clinic.[employer]/store/[id number]
--- NOTE | 2022-10-25 03:41 | W.ED.FEVER ---
HPI - Fever General: Chief Complaint: Fever Stated Complaint: Chills\Fever\Possible UTI Time Seen by Provider: 10/25/22 03:34 Source: patient Mode of arrival: ambulatory Limitations: no limitations History of Present Illness: 72-year-old male states that he has been having fever chills along with nausea and feel like he is about to vomit over the last 2 hours he states is also been having some frequent urination he denies any cough he had some abdominal cramping he denies any worsening improving factors no known sick contacts. Denies any chest pain. Associated symptoms: Reports chills and nausea; Deny chest pain, dysuria or headache(s) Review of Systems Const: Reports: fever(s) and chills Eyes: Denies: blurry vision or eye discomfort ENMT: Denies: throat pain or dental pain Card: Denies: chest pain Resp: Denies: dyspnea GI: Reports: nausea : Denies: dysuria Musc: Denies: neck pain or back pain Skin/Breast: Denies: rash Neuro: Denies: headache(s) Psych: Denies: depression Edgar/Lymph: Denies: easy bruising All/Imm: Denies: urticaria PFSH ED PFSH: Medical History Accelerated essential hypertension Arthritis of both hands Arthritis of both knees Beta-dwain intolerance BPH loc w urin obs/LUTS Chronic steroid use Coronary artery disease Diabetes Elevated PSA Erectile dysfunction High risk medication use HTN (hypertension) Hypercholesteremia Immunization counseling 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 Polymyalgia rheumatica Pulmonary regurgitation RBBB Surgical History History of coronary artery bypass graft x 3 Hx of appendectomy Hx of cholecystectomy S/P carpal tunnel release Family History Denies family history of Systemic lupus erythematosus, unspecified Rheumatoid arthritis Diabetes Stroke Social History Smoking and tobacco status: current some day smoker cigars Alcohol intake: current Alcohol intake frequency: 0-2 Drinks per Day Adopted: Yes Caregiver/support person: No Lives independently: No Household members: spouse Marital status: Current occupational status: retired History of recent travel: No Current gender identity: Male Physical Exam Const: COMMON NORMALS: no acute distress, patient oriented x3 and healthy appearing HENMT: COMMON NORMALS: normocephalic and atraumatic HEAD & SCALP: normocephalic and atraumatic Eye: COMMON NORMALS: Equal, round and reactive pupils present and EOMs intact bilaterally PUPIL: Yes Equal, round and reactive pupils present Neck/C-Spine: COMMON NORMALS: full ROM and supple Chest: COMMONS NORMALS: normal inspection of the chest and normal palpation of entire chest wall Resp: COMMON NORMALS: normal respiratory effort, No retractions, No use of accessory muscles and clear to auscultation bilaterally AUSCULTATION: clear to auscultation bilaterally Cardio: COMMON NORMALS: regular rate, regular rhythm and No murmurs present (Cardio) RATE: regular rate RHYTHM: regular rhythm GI: COMMON NORMALS: Normal to inspection, nondistended, normoactive bowel sounds present, Soft to palpation, non-tender and no masses PALPATION: Yes Soft to palpation Extremity: COMMON NORMALS: normal to inspection and full ROM Neuro: COMMON NORMALS: patient oriented x3, moves all extremities and no focal motor deficits Psych: COMMON NORMALS: mental status grossly normal, Normal thought process present and cooperative THOUGHT PROCESS: Normal thought process present Skin: COMMON NORMALS: no rashes or lesions noted and no wounds GENERAL SKIN EXAM: no rashes or lesions noted Course Vital Signs: Vital signs: Vital Signs Temperature 99.6 F 10/25/22 03:31 Pulse Rate 91 10/25/22 05:00 Respiratory Rate 19 H 10/25/22 05:00 Blood Pressure 160/67 10/25/22 05:00 Pulse Oximetry 95 10/25/22 05:00 Oxygen Delivery Me thod 10/25/22 05:00 MDM - Fever Medical Decision Making Patient presents here with fever along with some dysuria he does have an elevated white count of 21 with a acute cystitis. I did start patient on IV antibiotics and will admit at this time due to his leukocytosis and fever he has been stable while here. Lab Data 10/25/22 03:45 10/25/22 03:45 Radiology Impressions Abdomen/Pelvis CT 10/25/22 03:39 IMPRESSION: 1. No small bowel obstruction, abscess or free air. 2. Mild small bowel ileus. 3. Markedly enlarged prostate with mild pelvic/iliac chain lymphadenopathy. Advise correlation. 4. Possible cystitis. 5. Fecal filled colon, colonic diverticulosis, numerous bilateral renal cysts, and other chronic findings. COMMENTS: Consistent with the [employer]'s Incidental Findings Committee white paper (J Am Sin Radiol 2018): Any incidental renal lesion less than 1 cm or classified as too small to characterize, or any incidental cystic renal lesion characterized as simple-appearing, is likely benign. No follow-up imaging is recommended for these lesions per consensus recommendations based on imaging criteria. Chest X-Ray 10/25/22 03:39 IMPRESSION: 1. Stable chest. No acute finding. 2. Ofac-[id number]-aswh-right lung base atelectasis or scarring again noted. Laboratory Results WBC 21.1 10^3/uL (4.0-10.0) H 10/25/22 03:45 RBC 4.89 10^6/uL (4.1-5.3) 10/25/22 03:45 Hgb 16.0 g/dL (11.7-16.6) 10/25/22 03:45 Hct 46.8 % (42.0-52.0) 10/25/22 03:45 MCV 95.7 fl (80-94) H 10/25/22 03:45 MCH 32.7 pg (28.0-34.0) 10/25/22 03:45 MCHC 34.2 g/dL (30.0-36.0) 10/25/22 03:45 RDW 12.4 % (12.1-15.1) 10/25/22 03:45 Plt Count 235 10^3/cmm (130-400) 10/25/22 03:45 MPV 10.1 fL (7.4-10.4) 10/25/22 03:45 Neut % (Auto) 91.7 % 10/25/22 03:45 Lymph % (Auto) 4.2 % 10/25/22 03:45 Stokes % (Auto) 3.2 % 10/25/22 03:45 Eos % (Auto) 0.2 % 10/25/22 03:45 Baso % (Auto) 0.2 % 10/25/22 03:45 Neut # (Auto) 19.39 10^3/uL (1.8-7.7) H 10/25/22 03:45 Lymph # (Auto) 0.9 10^3/uL (0.8-4.8) 10/25/22 03:45 Stokes # (Auto) 0.7 10^3/uL (0.2-0.9) 10/25/22 03:45 Eos # (Auto) 0.0 10^3/uL (0.0-0.8) 10/25/22 03:45 Baso # (Auto) 0.0 10^3/uL (0.0-0.1) 10/25/22 03:45 Nucleated RBC % (auto) 0 % 10/25/22 03:45 Nucleated RBCs # 0.0 /100WBC 10/25/22 03:45 Sodium 135 mmol/L (136-145) L 10/25/22 03:45 Potassium 3.6 mmol/L (3.5-5.1) 10/25/22 03:45 Chloride 95 mmol/L (98-107) L 10/25/22 03:45 Carbon Dioxide 30 mmol/L (22-29) H 10/25/22 03:45 Anion Gap 13.6 (5-19) 10/25/22 03:45 BUN 14 mg/dL (8-23) 10/25/22 03:45 Creatinine 1.0 mg/dL (0.7-1.2) 10/25/22 03:45 GFR Calculation Not Reportable 10/25/22 03:45 Glucose 111 mg/dL (65-115) 10/25/22 03:45 Calculated Osmolality 281 mOsm/kg (285-295) L 10/25/22 03:45 Lactate 2.2 mmol/L (0.5-2.2) 10/25/22 03:45 Calcium 10.6 mg/dL (8.5-10.5) H 10/25/22 03:45 Total Bilirubin 0.8 mg/dL (0.15-1.2) 10/25/22 03:45 AST 18 U/L (0-40) 10/25/22 03:45 ALT 16 U/L (0-41) 10/25/22 03:45 Alkaline Phosphatase 76 U/L (40-130) 10/25/22 03:45 Total Protein 6.8 g/dL (6.6-8.7) 10/25/22 03:45 Albumin 4.6 g/dL (3.5-5.2) 10/25/22 03:45 Globulin 2.2 g/dL (1.3-4.6) 02 03:45 Lipase 31 U/L (13-60) 10/25/22 03:45 Urine Color Yellow (Yellow) 10/25/22 04:00 Urine Appearance Cloudy (CLEAR) A 10/25/22 04:00 Urine pH 8 (5-7) H 10/25/22 04:00 Ur Specific [place] 1.015 (1.005-1.030) 10/25/22 04:00 Urine Protein 2+ (Negative) H 10/25/22 04:00 Urine Glucose (UA) Norm (Normal) 10/25/22 04:00 Urine Ketones Negative (Negative) 10/25/22 04:00 Urine Blood 3+ (Negative) H 10/25/22 04:00 Urine Nitrate Negative (Negative) 10/25/22 04:00 Urine Bilirubin Neg (Negative) 10/25/22 04:00 Prot Sulfosalicylic Acd Positive (Negative) 10/25/22 04:00 Urine Urobilinogen Norm mg/dL (Negative) 10/25/22 04:00 Ur Leukocyte Esterase 2+ (Negative) H 10/25/22 04:00 Urine RBC 25-40 /hpf (0-2) H 10/25/22 04:00 Urine WBC Too numerous to cnt /hpf (0-5) H 10/25/22 04:00 Ur Squamous Epith Cells 0-4 /hpf (0-5) H 10/25/22 04:00 Amorphous Sediment Not Reportable 10/25/22 04:00 Urine Bacteria 1+ /hpf (NONE) H 10/25/22 04:00 Influenza Type A Ag negative (Negative) 10/25/22 03:41 Influenza Type B Ag negative (Negative) 10/25/22 03:41 SARS-CoV-2 Ag (Rapid) negative (Negative) 10/25/22 03:41 Discharge Plan Discharge Patient Disposition: Admitted As Inpatient Clinical Impression: Acute cystitis Condition: Stable Prescriptions: No Action aspirin [Aspir-81] 81 mg tablet,delayed release (DR/EC) 81 mg PO DAILY Rx Instructions: (PT UNABLE TO VERIFY DUE TO CONFUSION- IS UNSURE OF MEDS) benazepril 20 mg tablet 40 mg PO DAILY amlodipine 10 mg tablet 10 mg PO DAILY Rx Instructions: (PT UNABLE TO VERIFY DUE TO CONFUSION- IS UNSURE OF MEDS) fluticasone propionate 50 mcg/actuation spray,suspension 1 spray INTRANASAL Q12H PRN Rx Instructions: (PT UNABLE TO VERIFY DUE TO CONFUSION- IS UNSURE OF MEDS) tamsulosin 0.4 mg capsule 0.4 mg PO QDAY Qty: 30 12RF tadalafil 20 mg tablet 20 mg PO DAILY PRN (Reason: sexual activity) Qty: 20 12RF Rx Instructions: 1 pill 1 hour before intercourse NO NITROGLYCERIN! atorvastatin 20 mg tablet 20 mg PO DAILY Qty: 90 0RF prednisone 5 mg tablet 5 mg PO DAILY Qty: 90 0RF hydrochlorothiazide 25 mg tablet 25 mg PO DAILY Qty: 90 3RF Referrals: Triston Casiano, [Primary Care Provider] - Patient Instructions: Opioid Safety, Pain Management Coding Level of Care Code ED Certified Social Workers [facility] for [facility]
[2022-10-25 03:52] LABS: Basophils % 0.2 %; Eosinophils % 0.2 %; Hematocrit 46.8 % (42.0-52.0); Lymphocytes # 0.9 10^3/uL (0.8-4.8); Lymphocytes % 4.2 %; Mean Corpuscular HGB Conc 34.2 g/dL (30.0-36.0); Mean Corpuscular Hemoglobin 32.7 pg (28.0-34.0); Mean Corpuscular Volume 95.7 fl (80-94); Mean Platelet Volume 10.1 fL (7.4-10.4); Monocytes # 0.7 10^3/uL (0.2-0.9); Monocytes % 3.2 %; Neutrophils # 19.39 10^3/uL (1.8-7.7); Neutrophils % 91.7 %; Nucleated Red Blood Cells % 0 %; Platelet Count 235 10^3/cmm (130-400); Red Blood Count 4.89 10^6/uL (4.1-5.3); Red Cell Distribution Width 12.4 % (12.1-15.1); White Blood Count 21.1 10^3/uL (4.0-10.0)
[2022-10-25] MEDS: acetaminophen 325 mg Tablet 650 MG PO (03:53)
[2022-10-25] MEDS: ondansetron 2 mg/ML SDV 2 mL 4 MG IVP (03:53)
[2022-10-25] MEDS: sodium chloride 0.9% 1,000 ML 999 ML IV (03:54)
[2022-10-25 04:05] LABS: Influenza A by IFA negative (Negative); Influenza B by IFA negative (Negative); SARS Covid-2 Antigen negative (Negative)
[2022-10-25 04:13] LABS: Lactate (Lactic Acid level) 2.2 mmol/L (0.5-2.2)
[2022-10-25 04:14] LABS: Alanine Aminotransferase 16 U/L (0-41); Albumin Level 4.6 g/dL (3.5-5.2); Alkaline Phosphatase 76 U/L (40-130); Anion Gap 13.6 (5-19); Aspartate Amino Transferase 18 U/L (0-40); Blood Urea Nitrogen 14 mg/dL (8-23); Calcium 10.6 mg/dL (8.5-10.5); Carbon Dioxide 30 mmol/L (22-29); Chloride 95 mmol/L (98-107); Globulin 2.2 g/dL (1.3-4.6); Glucose 111 mg/dL (65-115); Lipase 31 U/L (13-60); Osmolality Calculated 281 mOsm/kg (285-295); Potassium 3.6 mmol/L (3.5-5.1); Sodium 135 mmol/L (136-145); Total Bilirubin 0.8 mg/dL (0.15-1.2); Total Protein 6.8 g/dL (6.6-8.7)
[2022-10-25 04:40] LABS: Add Urine Culture? Yes; Add Urine Microscopic? YES; Bacteria Urine 1+ /hpf; Bilirubin Urine Neg (Negative); Blood Urine 3+ (Negative); Glucose Urine UA Norm (Normal); Ketones Urine Negative (Negative); Leukocyte Esterase Urine 2+ (Negative); Nitrate Urine Negative (Negative); Protein Urine 2+ (Negative); RBC Urine 25-40 /hpf (0-2); Specific Gravity, Urine 1.015 (1.005-1.030); Squamous Epithelial Cell Urine 0-4 /hpf (0-5); Sulfosalicylic Acid Urine Positive (Negative); Urine Appearance Cloudy (CLEAR); Urine Color Yellow (Yellow); Urobilinogen Urine Norm (Negative); WBC Urine TOO NUMEROUS TO CNT /hpf (0-5); pH Urine 8 (5-7)
[2022-10-25] MEDS: cefTRIAXone 1,000 MG in sodium chloride 0.9% (plus) 50 ML 100 MG IV (04:50)
[2022-10-25] MEDS: iohexol 350 mg/mL 500 mL Btl (per mL) IV (05:00)
[2022-10-25] MEDS: morphine 4 mg/mL SDV 1 mL 2 MG IVP (07:09)
--- NOTE | 2022-10-25 08:59 | P.HP_ITS ---
Providers/Chief Complaint Admitting Physician: Alexandr Dumont MD Primary Care Provider: Triston Casiano DO Chief Complaint: Chills\Fever\Possible UTI History of Present Illness Jose Cooley is a 72 year old male with history of prostatitis, CABG x3, hypertension, hypercholesterolemia, BPH, and chronic steroid use who presented to the ER this morning due to sudden onset of chills and nausea. Patient states he has a history of prostatitis that led to sepsis and required a 2-day stay in ICU. He notes that yesterday, he began noticing he had to urinate more than usual, and after going to sleep last night woke up with sudden onset of chills, nausea, dizziness, and a subjective fever. He denies dysuria, but states that upon obtaining urinalysis in the ER he passed a significant amount of blood with noticeable clots. He denies any suprapubic abdominal pain, back pain, or flank pain. He also denies any history of kidney stones. Patient has a surgical history positive for appendectomy, cholecystectomy, and recent surgery to his right knee and hip. He is an everyday drinker of approximately 6 ounces of alcohol. He also smokes a cigar once per day. Patient states he sees Dr. Vines for his history of BPH, and states that his last PSA was within normal limits. He reportedly has a history of diabetes but states his last A1c was 5.8. Review of Systems Narrative: General: Reports subjective fever, chills Skin: Denies color changes, rash Eyes: Denies visual changes HENT: Denies headache, ear pain, rhinorrhea, sore throat Cardiovascular: Denies chest pain, palpitations, syncope, peripheral edema Respiratory: Denies dyspnea, wheezing, cough GI: Reports nausea. Denies abdominal pain, distention, vomiting, bowel changes : Reports frequent urination, hematuria in the ER. Denies dysuria Musculoskeletal: Denies back pain, flank pain Neuro: Reports dizziness. Denies paresthesia, numbness Medications/Allergies Home Medications Medication Instructions Recorded Confirmed Last Taken Type amlodipine 10 mg tablet 10 mg PO DAILY 09/23/19 10/25/22 09/22/20 05:30 History benazepril 20 mg tablet 40 mg PO DAILY 10/26/20 10/25/22 Unknown History tamsulosin 0.4 mg capsule 0.4 mg PO QDAY #30 caps 05/14/21 10/25/22 Unknown Rx fluticasone propionate 50 1 spray intranasal Q12H PRN 07/31/21 10/25/22 Unknown History mcg/actuation nasal Allergy Symptoms spray,suspension prednisone 5 mg tablet 5 mg PO DAILY #90 tabs 09/11/22 10/25/22 Unknown Rx tadalafil 20 mg tablet 20 mg PO DAILY PRN sexual activity 09/24/22 10/25/22 Unknown Rx #20 tabs hydrochlorothiazide 25 mg tablet 25 mg PO DAILY #90 tabs 10/04/22 10/25/22 Unknown Rx aspirin 81 mg tablet,delayed 81 mg PO DAILY 10/25/22 10/25/22 Unknown History release atorvastatin 20 mg tablet 20 mg PO QPM 10/25/22 10/25/22 Unknown History Allergies Allergy/AdvReac Type Severity Reaction Status Date / Time No Known Allergies Allergy Verified 10/25/22 09:01 PFSH Acute PFSH: Medical History Accelerated essential hypertension Arthritis of both hands Arthritis of both knees Beta-dwain intolerance BPH loc w urin obs/LUTS Chronic steroid use Coronary artery disease Diabetes Elevated PSA Erectile dysfunction High risk medication use HTN (hypertension) Hypercholesteremia Immunization counseling 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 Polymyalgia rheumatica Pulmonary regurgitation RBBB Surgical History History of coronary artery bypass graft x 3 Hx of appendectomy Hx of cholecystectomy S/P carpal tunnel release Family History Denies family history of Systemic lupus erythematosus, unspecified Rheumatoid arthritis Diabetes Stroke Social History Smoking and tobacco status: current some day smoker cigars Alcohol intake: current Alcohol intake frequency: 0-2 Drinks per Day Adopted: Yes Caregiver/support person: No Lives independently: No Household members: spouse Marital status: Current occupational status: retired History of recent travel: No Current gender identity: Male Vitals/I&O/Wt Last Vital Signs Temp 97.8 F 10/25/22 08:28 Pulse 97 10/25/22 08:28 Resp 17 10/25/22 08:28 BP 112/64 10/25/22 08:28 Pulse Ox 94 10/25/22 08:28 O2 Del Method 10/25/22 06:28 10/24/22 10/25/22 10/25/22 22:59 06:59 14:59 Intake Total 1050 / 1050 Balance 1050 / 1050 Weight last 48 hrs Weight 102.058 kg Physical Exam Narrative: Constitutional: Well-developed, well-nourished white male appears in no acute distress. Skin: No obvious skin color changes. Normal capillary refill. Eyes: No scleral icterus or injection. HENT: Head is atraumatic and normocephalic. Ear exam deferred. No obvious nasal drainage. No pharyngeal erythema. Cardiovascular: Regular rate and rhythm. Gallop is noted. Respiratory: Lungs are clear to auscultation bilaterally with no acute signs of respiratory distress. GI: Abdomen is nontender to palpation. Mildly obese abdomen but no significant distention. No rebound or guarding. Normal bowel sounds. : No suprapubic tenderness but otherwise exam is deferred. Musculoskeletal: Well-healed surgical scar over the anterior aspect of the right knee. No tenderness of the flanks or paraspinal muscles. Neuro: Alert and oriented x3. No focal neurological deficits. Data 10/25/22 03:45 10/25/22 03:45 Other Labs: Lactate is 2.2, calcium 10.6, LFTs normal Urinalysis with 25-40 reds, too numerous to count whites Influenza and COVID are negative Lipase 31 CT abdomen pelvis demonstrate no obstruction, enlarged prostate, possible cystitis, numerous renal cysts. I reviewed the CT Chest x-ray shows no infiltrate. Chronic changes left lung base per my inter pretation. EKG demonstrates sinus rhythm, normal axis, right bundle branch block, nonspecific ST-T wave changes Micro: Microbiology 10/25/22 04:00 Blood Culture - Preliminary Blood SPECIMEN COLLECTED 10/25/22 04:00 Blood Culture - Preliminary Blood SPECIMEN COLLECTED A&P Assessment and plan (1) Acute cystitis: Patient presents with febrile UTI. White blood cell count was markedly elevated. Mild tachycardia was present on admission Patient had subjective fever at home He has past history of bacteremia with UTI in 2019 with E. coli He is at high risk for bacteremia. Blood cultures and urine cultures have been obtained. We will continue to follow Accurate ins and outs Close follow-up of white blood cell count and kidney function with CBC and BMP in the morning Qualifies for observation currently Note that he is also on chronic steroids, which could mask significant infection and response to it (2) HTN (hypertension): Continue home medications Qualifiers: Hypertension type: essential hypertension Qualified Code(s): I10 - Essential (primary) hypertension (3) Coronary artery disease: Continue statin, aspirin Qualifiers: Coronary Disease-Associated Artery/Lesion type: [place] artery [place] vs. transplanted heart: [place] heart Associated angina: angina presence unspecified Qualified Code(s): I25.10 - Atherosclerotic heart disease of [place] coronary artery without angina pectoris Plan Multiple other medical problems as outlined in past medical history Full code currently Lovenox for DVT prophylaxis Attestations Medical Necessity Statement*: May require less than 2 midnight stay for evaluation and treatment of febrile UTI Diagnoses Acute cystitis N30.00 HTN (hypertension) I10 Hypertension type: essential hypertension Coronary artery disease I25.10 Coronary Disease-Associated Artery/Lesion type: [place] artery [place] vs. transplanted heart: [place] heart Associated angina: angina presence unspecified Time Spent (min) 55
[2022-10-25] MEDS: tamsulosin 0.4 mg Capsule PO (10:37)
--- NOTE | 2022-10-25 11:21 | PC.CHAP ---
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 [] Patient/Family/Request visit [] Outpatient visit [] Follow-up visit [] Physician referral [] Code/Alert [x] Routine visit [] Staff referral [] Actively dying [] Patient sleeping [x] Family support [] [] Out of room [] Palliative care [] [] Receiving care in room [] Pre-surgical visit [] Trauma [] Long length of stay [] ICU visit [] Other: Relational/Emotional Strength [x] Patient feels connected with others/family/visitors/staff [] Distress [] Loneliness/isolation [] Abandonment Spirituality of Patient [x] Person of Rosal[place] [] Attends Church of their [place] [x] Believes in Prayer [] Reads Bible or Catholic materials [] There are Spiritual issues to be addressed Twister Doffer Interventions [x] Prayer [] Active listening [] Non-anxious presence [] Spiritual/emotional support [] Crisis/trauma care [] Spiritual counseling [] Bereavement support [] Provided bereavement packet [] Provided Bible/devotional materials [] Provided toy/stuffed animal, coloring book to patient or family member [] Provided Communion [] Anointing/[place] [] Salvation [x] Completed spiritual assessment [] Other: Impact on Illness or Injury [] Angry [] Fearful [] Anxious [] Often cries [] Exhaustion [] Unable to work [] Unable to attend shinto [] Unable to walk/stand [] Unable to read [] Unable to drive [] Unable to eat/drink [] Unable to sleep [] Unable to be with family [] Patient intubated [] Other: Summary Time spent with patient 15min
[2022-10-25] MEDS: atorvastatin 40 mg Tablet 20 MG PO (17:23)
[2022-10-25] MEDS: oxyCODONE 5 mg IR Tab/Cap PO (19:17)
[2022-10-26] VITALS (7 sets, daily range): BP systolic 111–147; BP diastolic 66–78; PULSE 73–114; RESP 16–24; TEMP 36.4–36.8; O2SAT 93–99
[2022-10-26] MEDS: cefTRIAXone 1,000 MG in sodium chloride 0.9% (plus) 50 ML 100 MG IV (04:45)
[2022-10-26 05:14] LABS: Basophils # 0.1 10^3/uL (0.0-0.1); Basophils % 0.3 %; Eosinophils # 0.1 10^3/uL (0.0-0.8); Eosinophils % 0.3 %; Hematocrit 40.4 % (42.0-52.0); Hemoglobin 13.6 g/dL (11.7-16.6); Lymphocytes # 0.9 10^3/uL (0.8-4.8); Lymphocytes % 5.1 %; Mean Corpuscular HGB Conc 33.7 g/dL (30.0-36.0); Mean Corpuscular Hemoglobin 32.9 pg (28.0-34.0); Mean Corpuscular Volume 97.6 fl (80-94); Mean Platelet Volume 10.4 fL (7.4-10.4); Monocytes # 1.2 10^3/uL (0.2-0.9); Monocytes % 6.5 %; Neutrophils # 15.85 10^3/uL (1.8-7.7); Neutrophils % 87.1 %; Nucleated Red Blood Cells % 0 %; Platelet Count 191 10^3/cmm (130-400); Red Blood Count 4.14 10^6/uL (4.1-5.3); Red Cell Distribution Width 12.7 % (12.1-15.1); White Blood Count 18.2 10^3/uL (4.0-10.0)
[2022-10-26] MEDS: oxyCODONE 5 mg IR Tab/Cap PO (05:38)
[2022-10-26 05:42] LABS: Anion Gap 14.5 (5-19); Blood Urea Nitrogen 14 mg/dL (8-23); Calcium 9.1 mg/dL (8.5-10.5); Carbon Dioxide 25 mmol/L (22-29); Chloride 96 mmol/L (98-107); Glucose 98 mg/dL (65-115); Osmolality Calculated 274 mOsm/kg (285-295); Potassium 3.5 mmol/L (3.5-5.1); Sodium 132 mmol/L (136-145)
[2022-10-26] MEDS: lisinopril 20 mg Tablet 40 MG PO (09:02)
[2022-10-26] MEDS: predniSONE 5 mg Tablet PO (09:03)
[2022-10-26] MEDS: aspirin 81 mg EC Tablet PO (09:03)
[2022-10-26] MEDS: amlodipine 10 mg Tablet PO (09:03)
[2022-10-26] MEDS: tamsulosin 0.4 mg Capsule PO (09:03)
[2022-10-26] MEDS: hydroCHLOROthiazide 25 mg Tablet PO (09:03)
--- NOTE | 2022-10-26 16:15 | P.PN_ITS ---
Subjective Subjective: Hospital course, labs appreciated. On examination today patient walking around in the room with family at bedside. States he is feeling a lot better other than pain in his right hip and knee which are post replacement. Denies any nausea, vomiting, headache. Asking if he can go home. Vitals/I&O/Wt Last Vital Signs Temp 97.9 F 10/26/22 12:00 Pulse 84 10/26/22 12:00 Resp 16 10/26/22 12:00 BP 111/66 10/26/22 12:00 Pulse Ox 94 10/26/22 12:00 O2 Del Method 10/26/22 12:00 10/26/22 10/26/22 10/26/22 06:59 14:59 22:59 Intake Total 840 / 1440 720 / 720 Output Total 825 / 950 700 / 700 Balance 15 / 490 20 / Weight last 48 hrs Weight 102.058 kg Physical Exam Narrative: Constitutional: Well-developed, well-nourished white male appears in no acute distress. Skin: No obvious skin color changes. Normal capillary refill. Eyes: No scleral icterus or injection. HENT: Head is atraumatic and normocephalic. Ear exam deferred. No obvious nasal drainage. No pharyngeal erythema. Cardiovascular: Regular rate and rhythm. Gallop is noted. Respiratory: Lungs are clear to auscultation bilaterally with no acute signs of respiratory distress. GI: Abdomen is nontender to palpation. Mildly obese abdomen but no significant distention. No rebound or guarding. Normal bowel sounds. : No suprapubic tenderness but otherwise exam is deferred. Musculoskeletal: Well-healed surgical scar over the anterior aspect of the right knee. No tenderness of the flanks or paraspinal muscles. Neuro: Alert and oriented x3. No focal neurological deficits. Data 10/26/22 04:57 10/26/22 04:57 Micro: Microbiology 10/25/22 04:00 Urine Culture - Preliminary Urine,Clean Catch Gram Negative Rods 10/25/22 04:00 Blood Culture - Preliminary Blood NEGATIVE TO DATE 10/25/22 04:00 Blood Culture - Preliminary Blood NEGATIVE TO DATE A&P Assessment and plan (1) Acute cystitis: He has past history of bacteremia with UTI/prostatitis in 2019 with ICU a dmission with E. coli He is at high risk for bacteremia. Blood cultures so far negative. Urine culture growing gram-negative rods. Will await complete identification and sensitivities. For now continue with IV ceftriaxone. Patient is agreeable to stay. Keep mean artery pressure 65. Continue with chronic oral steroid with prednisone at 5 mg daily. (2) HTN (hypertension): Continue home medications Qualifiers: Hypertension type: essential hypertension Qualified Code(s): I10 - Essential (primary) hypertension (3) Coronary artery disease: Continue statin, aspirin Qualifiers: Coronary Disease-Associated Artery/Lesion type: [place] artery [place] vs. transplanted heart: [place] heart Associated angina: angina presence unspecified Qualified Code(s): I25.10 - Atherosclerotic heart disease of [place] coronary artery without angina pectoris Plan Multiple other medical problems as outlined in past medical history Full code currently Lovenox for DVT prophylaxis Attestations Medical Necessity Statement*: Requires further hospitalization for management of acute cystitis while urine culture sensitivities and identification is awaited as patient is at a high risk of bacteremia in setting of chronic prostatitis and Moderate Time for a total of 35 minutes, includes reviewing past or interval history, examining/interviewing patient, placing orders, counseling patient/family/other support, updating patient/family/other support, discussing plan of care with staff, communicating with other healthcare providers, documenting encounter and coordinating care Diagnoses Acute cystitis N30.00 HTN (hypertension) I10 Hypertension type: essential hypertension Coronary artery disease I25.10 Coronary Disease-Associated Artery/Lesion type: [place] artery [place] vs. transplanted heart: [place] heart Associated angina: angina presence unspecified
[2022-10-26] MEDS: atorvastatin 40 mg Tablet 20 MG PO (18:12)
[2022-10-27] VITALS (25 sets, daily range): BP systolic 136–192; BP diastolic 68–94; PULSE 66–96; RESP 4–25; TEMP 36.4–38.8; O2SAT 92–98
[2022-10-27] MEDS: acetaminophen 325 mg Tablet 650 MG PO ×2 (01:33→09:37)
[2022-10-27] MEDS: cefTRIAXone 1,000 MG in sodium chloride 0.9% (plus) 50 ML 100 MG IV (04:22)
[2022-10-27 04:39] LABS: Basophils % 0.2 %; Eosinophils # 0.1 10^3/uL (0.0-0.8); Eosinophils % 0.6 %; Hematocrit 37.9 % (42.0-52.0); Hemoglobin 12.8 g/dL (11.7-16.6); Lymphocytes # 0.7 10^3/uL (0.8-4.8); Lymphocytes % 5.3 %; Mean Corpuscular HGB Conc 33.8 g/dL (30.0-36.0); Mean Corpuscular Hemoglobin 32.8 pg (28.0-34.0); Mean Corpuscular Volume 97.2 fl (80-94); Mean Platelet Volume 10.8 fL (7.4-10.4); Monocytes # 0.8 10^3/uL (0.2-0.9); Monocytes % 6.6 %; Neutrophils # 10.97 10^3/uL (1.8-7.7); Neutrophils % 86.8 %; Nucleated Red Blood Cells % 0 %; Platelet Count 185 10^3/cmm (130-400); Red Cell Distribution Width 12.4 % (12.1-15.1); White Blood Count 12.6 10^3/uL (4.0-10.0)
[2022-10-27 05:01] LABS: Alanine Aminotransferase 13 U/L (0-41); Albumin Level 3.4 g/dL (3.5-5.2); Alkaline Phosphatase 68 U/L (40-130); Anion Gap 14.2 (5-19); Aspartate Amino Transferase 15 U/L (0-40); Blood Urea Nitrogen 11 mg/dL (8-23); Calcium 9.1 mg/dL (8.5-10.5); Carbon Dioxide 25 mmol/L (22-29); Chloride 91 mmol/L (98-107); Globulin 2.3 g/dL (1.3-4.6); Glucose 105 mg/dL (65-115); Osmolality Calculated 264 mOsm/kg (285-295); Potassium 3.2 mmol/L (3.5-5.1); Sodium 127 mmol/L (136-145); Total Bilirubin 0.7 mg/dL (0.15-1.2); Total Protein 5.7 g/dL (6.6-8.7)
[2022-10-27] MEDS: hydroCHLOROthiazide 25 mg Tablet PO (09:34)
[2022-10-27] MEDS: amlodipine 10 mg Tablet PO (09:34)
[2022-10-27] MEDS: aspirin 81 mg EC Tablet PO (09:34)
[2022-10-27] MEDS: lisinopril 20 mg Tablet 40 MG PO (09:34)
[2022-10-27] MEDS: tamsulosin 0.4 mg Capsule PO (09:34)
[2022-10-27] MEDS: predniSONE 5 mg Tablet PO (09:35)
--- NOTE | 2022-10-27 09:36 | P.DS_ITS ---
Discharge Providers Date of Admission: 10/26/22 16:38 Date of Discharge: October 27, 2022 Attending Provider at Admission: Dorinda Pimentel MD Attending Provider at Discharge: Girma Roberts MD Primary Care Provider: Triston Casiano DO Diagnoses at Discharge Discharge Diagnosis (1) Acute cystitis: Status: Acute (2) HTN (hypertension): Status: Acute Qualifiers: Hypertension type: essential hypertension Qualified Code(s): I10 - Essential (primary) hypertension (3) Coronary artery disease: Status: Chronic Qualifiers: Coronary Disease-Associated Artery/Lesion type: [place] artery [place] vs. transplanted heart: [place] heart Associated angina: angina presence unspecified Qualified Code(s): I25.10 - Atherosclerotic heart disease of [place] coronary artery without angina pectoris Reason for Visit Reason for Visit: Chills\Fever\Possible UTI Physical Exam Narrative: Constitutional: Well-developed, well-nourished white male appears in no acute distress. Skin: No obvious skin color changes. Normal capillary refill. Eyes: No scleral icterus or injection. HENT: Head is atraumatic and normocephalic. Ear exam deferred. No obvious nasal drainage. No pharyngeal erythema. Cardiovascular: Regular rate and rhythm. Gallop is noted. Respiratory: Lungs are clear to auscultation bilaterally with no acute signs of respiratory distress. GI: Abdomen is nontender to palpation. Mildly obese abdomen but no significant distention. No rebound or guarding. Normal bowel sounds. : No suprapubic tenderness but otherwise exam is deferred. Musculoskeletal: Well-healed surgical scar over the anterior aspect of the right knee. No tenderness of the flanks or paraspinal muscles. Neuro: Alert and oriented x3. No focal neurological deficits. Discharge Data Studies Completed and Pending Completed Studies During Hospitalization Category Date Time Status CT abdomen pelvis w con* [id number] Stat Cat Scan 10/25/22 03:39 Completed XR chest 1V portable [id number] Stat Exams 10/25/22 03:39 Completed Pending at discharge Category Date Time Status Blood Culture Stat Lab 10/25/22 04:00 Results Urine Culture Stat Lab 10/25/22 04:00 Results Radiology Impressions Abdomen/Pelvis CT 10/25/22 03:39 IMPRESSION: 1. No small bowel obstruction, abscess or free air. 2. Mild small bowel ileus. 3. Markedly enlarged prostate with mild pelvic/iliac chain lymphadenopathy. Advise correlation. 4. Possible cystitis. 5. Fecal filled colon, colonic diverticulosis, numerous bilateral renal cysts, and other chronic findings. COMMENTS: Consistent with the [employer]'s Incidental Findings Committee white paper (J Am Sin Radiol 2018): Any incidental renal lesion less than 1 cm or classified as too small to characterize, or any incidental cystic renal lesion characterized as simple-appearing, is likely benign. No follow-up imaging is recommended for these lesions per consensus recommendations based on imaging criteria. Chest X-Ray 10/25/22 03:39 IMPRESSION: 1. Stable chest. No acute finding. 2. Tmix-mhyuclc-yipl-right lung base atelectasis or scarring again noted. Laboratory Results WBC 12.6 10^3/uL (4.0-10.0) H 10/27/22 03:54 RBC 3.90 10^6/uL (4.1-5.3) L 10/27/22 03:54 Hgb 12.8 g/dL (11.7-16.6) 10/27/22 03:54 Hct 37.9 % (42.0-52.0) L 10/27/22 03:54 MCV 97.2 fl (80-94) H 10/27/22 03:54 MCH 32.8 pg (28.0-34.0) 10/27/22 03:54 MCHC 33.8 g/dL (30.0-36.0) 10/27/22 03:54 RDW 12.4 % (12.1-15.1) 10/27/22 03:54 Plt Count 185 10^3/cmm (130-400) 10/27/22 03:54 MPV 10.8 fL (7.4-10.4) H 10/27/22 03:54 Neut % (Auto) 86.8 % 10/27/22 03:54 Lymph % (Auto) 5.3 % 10/27/22 03:54 [place] % (Auto) 6.6 % 10/27/22 03:54 Eos % (Auto) 0.6 % 10/27/22 03:54 Baso % (Auto) 0.2 % 10/27/22 03:54 Neut # (Auto) 10.97 10^3/uL (1.8-7.7) H 10/27/22 03:54 Lymph # (Auto) 0.7 10^3/uL (0.8-4.8) L 10/27/22 03:54 [place] # (Auto) 0.8 10^3/uL (0.2-0.9) 10/27/22 03:54 Eos # (Auto) 0.1 10^3/uL (0.0-0.8) 10/27/22 03:54 Baso # (Auto) 0.0 10^3/uL (0.0-0.1) 10/27/22 03:54 Nucleated RBC % (auto) 0 % 10/27/22 03:54 Nucleated RBCs # 0.0 /100WBC 10/27/22 03:54 Sodium 127 mmol/L (136-145) L 10/27/22 03:54 Potassium 3.2 mmol/L (3.5-5.1) L 10/27/22 03:54 Chloride 91 mmol/L (98-107) L 10/27/22 03:54 Carbon Dioxide 25 mmol/L (22-29) 10/27/22 03:54 Anion Gap 14.2 (5-19) 10/27/22 03:54 BUN 11 mg/dL (8-23) 10/27/22 03:54 Creatinine 0.9 mg/dL (0.7-1.2) 10/27/22 03:54 GFR Calculation Not Reportable 10/27/22 03:54 Glucose 105 mg/dL (65-115) 10/27/22 03:54 Calculated Osmolality 264 mOsm/kg (285-295) L 10/27/22 03:54 Lactate 2.2 mmol/L (0.5-2.2) 10/25/22 03:45 Calcium 9.1 mg/dL (8.5-10.5) 10/27/22 03:54 Total Bilirubin 0.7 mg/dL (0.15-1.2) 10/27/22 03:54 AST 15 U/L (0-40) 10/27/22 03:54 ALT 13 U/L (0-41) 10/27/22 03:54 Alkaline Phosphatase 68 U/L (40-130) 10/27/22 03:54 Total Protein 5.7 g/dL (6.6-8.7) L 10/27/22 03:54 Albumin 3.4 g/dL (3.5-5.2) L 10/27/22 03:54 Globulin 2.3 g/dL (1.3-4.6) 10/27/22 03:54 Lipase 31 U/L (13-60) 10/25/22 03:45 Urine Color Yellow (Yellow) 10/25/22 04:00 Urine Appearance Cloudy (CLEAR) A 10/25/22 04:00 Urine pH 8 (5-7) H 10/25/22 04:00 Ur Specific [place] 1.015 (1.005-1.030) 10/25/22 04:00 Urine Protein 2+ (Negative) H 10/25/22 04:00 Urine Glucose (UA) Norm (Normal) 10/25/22 04:00 Urine Ketones Negative (Negative) 10/25/22 04:00 Urine Blood 3+ (Negative) H 10/25/22 04:00 Urine Nitrate Negative (Negative) 10/25/22 04:00 Urine Bilirubin Neg (Negative) 10/25/22 04:00 Prot Sulfosalicylic Acd Positive (Negative) 10/25/22 04:00 Urine Urobilinogen Norm mg/dL (Negative) 10/25/22 04:00 Ur Leukocyte Esterase 2+ (Negative) H 10/25/22 04:00 Urine RBC 25-40 /hpf (0-2) H 10/25/22 04:00 Urine WBC Too numerous to cnt /hpf (0-5) H 10/25/22 04:00 Ur Squamous Epith Cells 0-4 /hpf (0-5) H 10/25/22 04:00 Amorphous Sediment Not Reportable 10/25/22 04:00 Urine Bacteria 1+ /hpf (NONE) H 10/25/22 04:00 Influenza Type A Ag negative (Negative) 10/25/22 03:41 Influenza Type B Ag negative (Negative) 10/25/22 03:41 SARS-CoV-2 Ag (Rapid) negative (Negative) 10/25/22 03:41 Vitals Last Vital Signs Temp 97.6 F 10/27/22 08:00 Pulse 77 10/27/22 08:00 Resp 17 10/27/22 08:00 BP 156/74 10/27/22 08:00 Pulse Ox 98 10/27/22 08:00 O2 Del Method 10/27/22 00:00 Discharge Plan Discharge Patient Disposition: Home Condition: Stable Prescriptions: New levofloxacin 500 mg tablet 500 mg PO Q24H 7 Days Qty: 7 0RF Continued benazepril 20 mg tablet 40 mg PO DAILY amlodipine 10 mg tablet 10 mg PO DAILY fluticasone propionate 50 mcg/actuation spray,suspension 1 spray INTRANASAL Q12H PRN (Reason: Allergy Symptoms) tamsulosin 0.4 mg capsule 0.4 mg PO QDAY Qty: 30 12RF tadalafil 20 mg tablet 20 mg PO DAILY PRN (Reason: sexual activity) Qty: 20 12RF Rx Instructions: 1 pill 1 hour before intercourse NO NITROGLYCERIN! prednisone 5 mg tablet 5 mg PO DAILY Qty: 90 0RF hydrochlorothiazide 25 mg tablet 25 mg PO DAILY Qty: 90 3RF Aspir-81 81 mg Tablet,Delayed Release (Dr/Ec) 81 mg PO DAILY atorvastatin 20 mg tablet 20 mg PO QPM Discharge Orders: Discharge Order (Routine); Ordered 10/27/22 Ordered By: Girma Roberts Referrals: Triston Casiano DO [Primary Care Provider] - 7-10 days Discharge Diet: Cardiac Discharge Activity: Resume usual activity and Increase activity as tolerated Patient Instructions: Opioid Safety, Pain Management Activity Restrictions/Additional Instructions: Take Levaquin which is the antibiotic for next 7 days. Please follow-up with a primary care provider within next 1 week to 10 days. Discharge Attestations Time Spent in Discharge Care*: greater than 30 min Specific Discharge Activities: educating patient, educating and/or supporting family/caregiver, discussing with pcp/other providers, discussing with watch case polisher/social workers/dc planners, documenting/other paperwork and evaluating patient/reviewing data Status at Discharge: Cognitive status at discharge: cognitively intact , Behavioral status at discharge: cooperative , Functional status at discharge: independent ambulation , Overall status at discharge: patient is back to baseline Quality Metrics Clinical Quality Measures [ No reported AMI, CVA or VTE this stay] Coding Level of Care Code Acute Code for Chg Fwd Diagnoses Acute cystitis N30.00 HTN (hypertension) I10 Hypertension type: essential hypertension Coronary artery disease I25.10 Coronary Disease-Associated Artery/Lesion type: [place] artery [place] vs. transplanted heart: [place] heart Associated angina: angina presence unspecified
--- NOTE | 2022-10-27 09:38 | PC.NURSE ---
Patient shaking and reports being chilled. Temperature check 98.4 Oral. Denies any pain aside from arthritis pain in the knees. Tylenol given for pain. Warm blanket given. Patient denies any further needs at this time.
[2022-10-27 11:00] LABS: Glucose Point of Care 126 mg/dL (70-110)
[2022-10-27] MEDS: potassium chloride ER 20 mEq Tablet 40 MEQ PO (11:34)
[2022-10-27] MEDS: sodium chloride 0.9% 1,000 ML 75 ML IV (11:34)
[2022-10-27] MEDS: magnesium hydroxide 30 mL UDC PO (11:34)
--- NOTE | 2022-10-27 14:39 | PM.PN ---
Subjective Subjective: Patient was supposed to be discharged today but discharge was withheld as on examination seems fairly weak. As per patient he was not able to sleep last night because he was having extreme sweating and chills. No documented fever overnight. Patient also complaining of mild hematuria during the day today. Denies any nausea or vomiting. Otherwise has remained hemodynamically stable. Vitals/I&O/Wt Last Vital Signs Temp 97.6 F 10/27/22 08:00 Pulse 77 10/27/22 08:00 Resp 17 10/27/22 08:00 BP 156/74 10/27/22 08:00 Pulse Ox 98 10/27/22 08:00 O2 Del Method 10/27/22 00:00 10/26/22 10/27/22 10/27/22 22:59 06:59 14:59 Intake Total 530 / 1250 50 / 1300 Output Total 150 / 850 1000 / 1850 Balance 380 / 400 -950 / -550 Physical Exam Narrative: Constitutional: Well-developed, well-nourished white male appears in acute distress because of chills and weakness Skin: No obvious skin color changes. Normal capillary refill. Eyes: No scleral icterus or injection. HENT: Head is atraumatic and normocephalic. Ear exam deferred. No obvious nasal drainage. No pharyngeal erythema. Cardiovascular: Regular rate and rhythm. Gallop is noted. Respiratory: Lungs are clear to auscultation bilaterally with no acute signs of respiratory distress. GI: Abdomen is nontender to palpation. Mildly obese abdomen but no significant distention. No rebound or guarding. Normal bowel sounds. : No suprapubic tenderness but otherwise exam is deferred. Musculoskeletal: Well-healed surgical scar over the anterior aspect of the right knee. No tenderness of the flanks or paraspinal muscles. Neuro: Alert and oriented x3. No focal neurological deficits. Data 10/27/22 03:54 10/27/22 03:54 Micro: Microbiology 10/25/22 04:00 Urine Culture - Final Urine,Clean Catch Escherichia coli A&P Assessment and plan (1) Acute cystitis: He has past history of bacteremia with UTI/prostatitis in 2019 with ICU admission with E. coli He is at high risk for bacteremia. Blood cultures so far negative. Urine cultures growing pansensitive E. coli. For now continue with IV ceftriaxone. Can switch to Levaquin on discharge to finish a 10-day course given history of prostatitis in the past. Keep mean artery pressure 65. Continue with chronic oral steroid with prednisone at 5 mg daily. (2) Hyponatremia: Start on IV hydration with normal saline at 75 cc/h. Hold off on hydrochlorothiazide. Repeat BMP in AM. (3) HTN (hypertension): Continue home medications except hydrochlorothiazide given hyponatremia. Qualifiers: Hypertension type: essential hypertension Qualified Code(s): I10 - Essential (primary) hypertension (4) Coronary artery disease: Continue statin, aspirin Qualifiers: Coronary Disease-Associated Artery/Lesion type: [place] artery [place] vs. transplanted heart: [place] heart Associated angina: angina presence unspecified Qualified Code(s): I25.10 - Atherosclerotic heart disease of [place] coronary artery without angina pectoris (5) Weakness: Plan Multiple other medical problems as outlined in past medical history Full code currently Lovenox for DVT prophylaxis Attestations Medical Necessity Statement*: Requires further hospitalization for management of complicated UTI secondary to E. coli, symptomatic hyponatremia requiring IV fluid resuscitation and Moderate Time for a total of 40 minutes, includes reviewing past or interval history, examining/interviewing patient, placing orders, counseling patient/family/other support, updating patient/family/other support, discussing plan of care with staff, communicating with other healthcare providers, documenting encounter and coordinating care Diagnoses Acute cystitis N30.00 Hyponatremia E87.1 HTN (hypertension) I10 Hypertension type: essential hypertension Coronary artery disease I25.10 Coronary Disease-Associated Artery/Lesion type: [place] artery [place] vs. transplanted heart: [place] heart Associated angina: angina presence unspecified Weakness R53.1
[2022-10-27] MEDS: atorvastatin 40 mg Tablet 20 MG PO (18:07)
[2022-10-27 19:21] LABS: Add Urine Microscopic? YES; Bilirubin Urine Neg (Negative); Blood Urine 2+ (Negative); Glucose Urine UA Norm (Normal); Ketones Urine Negative (Negative); Leukocyte Esterase Urine Trace (Negative); Nitrate Urine Negative (Negative); Protein Urine Neg (Negative); Sulfosalicylic Acid Urine Negative (Negative); Urine Appearance Clear (CLEAR); Urine Color Colorless (Yellow); Urobilinogen Urine Neg (Negative); pH Urine 8 (5-7)
[2022-10-27 19:25] LABS: Add Urine Culture? No; Bacteria Urine TRACE /hpf; Mucus Urine TRACE /hpf; Squamous Epithelial Cell Urine 0-4 /hpf (0-5); WBC Urine 0-4 /hpf (0-5)
[2022-10-27] MEDS: oxyCODONE 5 mg IR Tab/Cap PO (20:06)
[2022-10-28] VITALS (9 sets, daily range): BP systolic 117–158; BP diastolic 69–78; PULSE 66–92; RESP 14–18; TEMP 36.5–37.8; O2SAT 95–98
[2022-10-28] MEDS: acetaminophen 325 mg Tablet 650 MG PO ×2 (00:28→23:53)
[2022-10-28] MEDS: sodium chloride 0.9% 1,000 ML 75 ML IV ×2 (00:32→13:32)
[2022-10-28] MEDS: cefTRIAXone 1,000 MG in sodium chloride 0.9% (plus) 50 ML 100 MG IV (03:35)
[2022-10-28 04:56] LABS: Basophils % 0.5 %; Eosinophils % 0.3 %; Hematocrit 44.3 % (42.0-52.0); Hemoglobin 14.9 g/dL (11.7-16.6); Lymphocytes # 0.7 10^3/uL (0.8-4.8); Lymphocytes % 10.4 %; Mean Corpuscular HGB Conc 33.6 g/dL (30.0-36.0); Mean Corpuscular Hemoglobin 32.5 pg (28.0-34.0); Mean Corpuscular Volume 96.5 fl (80-94); Mean Platelet Volume 10.3 fL (7.4-10.4); Monocytes # 0.5 10^3/uL (0.2-0.9); Monocytes % 7.4 %; Neutrophils # 5.37 10^3/uL (1.8-7.7); Neutrophils % 80.8 %; Nucleated Red Blood Cells % 0 %; Platelet Count 194 10^3/cmm (130-400); Red Blood Count 4.59 10^6/uL (4.1-5.3); Red Cell Distribution Width 12.3 % (12.1-15.1); White Blood Count 6.6 10^3/uL (4.0-10.0)
[2022-10-28 05:19] LABS: Alanine Aminotransferase 16 U/L (0-41); Alkaline Phosphatase 68 U/L (40-130); Anion Gap 14.4 (5-19); Aspartate Amino Transferase 18 U/L (0-40); Blood Urea Nitrogen 8 mg/dL (8-23); Calcium 9.5 mg/dL (8.5-10.5); Carbon Dioxide 26 mmol/L (22-29); Chloride 94 mmol/L (98-107); Globulin 2.8 g/dL (1.3-4.6); Glucose 99 mg/dL (65-115); Osmolality Calculated 270 mOsm/kg (285-295); Potassium 3.4 mmol/L (3.5-5.1); Sodium 131 mmol/L (136-145); Total Bilirubin 0.5 mg/dL (0.15-1.2); Total Protein 6.8 g/dL (6.6-8.7)
[2022-10-28] MEDS: lisinopril 20 mg Tablet 40 MG PO (08:29)
[2022-10-28] MEDS: predniSONE 5 mg Tablet PO (08:31)
[2022-10-28] MEDS: aspirin 81 mg EC Tablet PO (08:31)
[2022-10-28] MEDS: tamsulosin 0.4 mg Capsule PO (08:31)
[2022-10-28] MEDS: amlodipine 10 mg Tablet PO (08:31)
--- NOTE | 2022-10-28 08:48 | PM.DCS ---
Discharge Providers Date of Admission: 10/26/22 16:38 Date of Discharge: October 28, 2022 Attending Provider at Admission: Dorinda Pimentel MD Attending Provider at Discharge: Maya Bond MD Primary Care Provider: Triston Casiano DO Diagnoses at Discharge Discharge Diagnosis (1) Acute cystitis: Status: Acute (2) Hyponatremia: Status: Acute (3) HTN (hypertension): Status: Acute Qualifiers: Hypertension type: essential hypertension Qualified Code(s): I10 - Essential (primary) hypertension (4) Coronary artery disease: Status: Chronic Qualifiers: Coronary Disease-Associated Artery/Lesion type: [place] artery [place] vs. transplanted heart: [place] heart Associated angina: angina presence unspecified Qualified Code(s): I25.10 - Atherosclerotic heart disease of [place] coronary artery without angina pectoris (5) Weakness: Status: Acute Reason for Visit Reason for Visit: Chills\Fever\Possible UTI Discharge Data Studies Completed and Pending Completed Studies During Hospitalization Category Date Time Status CT abdomen pelvis w con* [id number] Stat Cat Scan 10/25/22 03:39 Completed XR chest 1V portable [id number] Stat Exams 10/25/22 03:39 Completed Pending at discharge Category Date Time Status Blood Culture Stat Lab 10/25/22 04:00 Results Radiology Impressions Abdomen/Pelvis CT 10/25/22 03:39 IMPRESSION: 1. No small bowel obstruction, abscess or free air. 2. Mild small bowel ileus. 3. Markedly enlarged prostate with mild pelvic/iliac chain lymphadenopathy. Advise correlation. 4. Possible cystitis. 5. Fecal filled colon, colonic diverticulosis, numerous bilateral renal cysts, and other chronic findings. COMMENTS: Consistent with the [employer]'s Incidental Findings Committee white paper (J Am Sin Radiol 2018): Any incidental renal lesion less than 1 cm or classified as too small to characterize, or any incidental cystic renal lesion characterized as simple-appearing, is likely benign. No follow-up imaging is recommended for these lesions per consensus recommendations based on imaging criteria. Chest X-Ray 10/25/22 03:39 IMPRESSION: 1. Stable chest. No acute finding. 2. Ocnw-spjutto-pnaq-right lung base atelectasis or scarring again noted. Laboratory Results WBC 6.6 10^3/uL (4.0-10.0) 10/28/22 04:24 RBC 4.59 10^6/uL (4.1-5.3) 10/28/22 04:24 Hgb 14.9 g/dL (11.7-16.6) 10/28/22 04:24 Hct 44.3 % (42.0-52.0) 10/28/22 04:24 MCV 96.5 fl (80-94) H 10/28/22 04:24 MCH 32.5 pg (28.0-34.0) 10/28/22 04:24 MCHC 33.6 g/dL (30.0-36.0) 10/28/22 04:24 RDW 12.3 % (12.1-15.1) 10/28/22 04:24 Plt Count 194 10^3/cmm (130-400) 10/28/22 04:24 MPV 10.3 fL (7.4-10.4) 10/28/22 04:24 Neut % (Auto) 80.8 % 10/28/22 04:24 Lymph % (Auto) 10.4 % 10/28/22 04:24 [place] % (Auto) 7.4 % 10/28/22 04:24 Eos % (Auto) 0.3 % 10/28/22 04:24 Baso % (Auto) 0.5 % 10/28/22 04:24 Neut # (Auto) 5.37 10^3/uL (1.8-7.7) 10/28/22 04:24 Lymph # (Auto) 0.7 10^3/uL (0.8-4.8) L 10/28/22 04:24 [place] # (Auto) 0.5 10^3/uL (0.2-0.9) 10/28/22 04:24 Eos # (Auto) 0.0 10^3/uL (0.0-0.8) 10/28/22 04:24 Baso # (Auto) 0.0 10^3/uL (0.0-0.1) 10/28/22 04:24 Nucleated RBC % (auto) 0 % 10/28/22 04:24 Nucleated RBCs # 0.0 /100WBC 10/28/22 04:24 Sodium 131 mmol/L (136-145) L 10/28/22 04:24 Potassium 3.4 mmol/L (3.5-5.1) L 10/28/22 04:24 Chloride 94 mmol/L (98-107) L 10/28/22 04:24 Carbon Dioxide 26 mmol/L (22-29) 10/28/22 04:24 Anion Gap 14.4 (5-19) 10/28/22 04:24 BUN 8 mg/dL (8-23) 10/28/22 04:24 Creatinine 1.0 mg/dL (0.7-1.2) 10/28/22 04:24 GFR Calculation Not Reportable 10/28/22 04:24 Glucose 99 mg/dL (65-115) 10/28/22 04:24 POC Glucose 126 mg/dL (70-110) H 10/27/22 10:35 Calculated Osmolality 270 mOsm/kg (285-295) L 10/28/22 04:24 Lactate 2.2 mmol/L (0.5-2.2) 10/25/22 03:45 Calcium 9.5 mg/dL (8.5-10.5) 10/28/22 04:24 Total Bilirubin 0.5 mg/dL (0.15-1.2) 10/28/22 04:24 AST 18 U/L (0-40) 10/28/22 04:24 ALT 16 U/L (0-41) 10/28/22 04:24 Alkaline Phosphatase 68 U/L (40-130) 10/28/22 04:24 Total Protein 6.8 g/dL (6.6-8.7) 10/28/22 04:24 Albumin 4.0 g/dL (3.5-5.2) 10/28/22 04:24 Globulin 2.8 g/dL (1.3-4.6) 10/28/22 04:24 Lipase 31 U/L (13-60) 10/25/22 03:45 Urine Color Colorless (Yellow) 10/27/22 18:00 Urine Appearance Clear (CLEAR) 10/27/22 18:00 Urine pH 8 (5-7) H 10/27/22 18:00 Ur Specific [place] 1.010 (1.005-1.030) 10/27/22 18:00 Urine Protein Neg (Negative) 10/27/22 18:00 Urine Glucose (UA) Norm (Normal) 10/27/22 18:00 Urine Ketones Negative (Negative) 10/27/22 18:00 Urine Blood 2+ (Negative) H 10/27/22 18:00 Urine Nitrate Negative (Negative) 10/27/22 18:00 Urine Bilirubin Neg (Negative) 10/27/22 18:00 Prot Sulfosalicylic Acd Negative (Negative) 10/27/22 18:00 Urine Urobilinogen Neg mg/dL (Negative) 10/27/22 18:00 Ur Leukocyte Esterase Trace (Negative) H 10/27/22 18:00 Urine RBC 5-10 /hpf (0-2) H 10/27/22 18:00 Urine WBC 0-4 /hpf (0-5) H 10/27/22 18:00 Ur Squamous Epith Cells 0-4 /hpf (0-5) H 10/27/22 18:00 Amorphous Sediment Not Reportable 10/27/22 18:00 Urine Bacteria Trace /hpf (NONE) 10/27/22 18:00 Urine Mucus Trace /hpf 10/27/22 18:00 Influenza Type A Ag negative (Negative) 10/25/22 03:41 Influenza Type B Ag negative (Negative) 10/25/22 03:41 SARS-CoV-2 Ag (Rapid) negative (Negative) 10/25/22 03:41 Vitals Last Vital Signs Temp 98.3 F 10/28/22 08:24 Pulse 92 10/28/22 08:24 Resp 16 10/28/22 08:24 BP 158/69 10/28/22 08:24 Pulse Ox 97 10/28/22 08:24 O2 Del Method 10/28/22 08:24 Discharge Plan Discharge Patient Disposition: Home Condition: Stable Prescriptions: New levofloxacin 500 mg tablet 500 mg PO Q24H 7 Days Qty: 7 0RF Continued benazepril 20 mg tablet 40 mg PO DAILY amlodipine 10 mg tablet 10 mg PO DAILY fluticasone propionate 50 mcg/actuation spray,suspension 1 spray INTRANASAL Q12H PRN (Reason: Allergy Symptoms) tamsulosin 0.4 mg capsule 0.4 mg PO QDAY Qty: 30 12RF tadalafil 20 mg tablet 20 mg PO DAILY PRN (Reason: sexual activity) Qty: 20 12RF Rx Instructions: 1 pill 1 hour before intercourse NO NITROGLYCERIN! prednisone 5 mg tablet 5 mg PO DAILY Qty: 90 0RF hydrochlorothiazide 25 mg tablet 25 mg PO DAILY Qty: 90 3RF aspirin 81 mg Tablet,Delayed Release (Dr/Ec) 81 mg PO DAILY atorvastatin 20 mg tablet 20 mg PO QPM Referrals: Triston Casiano DO [Primary Care Provider] - 7-10 days Discharge Diet: Cardiac Discharge Activity: Resume usual activity and Increase activity as tolerated Patient Instructions: Levofloxacin (By mouth), Urinary Tract Infection in Men (DC), Opioid Safety, Pain Management Activity Restrictions/Additional Instructions: Take Levaquin which is the antibiotic for next 7 days. Please follow-up with a primary care provider within next 1 week to 10 days. Coding Level of Care Code Acute Code for Chg Fwd Diagnoses Acute cystitis N30.00 Hyponatremia E87.1 HTN (hypertension) I10 Hypertension type: essential hypertension Coronary artery disease I25.10 Coronary Disease-Associated Artery/Lesion type: [place] artery [place] vs. transplanted heart: [place] heart Associated angina: angina presence unspecified Weakness R53.1
[2022-10-28] MEDS: potassium chloride ER 20 mEq Tablet 40 MEQ PO (09:15)
[2022-10-28] MEDS: ondansetron 2 mg/ML SDV 2 mL 4 MG IVP (09:23)
--- NOTE | 2022-10-28 11:43 | XRR_ITS ---
PROCEDURE INFORMATION: Exam: XR Chest Exam date and time: 10/28/2022 1:09 PM Age: 72 years old Clinical indication: Shortness of breath; Additional info: Pnue TECHNIQUE: Imaging protocol: Radiologic exam of the chest. Views: 1 view. COMPARISON: CR (CHEST, ) 10/25/2022 3:53 AM FINDINGS: Lungs: Unremarkable. No consolidation. Pleural spaces: Unremarkable. No pleural effusion. No pneumothorax. Heart/Mediastinum: Unremarkable. No cardiomegaly. Bones/joints: Stable sternotomy. Heterotopic bone formation over the right coracoclavicular ligament consistent with previous right AC separation/strain. XR/XR chest 1V portable [id number] IMPRESSION: No acute findings.
--- NOTE | 2022-10-28 13:07 | P.PN_ITS ---
Subjective Subjective: seen this am had a fever 100.0 ovenight and patient and are very concerned. oral temps have been normal however axillary are higher. pt is very bundled up with blankets has been having chills and some diaphoresis as well that he reports. RN present at bedside says he has quite a bit of nasal congestion Vitals/I&O/Wt Last Vital Signs Temp 100.0 F H 10/28/22 10:02 Pulse 92 10/28/22 08:24 Resp 16 10/28/22 08:24 BP 158/69 10/28/22 08:24 Pulse Ox 97 10/28/22 08:24 O2 Del Method 10/28/22 08:24 10/27/22 10/28/22 10/28/22 22:59 06:59 14:59 Intake Total 1550 / 1550 Output Total 1000 / 1000 1100 / 2100 Balance -1000 / -1000 450 / -550 Physical Exam Narrative: Constitutional: Well-developed, well-nourished white male appears in acute distress because of chills and weakness HENT: Head is atraumatic and normocephalic. EOMI Cardiovascular: Regular rate and rhythm. Gallop is noted. Respiratory: Lungs are clear to auscultation bilaterally GI: Abdomen is nontender to palpation. Mildly obese abdomen but no significant distention. No rebound or guarding. Normal bowel sounds. : No suprapubic tenderness but otherwise exam is deferred. Musculoskeletal: Well-healed surgical scar over the anterior aspect of the right knee. No tenderness of the flanks or paraspinal muscles. Neuro: Alert and oriented x3. No focal neurological deficits. Data 10/28/22 04:24 10/28/22 04:24 Micro: Microbiology 10/25/22 04:00 Urine Culture - Final Urine,Clean Catch Escherichia coli A&P Assessment and plan (1) Weakness: (2) Hyponatremia: (3) Acute cystitis: (4) Chronic steroid use: (5) Coronary artery disease: Qualifiers: Coronary Disease-Associated Artery/Lesion type: [place] artery [place] vs. transplanted heart: [place] heart Associated angina: angina presence unspecified Qualified Code(s): I25.10 - Atherosclerotic heart disease of [place] coronary artery without angina pectoris (6) BPH loc w urin obs/LUTS: (7) HTN (hypertension): Qualifiers: Hypertension type: essential hypertension Qualified Code(s): I10 - Essential (primary) hypertension Plan #Acute cystitis #Hyponatremia #Hypertension #History of CAD #Generalized weakness #Nasal congestion with history of sinusitis ? Has a past history of bacteremia with UTI prostatitis in 2019 with ICU admission with E. coli. Patient is at high risk for bacteremia. ? Blood cultures initially obtained in the ER negative so far. Urine culture growing pansensitive E. coli. ? Continue IV ceftriaxone at this time. May switch to Levaquin for 10 days at discharge. ? Patient is immunocompromise status with chronic oral steroid prednisone 5 mg daily. ? Recheck blood cultures today due to patient's complaint of chills, diaphoresis and subjective fevers. ? He is also feeling cold. ? WBC count is trending down. ? Continue normal saline 75 cc/h ? Hold hydrochlorothiazide at this time due to hyponatremia. ? Does have nasal congestion. Chest x-ray did not show any evidence of pneumonia on admission. We will repeat chest x-ray today. ? Continue tamsulosin at this time. Full code Lovenox for DVT prophylaxis Attestations Medical Necessity Statement*: Requires further hospitalization for management of complicated UTI secondary to E. coli, symptomatic hyponatremia requiring IV fluid resuscitation Other Coding Information Focused coding review requested Diagnoses Weakness R53.1 Hyponatremia E87.1 Acute cystitis N30.00 Chronic steroid use Coronary artery disease I25.10 Coronary Disease-Associated Artery/Lesion type: [place] artery [place] vs. transplanted heart: [place] heart Associated angina: angina presence unspecified BPH loc w urin obs/LUTS N40.1 HTN (hypertension) I10 Hypertension type: essential hypertension
[2022-10-28] MEDS: atorvastatin 40 mg Tablet 20 MG PO (17:17)
--- NOTE | 2022-10-28 17:57 | PC.NURSE ---
Urine culture back, currently on antibiotics for UTI/prostitis. Patient did receive chest xray to follow up with previous scans, xray looks good, had a temp early this shift, after removing several blankets oral and axilary temp are now 98.5F. Dr. Bond aware of patients condition
[2022-10-28] MEDS: oxyCODONE 5 mg IR Tab/Cap PO (20:21)
[2022-10-28] MEDS: magnesium hydroxide 30 mL UDC PO (20:21)
[2022-10-29] VITALS: BP 154/84; PULSE 87; RESP 15; TEMP 37.2; O2SAT 94
[2022-10-29] MEDS: sodium chloride 0.9% 1,000 ML 75 ML IV (03:00)
[2022-10-29 03:24] VITALS: BP 155/95; PULSE 73; RESP 16; TEMP 36.8; O2SAT 97
[2022-10-29] MEDS: cefTRIAXone 1,000 MG in sodium chloride 0.9% (plus) 50 ML 100 MG IV (04:33)
[2022-10-29 05:58] LABS: Basophils % 0.3 %; Eosinophils % 0.6 %; Hematocrit 38.9 % (42.0-52.0); Hemoglobin 13.5 g/dL (11.7-16.6); Lymphocytes # 0.6 10^3/uL (0.8-4.8); Lymphocytes % 9.1 %; Mean Corpuscular HGB Conc 34.7 g/dL (30.0-36.0); Mean Corpuscular Hemoglobin 33.3 pg (28.0-34.0); Mean Corpuscular Volume 95.8 fl (80-94); Mean Platelet Volume 9.7 fL (7.4-10.4); Monocytes # 0.9 10^3/uL (0.2-0.9); Monocytes % 13.3 %; Neutrophils # 5.22 10^3/uL (1.8-7.7); Neutrophils % 75.7 %; Nucleated Red Blood Cells % 0 %; Platelet Count 163 10^3/cmm (130-400); Red Blood Count 4.06 10^6/uL (4.1-5.3); Red Cell Distribution Width 12.6 % (12.1-15.1); White Blood Count 6.9 10^3/uL (4.0-10.0)
[2022-10-29 06:00] VITALS: PULSE 67
[2022-10-29 06:35] LABS: Anion Gap 12.3 (5-19); Blood Urea Nitrogen 10 mg/dL (8-23); Calcium 8.8 mg/dL (8.5-10.5); Carbon Dioxide 26 mmol/L (22-29); Chloride 97 mmol/L (98-107); Glucose 99 mg/dL (65-115); Osmolality Calculated 271 mOsm/kg (285-295); Potassium 4.3 mmol/L (3.5-5.1); Sodium 131 mmol/L (136-145)
[2022-10-29 08:00] VITALS: BP 138/73; PULSE 77; RESP 15; O2SAT 94
[2022-10-29] MEDS: aspirin 81 mg EC Tablet PO (10:37)
[2022-10-29] MEDS: predniSONE 5 mg Tablet PO (10:37)
[2022-10-29] MEDS: amlodipine 10 mg Tablet PO (10:37)
[2022-10-29] MEDS: tamsulosin 0.4 mg Capsule PO (10:37)
[2022-10-29] MEDS: lisinopril 20 mg Tablet 40 MG PO (10:37)
[2022-10-29 12:00] VITALS: BP 144/74; PULSE 69; TEMP 37.2; O2SAT 96
--- NOTE | 2022-10-29 12:29 | P.DS_ITS ---
Discharge Providers Date of Admission: 10/26/22 16:38 Date of Discharge: October 29, 2022 Attending Provider at Admission: Dorinda Pimentel MD Attending Provider at Discharge: Maya Bond MD Primary Care Provider: Triston Casiano DO Diagnoses at Discharge Discharge Diagnosis (1) Weakness: Status: Acute (2) Hyponatremia: Status: Acute (3) Acute cystitis: Status: Acute (4) Chronic steroid use: Status: Acute (5) Coronary artery disease: Status: Chronic Qualifiers: Associated angina: angina presence unspecified Coronary Disease- Associated Artery/Lesion type: [place] artery [place] vs. transplanted heart: [place] heart Qualified Code(s): I25.10 - Atherosclerotic heart disease of [place] coronary artery without angina pectoris (6) BPH loc w urin obs/LUTS: Status: Acute (7) HTN (hypertension): Status: Acute Qualifiers: Hypertension type: essential hypertension Qualified Code(s): I10 - Essential (primary) hypertension Reason for Visit Reason for Visit: Chills\Fever\Possible UTI Brief History: As per Dr. Stephane moncada Maldonado Cooley is a 72 year old male with history of prostatitis, CABG x3, hypertension, hypercholesterolemia, BPH, and chronic steroid use who presented to the ER this morning due to sudden onset of chills and nausea.? Patient states he has a history of prostatitis that led to sepsis and required a 2-day stay in ICU.? He notes that yesterday, he began noticing he had to urinate more than usual, and after going to sleep last night woke up with sudden onset of chills, nausea, dizziness, and a subjective fever.? He denies dysuria, but states that upon obtaining urinalysis in the ER he passed a significant amount of blood with noticeable clots.? He denies any suprapubic abdominal pain, back pain, or flank pain.? He also denies any history of kidney stones.? Patient has a surgical history positive for appendectomy, cholecystectomy, and recent surgery to his right knee and hip.? He is an everyday drinker of approximately 6 ounces of a lcohol.? He also smokes a cigar once per day.? Patient states he sees Dr. Vines for his history of BPH, and states that his last PSA was within normal limits.? He reportedly has a history of diabetes but states his last A1c was 5.8. Hospital Course Hospital Course Patient, hyponatremia blood cultures negative so far. Urine culture growing pansensitive E. coli. He was given IV ceftriaxone during hospital stay and switch to Levaquin at discharge. He is on chronic oral steroid 5 mg prednisone daily. Patient did have some nasal congestion and was having chills at one point. Chest x-ray did not show evidence of pneumonia. He remained afebrile for 48 hours prior to discharge and did fine. Discharged home in stable condition to follow-up with his primary care doctor.. He was asked to return to the ER should he have any fever, worsening symptoms. Physical Exam Narrative: Constitutional: Well-developed, well-nourished white male appears in acute distress because of chills and weakness HENT: Head is atraumatic and normocephalic. EOMI Cardiovascular: Regular rate and rhythm. Gallop is noted. Respiratory: Lungs are clear to auscultation bilaterally GI: Abdomen is nontender to palpation. Mildly obese abdomen but no significant distention. No rebound or guarding. Normal bowel sounds. : No suprapubic tenderness but otherwise exam is deferred. Musculoskeletal: Well-healed surgical scar over the anterior aspect of the right knee. No tenderness of the flanks or paraspinal muscles. Neuro: Alert and oriented x3. No focal neurological deficits. Discharge Data Studies Completed and Pending Completed Studies During Hospitalization Category Date Time Status CT abdomen pelvis w con* [id number] Stat Cat Scan 10/25/22 03:39 Completed XR chest 1V portable [id number] Routine Exams 10/28/22 11:43 Completed XR chest 1V portable [id number] Stat Exams 10/25/22 03:39 Completed Pending at discharge Category Date Time Status Blood Culture Stat Lab 10/25/22 04:00 Results Blood Culture Stat Lab 10/28/22 15:09 Results Radiology Impressions Abdomen/Pelvis CT 10/25/22 03:39 IMPRESSION: 1. No small bowel obstruction, abscess or free air. 2. Mild small bowel ileus. 3. Markedly enlarged prostate with mild pelvic/iliac chain lymphadenopathy. Advise correlation. 4. Possible cystitis. 5. Fecal filled colon, colonic diverticulosis, numerous bilateral renal cysts, and other chronic findings. COMMENTS: Consistent with the [employer] [employer]'s Incidental Findings Committee white paper (J Am Sin Radiol 2018): Any incidental renal lesion less than 1 cm or classified as too small to characterize, or any incidental cystic renal lesion characterized as simple-appearing, is likely benign. No follow-up imaging is recommended for these lesions per consensus recommendations based on imaging criteria. Chest X-Ray 10/28/22 11:43 IMPRESSION: No acute findings. Laboratory Results WBC 6.9 10^3/uL (4.0-10.0) 10/29/22 05:48 RBC 4.06 10^6/uL (4.1-5.3) L 10/29/22 05:48 Hgb 13.5 g/dL (11.7-16.6) 10/29/22 05:48 Hct 38.9 % (42.0-52.0) L 10/29/22 05:48 MCV 95.8 fl (80-94) H 10/29/22 05:48 MCH 33.3 pg (28.0-34.0) 10/29/22 05:48 MCHC 34.7 g/dL (30.0-36.0) 10/29/22 05:48 RDW 12.6 % (12.1-15.1) 10/29/22 05:48 Plt Count 163 10^3/cmm (130-400) 10/29/22 05:48 MPV 9.7 fL (7.4-10.4) 10/29/22 05:48 Neut % (Auto) 75.7 % 10/29/22 05:48 Lymph % (Auto) 9.1 % 10/29/22 05:48 [place] % (Auto) 13.3 % 10/29/22 05:48 Eos % (Auto) 0.6 % 10/29/22 05:48 Baso % (Auto) 0.3 % 10/29/22 05:48 Neut # (Auto) 5.22 10^3/uL (1.8-7.7) 10/29/22 05:48 Lymph # (Auto) 0.6 10^3/uL (0.8-4.8) L 10/29/22 05:48 [place] # (Auto) 0.9 10^3/uL (0.2-0.9) 10/29/22 05:48 Eos # (Auto) 0.0 10^3/uL (0.0-0.8) 10/29/22 05:48 Baso # (Auto) 0.0 10^3/uL (0.0-0.1) 10/29/22 05:48 Nucleated RBC % (auto) 0 % 10/29/22 05:48 Nucleated RBCs # 0.0 /100WBC 10/29/22 05:48 Sodium 131 mmol/L (136-145) L 10/29/22 05:48 Potassium 4.3 mmol/L (3.5-5.1) 10/29/22 05:48 Chloride 97 mmol/L (98-107) L 10/29/22 05:48 Carbon Dioxide 26 mmol/L (22-29) 10/29/22 05:48 Anion Gap 12.3 (5-19) 10/29/22 05:48 BUN 10 mg/dL (8-23) 10/29/22 05:48 Creatinine 1.0 mg/dL (0.7-1.2) 10/29/22 05:48 GFR Calculation Not Reportable 10/29/22 05:48 Glucose 99 mg/dL (65-115) 10/29/22 05:48 POC Glucose 126 mg/dL (70-110) H 10/27/22 10:35 Calculated Osmolality 271 mOsm/kg (285-295) L 10/29/22 05:48 Lactate 2.2 mmol/L (0.5-2.2) 10/25/22 03:45 Calcium 8.8 mg/dL (8.5-10.5) 10/29/22 05:48 Total Bilirubin 0.5 mg/dL (0.15-1.2) 10/28/22 04:24 AST 18 U/L (0-40) 10/28/22 04:24 ALT 16 U/L (0-41) 10/28/22 04:24 Alkaline Phosphatase 68 U/L (40-130) 10/28/22 04:24 Total Protein 6.8 g/dL (6.6-8.7) 10/28/22 04:24 Albumin 4.0 g/dL (3.5-5.2) 10/28/22 04:24 Globulin 2.8 g/dL (1.3-4.6) 10/28/22 04:24 Lipase 31 U/L (13-60) 10/25/22 03:45 Urine Color Colorless (Yellow) 10/27/22 18:00 Urine Appearance Clear (CLEAR) 10/27/22 18:00 Urine pH 8 (5-7) H 10/27/22 18:00 Ur Specific [place] 1.010 (1.005-1.030) 10/27/22 18:00 Urine Protein Neg (Negative) 10/27/22 18:00 Urine Glucose (UA) Norm (Normal) 10/27/22 18:00 Urine Ketones Negative (Negative) 10/27/22 18:00 Urine Blood 2+ (Negative) H 10/27/22 18:00 Urine Nitrate Negative (Negative) 10/27/22 18:00 Urine Bilirubin Neg (Negative) 10/27/22 18:00 Prot Sulfosalicylic Acd Negative (Negative) 10/27/22 18:00 Urine Urobilinogen Neg mg/dL (Negative) 10/27/22 18:00 Ur Leukocyte Esterase Trace (Negative) H 10/27/22 18:00 Urine RBC 5-10 /hpf (0-2) H 10/27/22 18:00 Urine WBC 0-4 /hpf (0-5) H 10/27/22 18:00 Ur Squamous Epith Cells 0-4 /hpf (0-5) H 10/27/22 18:00 Amorphous Sediment Not Reportable 10/27/22 18:00 Urine Bacteria Trace /hpf (NONE) 10/27/22 18:00 Urine Mucus Trace /hpf 10/27/22 18:00 Influenza Type A Ag negative (Negative) 10/25/22 03:41 Influenza Type B Ag negative (Negative) 10/25/22 03:41 SARS-CoV-2 Ag (Rapid) negative (Negative) 10/25/22 03:41 Vitals Last Vital Signs Temp 98.3 F 10/29/22 03:24 Pulse 77 10/29/22 08:00 Resp 15 10/29/22 08:00 BP 138/73 10/29/22 08:00 Pulse Ox 94 10/29/22 08:00 O2 Del Method 10/29/22 03:24 Discharge Plan Discharge Patient Disposition: Home Condition: Stable Prescriptions: Continued benazepril 20 mg tablet 40 mg PO DAILY amlodipine 10 mg tablet 10 mg PO DAILY fluticasone propionate 50 mcg/actuation spray,suspension 1 spray INTRANASAL Q12H PRN (Reason: Allergy Symptoms) tamsulosin 0.4 mg capsule 0.4 mg PO QDAY Qty: 30 12RF tadalafil 20 mg tablet 20 mg PO DAILY PRN (Reason: sexual activity) Qty: 20 12RF Rx Instructions: 1 pill 1 hour before intercourse NO NITROGLYCERIN! prednisone 5 mg tablet 5 mg PO DAILY Qty: 90 0RF hydrochlorothiazide 25 mg tablet 25 mg PO DAILY Qty: 90 3RF aspirin 81 mg Tablet,Delayed Release (Dr/Ec) 81 mg PO DAILY atorvastatin 20 mg tablet 20 mg PO QPM Discharge Orders: Discharge Order (Routine); Ordered 10/29/22 Ordered By: Maya Bond Referrals: Triston Casiano DO [Primary Care Provider] - 11/06/22 10:50 am Discharge Diet: Cardiac Discharge Activity: Resume usual activity and Increase activity as tolerated Patient Instructions: Levofloxacin (By mouth), Urinary Tract Infection in Men (DC), Opioid Safety, Pain Management Activity Restrictions/Additional Instructions: Take Levaquin which is the antibiotic for next 7 days. Please follow-up with a primary care provider within next 4-7 days. Discharge Attestations Time Spent in Discharge Care*: less than 30 min Quality Metrics Clinical Quality Measures [ No reported AMI, CVA or VTE this stay] Coding Level of Care Code Acute Code for Chg Fwd Diagnoses Weakness R53.1 Hyponatremia E87.1 Acute cystitis N30.00 Chronic steroid use Coronary artery disease I25.10 Associated angina: angina presence unspecified Coronary Disease-Associated Artery/Lesion type: [place] artery [place] vs. transplanted heart: [place] heart BPH loc w urin obs/LUTS N40.1 HTN (hypertension) I10 Hypertension type: essential hypertension
--- NOTE | 2022-10-29 13:01 | PC.SOCIAL ---
Pg 2 IMM Explained to pt Pg 2 IMM. No questions voiced. Provided pt a copy. Initialed, dated, & timed a copy & placed in chart.
== END 2022-10-29 14:10 | disposition home or self-care (01) | DRG 690 ==
LOC: ER 05:27 → MEDSURG 05:43
PROVIDERS: Internal Medicine; Student in an Organized Health Care Education/Training Program; Admitting Provider Student in an Organized Health Care Education/Training Program; Emergency Provider Emergency Medicine; PCP Family Medicine; Visit Provider Internal Medicine
DX: N30.00 Acute cystitis without hematuria (principal); E87.1 Hypo-osmolality and hyponatremia; B96.20 Unspecified Escherichia coli [E. coli] as the cause of diseases classified elsewhere; I25.10 Atherosclerotic heart disease of native coronary artery without angina pectoris; Z95.1 Presence of aortocoronary bypass graft; I10 Essential (primary) hypertension; E78.00 Pure hypercholesterolemia, unspecified; N40.1 Benign prostatic hyperplasia with lower urinary tract symptoms; Z79.52 Long term (current) use of systemic steroids; F10.10 Alcohol abuse, uncomplicated; F17.210 Nicotine dependence, cigarettes, uncomplicated; E11.9 Type 2 diabetes mellitus without complications; Z79.82 Long term (current) use of aspirin; M35.3 Polymyalgia rheumatica; Z87.440 Personal history of urinary (tract) infections; Z96.641 Presence of right artificial hip joint; Z96.651 Presence of right artificial knee joint; R09.81 Nasal congestion
CPT/HCPCS: 36415; 36416; 71045; 74177; 80048; 80053; 81001; 82962; 83605; 83690; 85025; 87040; 87077; 87086; 87186; 87426; 87804; 93005; 96365; 96375; 97110; 99285; G0378; J0696; J2270; J2405; J7030; J7512; Q9967

== ENCOUNTER → 2022-11-12 10:21 | Outpatient (BNVA) | payer MEDICARE, OTHER, SELFPAY | PROVIDERS: PCP Family Medicine; Visit Provider Family Medicine | DX: E87.1 Hypo-osmolality and hyponatremia (principal); R53.1 Weakness; R42 Dizziness and giddiness | CPT/HCPCS: 80048; 99495 ==